=== PATIENT | male | born 1975 | race Caucasian/White ===

== ENCOUNTER 2021-08-31 02:42 | Inpatient (IN) | payer OTHER ==
[2021-08-31] MEDS ORDERED: HEPARIN SODIUM 1,000 UN/ML (10ML VL) IV ONE (02:46)
[2021-08-31] MEDS ORDERED: ASPIRIN 300 MG SUPP RECTAL STA (02:47)
[2021-08-31] MEDS ORDERED: IV FLUID CONTINUATION 1,000 ML IV ONE (03:00)
[2021-08-31 03:01] LABS: Basophils # (A) 0.1 k/uL (0-0.2); Basophils % (A) 1 %; Eosinophils # (A) 0.1 k/uL (0-0.7); Eosinophils % (A) 1 %; HCT 46.5 % (39.0-53.0); HGB 14.6 gm/dL (13.0-17.5); Hypochromasia Slight; Lymphocytes # (A) 3.9 k/uL (1.0-4.8); Lymphocytes % (A) 33 %; MCH 30.7 pg (25.0-35.0); MCHC 31.4 g/dL (31.0-37.0); MCV 97.6 fL (80.0-100.0); Mean Platelet Volume 8.3; Monocytes # (A) 0.5 k/uL (0-1.0); Monocytes % (A) 5 %; Neutrophils # (A) 7.3 k/uL (1.3-7.7); Neutrophils % (A) 60 %; Platelet Count 233 k/uL (150-450); RBC 4.77 m/uL (4.30-5.90); RDW 13.6 % (11.5-15.5)
--- NOTE | 2021-08-31 03:01 | ED ---
Chest Pain HPI - General Stated Complaint: STEMI Time Seen by Provider: 08/31/21 02:45 Source: EMS Mode of arrival: EMS Limitations: altered mental status - History of Present Illness Initial Comments: 's patient is a 46-year-old man who is brought by ambulance from his home to be evaluated for chest pain. All of the history is from EMS, as the patient became unresponsive and then was subsequently intubated. EMS reports that the patient had called them regarding chest pain and he had indicated the epigastric and substernal area. While they were attempting to assess the patient he became unresponsive. EMS reports that they had placed him on cardiac exercise specialist which showed V. fib. ACLS was instituted, the patient had chest compressions, was shocked and then at the next pulse check they did find pulses. Patient was subsequently intubated as he was still unresponsive, for airway protection. I patient had IV started IV fluids were commenced and he was transported here. Based on the EMS call, the [facility] here was activated. The patient not able to give any history of course. We are not able find any past history and the patient's record. MD Complaint: chest pain -: hour(s) Onset: during rest Pain Location: substernal Consistency: constant Anginal Symptoms: vomiting Treatments Prior to Arrival: oxygen, defibrillation, CPR - Related Data Home Medications Medication Instructions Recorded Confirmed No Known Home Medications 08/31/21 08/31/21 Allergies Allergy/AdvReac Type Severity Reaction Status Date / Time green pepper Allergy Anaphylaxis Verified 08/31/21 09:07 Penicillins Allergy Unknown Verified 08/31/21 14:02 Review of Systems ROS Statement: Those systems with pertinent positive or pertinent negative responses have been documented in the HPI. ROS Other: All systems not noted in ROS Statement are negative. Limitations: ROS unobtainable due to patients medical condition EKG Findings - EKG Results: EKG: interpreted by ERMD EKG shows: atrial fibrillation (Rate approximate 145 bpm) - Blocks, [place], Hypertrophy, ST Abn: AV and intraventricular conduction: left bundle branch block (fixed/intermittent, complete/incomplete) QRS axis and voltage: left axis deviation (-30 to -90) Past Medical History Past Medical History: No Reported History History of Any Multi-Drug Resistant Organisms: None Reported Past Surgical History: No Surgical Hx Reported Past Psychological History: No Psychological Hx Reported Smoking Status: Unknown if ever smoked Past Alcohol Use History: Unable to Obtain Past Drug Use History: Unable to Obtain - Past Family History Father Family Medical History: Myocardial Infarction (NM) Additional Family Medical History / Comment(s): at 64 of [place], also uncle of mi as well as paternal grandmother and grandfather who both has chf as well. General Exam General appearance: obtunded Head exam: Present: atraumatic, normocephalic Eye exam: Absent: scleral icterus, conjunctival injection ENT exam: Present: other (There is a 7.5 endotracheal tube secured with a bite block.) Neck exam: Present: normal inspection. Absent: tenderness Respiratory exam: Present: rhonchi (Few rhonchi with bagging.). Absent: wheezes, rales, stridor, decreased breath sounds Cardiovascular Exam: Present: tachycardia, irregular rhythm, normal heart sounds. Absent: systolic murmur, diastolic murmur, rubs, gallop GI/Abdominal exam: Present: soft. Absent: distended, tenderness, guarding, rebound, rigid, mass exam: Present: normal inspection Extremities exam: Present: normal inspection, normal capillary refill. Absent: pedal edema, calf tenderness Back exam: Present: normal inspection Neurological exam: Present: altered Skin exam: Present: warm, dry, intact, mottled. Absent: rash Course Vital Signs 08/31/21 08/31/21 02:43 02:48 Pulse Rate 133 H 162 H Respiratory 18 26 H Rate Blood Pressure 100/66 110/82 O2 Sat by Pulse 100 100 Oximetry Chest Pain MDM - MDM This patient is a 46-year-old man brought by ambulance to be evaluated for chest pain. The patient did experience out of Hospital ventricular fibrillation, which was then shocked back into a rhythm with palpable pulses. Patient is seen in the resuscitation bay by myself and by Dr. Lund as he had arrived from the initial activation. When the label stitcher personnel had a arrived the patient was transferred to the [facility]. Critical Care Time Critical Care Time: Yes (25 minutes) Disposition Clinical Impression: Cardiac arrest, STEMI (ST elevation myocardial infarction), Ventricular fibrillation Disposition: ADMITTED IP TO THIS HOSP Condition: Critical Is patient prescribed a controlled substance at d/c from ED?: No
--- NOTE | 2021-08-31 03:03 | XR ---
EXAMINATION TYPE: XR chest 1V portable DATE OF EXAM: 08/31/2021 COMPARISON: NONE HISTORY: Chest pain TECHNIQUE: Single view FINDINGS: Endotracheal tube is 4 cm from the madhu. There is nasogastric tube in the stomach. There is mild coarse pulmonary interstitial density. There is no obvious heart failure. There is no pleural effusion. IMPRESSION: Pulmonary interstitial mild infiltrates could be pulmonary fibrosis. No heart failure. En dotracheal tube in good position.
[2021-08-31] MEDS ORDERED: VERAPAMIL 2.5 MG/ML 2 ML AMP ONE (03:05)
[2021-08-31] MEDS ORDERED: LIDOCAINE 1% INJ 10MG/ML (20 ML MDV) ONE (03:05)
--- NOTE | 2021-08-31 03:07 | P.CRDCN ---
History of Present Illness History of present illness: HISTORY OF PRESENTING ILLNESS This is a pleasant 46-year-old with unknown past medical history other than a collapsed lung approximately 10 years ago. Patient currently intubated and unresponsive and history is supplied by EMS. Apparently patient had been complaining of chest pain that started tonight. En route patient was being hooked up for EKG and then became somewhat more unresponsive and then went into V. fib and CPR was performed for approximately 5 minutes. Patient was given 5 mg of Versed by EMS and intubated and currently nonresponsive however occasionally bucking the vent. He was diaphoretic and short of breath before intubation. Per EMS he had a fast heart rate in the 150s to 160s before the V. fib. Patient was cardioverted and initial EKG shows A. fib with RVR, heart rates 150, right bundle branch appearing with ST elevation aVR as well as the septal leads and lateral leads. Patient was not given aspirin in the EMS and therefore rectal aspirin was given in the ER. Blood pressure is borderline, currently 90s over 60s. Appears cool extremities. REVIEW OF SYSTEMS Unable to perform secondary to intubation, unresponsive PHYSICAL EXAMINATION Vital signs reviewed. CONSTITUTIONAL: Intubated and unresponsive, ill-appearing HEENT: Head is normocephalic. Pupils are equal, round. Sclerae anicteric. +ET tube CHEST EXAMINATION: Mild crackles HEART EXAMINATION: Irregularly irregular rate and rhythm. S1, S2 heard. No murmurs, gallops or rub. ABDOMEN: Soft, nontender. Positive bowel sounds. EXTREMITIES: 2+ peripheral pulses, no lower extremity edema and no calf tenderness. + Mildly cool extremities NEUROLOGIC EXAMINATION: Patient is unresponsive on ventilator ASSESSMENT 1. Anterior lateral STEMI 2. Status post cardiac arrest, V. fib per EMS. 5 minutes per EMS 3. New-onset atrial fibrillation with RVR 4. Unresponsive, questionable related to anesthetics given in EMS versus anoxic brain injury 5. History of collapsed lung PLAN Emergency heart catheterization. Heparin, aspirin, no beta orin given low blood pressure and likely cardiogenic shock. Mild permissive tachycardia currently in A. fib however monitor hemodynamics. Further recommendations to follow. Prognosis guarded. Monitor neuro progress. Past Medical History Past Medical History: No Reported History History of Any Multi-Drug Resistant Organisms: None Reported Past Surgical History: No Surgical Hx Reported Past Psychological History: No Psychological Hx Reported Smoking Status: Unknown if ever smoked Past Alcohol Use History: Unable to Obtain Past Drug Use History: Unable to Obtain Physical Exam Vitals: Vital Signs Pulse Resp BP Pulse Ox 08/31/21 02:43 133 H 18 100/66 100 Intake and Output 08/30/21 08/30/21 08/31/21 14:59 22:59 06:59 Other: Weight 81.647 kg Results Current Medications Generic Name Dose Route Start Last Admin Trade Name Freq PRN Reason Stop Dose Admin Heparin Sodium/Sodium Chloride 250 mls @ 9.798 mls/hr 08/31/21 03:00 25,000 unit/ Sodium Chloride IV .Q24H [facility] Protocol 12 UNITS/KG/HR Intake and Output 08/30/21 08/30/21 08/31/21 14:59 22:59 06:59 Other: Weight 81.647 kg Patient Weight 08/31/21 06:59 Weight 81.647 kg
[2021-08-31 03:10] LABS: Partial Thromboplastin Time 23.8 sec (22.0-30.0); Prothrombin Time 10.4 sec (9.0-12.0)
[2021-08-31] MEDS ORDERED: .fentaNYL (PF) 50 MCG/ML 2 ML AMP ONE (03:10)
[2021-08-31] MEDS ORDERED: LIDOCAINE 1% INJ 10MG/ML (20 ML MDV) SQ ONE (03:12)
[2021-08-31] MEDS ORDERED: VERAPAMIL SYRINGE (5 MG/10 ML) INTRAARTER ONE (03:14)
[2021-08-31 03:15] LABS: Albumin 3.3 g/dL (3.5-5.0); Total Bilirubin 0.2 mg/dL (0.2-1.3); Total Protein 5.8 g/dL (6.3-8.2)
[2021-08-31] MEDS: .fentaNYL (PF) 50 MCG/ML 2 ML AMP IV ONE ×2 (03:20→04:19)
[2021-08-31] MEDS: HEPARIN SODIUM 1,000 UN/ML (10ML VL) IV ONE ×3 (03:20→04:51)
[2021-08-31] MEDS ORDERED: MIDAZOLAM 2 MG/2 ML VIAL IV ONE ×4 (03:20→05:04)
[2021-08-31] MEDS ORDERED: TIROFIBAN BOLUS 12.5MG/250 ML BAG IV ONE (03:35)
[2021-08-31] MEDS ORDERED: PRASUGREL 10 MG TAB ONE (03:37)
[2021-08-31] MEDS ORDERED: ASPIRIN 325 MG TAB ONE (03:38)
[2021-08-31] MEDS ORDERED: TIROFIBAN 12.5MG-250ML NS 250 ML IV ONE (03:40)
[2021-08-31] MEDS: NITROGLYCERIN 1000MCG/10ML SYRINGE INTRACORON ONE ×3 (03:45→04:12)
[2021-08-31] MEDS ORDERED: PRASUGREL 10 MG TAB OG-TUBE ONE (03:45)
[2021-08-31] MEDS ORDERED: ASPIRIN 325 MG TAB OG-TUBE ONE (03:45)
[2021-08-31] MEDS ORDERED: IOPAMIDOL-370 125ML BTL INJ ONE (04:00)
[2021-08-31] MEDS ORDERED: IOPAMIDOL-370 100ML BTL INJ ONE (04:11)
[2021-08-31] MEDS ORDERED: PROPOFOL 10 MG/ML 100 ML VIAL IV ONE (05:05)
[2021-08-31] MEDS ORDERED: ZOLPIDEM 5 MG TAB PO PRN (05:25)
[2021-08-31] MEDS ORDERED: RX INFO: IV CONTRAST WAS GIVEN 1 EACH MISC MISCELLANE PRN (05:25)
[2021-08-31] MEDS ORDERED: ATROPINE SULFATE 0.1 MG/ML 10ML SYRINGE IV PRN (05:25)
[2021-08-31] MEDS ORDERED: MAG HYDROX/AL HYDROX/SIMETH 30 ML CUP PO PRN (05:25)
[2021-08-31] MEDS ORDERED: NITROGLYCERIN SL TABS 0.4 MG TAB SUBLINGUAL PRN (05:25)
[2021-08-31] MEDS ORDERED: HEPARIN SOD,PORK IN 0.45% NACL 25,000 UNIT in 0.45% NACL 1 250ML.BAG IV SCH (05:30)
--- NOTE | 2021-08-31 05:47 | P.PRCINT ---
Percutaneous Coronary Int. - Percutaneous Coronary Intervention Percutaneous Coronary Intervention: PROCEDURES PERFORMED: Left heart catheterization, bilateral coronary angiography, Impella CP placement from right femoral approach, PCI of proximal LAD with a 3.5 x 15 mm Xience IVON, PTCA diagonal 2 with a 2.5 x 12 mm balloon, PCI mid LAD with overlapping 2.75 x 12 and 2.5 x 8mm Xience IVON, right femoral angiogram, left femoral and right SFA sheath placement with external left femoral to right SFA bypass placement INDICATION: STEMI HISTORY: Patient is a pleasant 46-year-old male with a history of collapsed lung and who called EMS secondary to chest pain. During transportation patient had a V. fib arrest and was intubated with approximately 5 minutes of downtime with CPR performed and defibrillation. Patient remained sedated on ventilator and he came to emergency department and was found to have anterior lateral ST elevation. Therefore recommendations were for emergency heart catheterization. PROCEDURE: No family was available and patient was intubated therefore no consent was able to be obtained. Patient was taken to the catheterization lab and prepped and draped in usual fashion. 1% lidocaine was used to anesthetize the right radial artery. A 6-Kyrgyz sheath was placed in the right radial artery using modified Seldinger technique. A 6-Kyrgyz CLS 3.0 guide was used to engage the left main and initial images showed occlusion of proximal LAD with minimal blood pressure 75/65 with findings consistent with cardiogenic shock. Therefore decision was made to proceed with Impella CP placement. Using ultrasound guidance and micro-catheter a 6-Kyrgyz sheath was placed. Preclose was performed with one perclose. This was up sized to a 14-Kyrgyz Impella sheath. Next a 6-[place]yr[place] pigtail catheter was inserted in the left ventricle. LVEDP was measured at 39. The Impella CP was then place in the LV and turned on with output of approximately 3.5L/min. A 0.014 BMW wire was advanced into the distal LAD. Predilation was performed with a 2.5 x 12 mm balloon. Next a 3.5 x 15 mm Xience IVON was placed in the proximal LAD. There was a mid LAD 95% stenosis right at the site of a small caliber diagonal 2 branch. Therefore the diagonal 2 branch was predilated with a 2.5 x 12 mm balloon. Next a 2.75 x 12 mm Xience IVON was placed "jailing" the diagonal branch. There was a more distal lesion and this was covered with a 2.5 x 8 mm Xience IVON. There was poor flow down the diagonal branch however this appeared to be a small caliber vessel and given contrast load and patient's shock, felt best treated medically. Preintervention there was DUSTIN 0 flow and 100% stenosis. Postintervention there was DUSTIN 3 flow and 0% stenosis. RCA angiography was performed with a 5-Kyrgyz FR5. Angiogram was performed through the Impella sheath and was noted to be occlusive. Therefore the sheath was torn away and a pigtail catheter was advanced from the right radial site however there was still poor flow down the right leg. Therefore the decision was made to create a bypass. A left 6-Kyrgyz sheath was placed in the left femoral artery using ultrasound guidance. A right 6-Kyrgyz SFA sheath was placed in an antegrade fashion using ultrasound guidance. This was connected with to being with adequate flow down the right leg. The femoral sheaths were sutured in place. The right radial sheath was removed and a TR band was placed with hemostasis achieved. The patient tolerated the procedure well. Patient was transported back to the post catheterization holding area in stable condition. Conscious Sedation: Patient was monitored under the direct supervision of vision of myself for conscious sedation using Versed and fentanyl for a total duration of 120 minutes HEMODYNAMICS: Aorta: 75/65 LV: 80/20, LVEDP 39 SELECTIVE CORONARY ARTERIOGRAPHY: LEFT MAIN: The left main is a large caliber vessel which bifurcates into the LAD and circumflex. There is no significant stenosis. LEFT ANTERIOR DESCENDING CORONARY ARTERY: LAD is a large caliber vessel which wraps around to the apex. There is 100% proximal LAD stenosis and a mid LAD 90% stenosis at a small caliber diagonal 2 branch. LEFT CIRCUMFLEX CORONARY ARTERY: Left circumflex is a moderate caliber vessel without significant stenosis. RIGHT CORONARY ARTERY: The right coronary artery is a moderate to large caliber vessel which gives off a PDA and PLV branch and is the dominant vessel. There is diffuse proximal to mid 100% stenosis with mild right to right collaterals and [id number] collaterals seen. FINAL IMPRESSION: 1. CAD as described above including proximal LAD 100% stenosis and mid LAD 95% stenosis status post PCI of proximal LAD with a 3.5 x 15 mm Xience IVON, PTCA diagonal 2 with a 2.5 x 12 mm balloon, PCI mid LAD with overlapping 2.75 x 12 and 2.5 x 8mm Xience IVON 2. Additional 100% RCA stenosis with right to right and [id number] collaterals which appears chronic 3. Cardiogenic shock status post Impella CP placement 3. Right femoral sheath being occlusive, s/p left femoral to right SFA external bypass PLAN: 1. Aggressive risk factor modification per most recent ACC/AHA guidelines. 2. Continue dual antiplatelets for 12 months 3. Attempt to wean Impella CP as able 4. Continue to monitor vascular status. Continue with left femoral to right SFA bypass, flush every 2 hours. Hopeful short course of LVAD. 5. Monitor neurologic status.
[2021-08-31] MEDS: HEPARIN SODIUM,PORCINE 12,500 UNIT in DEXTROSE 5% IN WATER 500 ML IV SCH ×2 (06:03)
[2021-08-31 06:08] LABS: Glucose,Whole Blood 286 mg/dL (75-99)
[2021-08-31] MEDS: HEPARIN SOD,PORK IN 0.45% NACL 25,000 UNIT in 0.45% NACL 1 250ML.BAG IV SCH (06:14)
[2021-08-31 06:25] LABS: Basophils # (A) 0.1 k/uL (0-0.2); Basophils % (A) 0 %; Eosinophils % (A) 0 %; HCT 45.4 % (39.0-53.0); HGB 14.9 gm/dL (13.0-17.5); Lymphocytes # (A) 1.8 k/uL (1.0-4.8); Lymphocytes % (A) 7 %; MCH 30.9 pg (25.0-35.0); MCHC 32.9 g/dL (31.0-37.0); MCV 93.9 fL (80.0-100.0); Mean Platelet Volume 8.5; Monocytes # (A) 0.8 k/uL (0-1.0); Monocytes % (A) 3 %; Neutrophils % (A) 90 %; Platelet Count 283 k/uL (150-450); RBC 4.83 m/uL (4.30-5.90); RDW 13.7 % (11.5-15.5); WBC 26.8 k/uL (3.8-10.6)
[2021-08-31 06:46] LABS: Partial Thromboplastin Time 97.9 sec (22.0-30.0); Prothrombin Time 10.9 sec (9.0-12.0)
--- NOTE | 2021-08-31 06:59 | XR ---
EXAMINATION TYPE: XR chest 1V portable DATE OF EXAM: 08/31/2021 CLINICAL HISTORY: LVAD placement. TECHNIQUE: Single AP portable upright view of the chest is obtained. COMPARISON: Chest x-ray from earlier today FINDINGS: Stable endotracheal and orogastric tubes. New left ventricular assistance catheter presume d in the aorta with leads in the aortic root and left ventricle. Worsening central vascular congestion and perihilar opacities. Cardiac silhouette size is stable and within normal limits. Osseous structures are intact. IMPRESSION: As above.
--- NOTE | 2021-08-31 07:51 | P.CNPUL ---
History of Present Illness Consult date: 08/31/21 Chief complaint: cardiac arrest History of present illness: Patient is a pleasant 46-year-old male with a history of collapsed lung and who called EMS secondary to chest pain. During transportation patient had a V. fib arrest and was intubated with approximately 5 minutes of downtime with CPR performed and defibrillation. Patient remained sedated on ventilator and he came to emergency department and was found to have anterior lateral ST el evation. Therefore recommendations were for emergency heart catheterization.eft heart catheterization, bilateral coronary angiography, Impella CP placement from right femoral approach, PCI of proximal LAD with a 3.5 x 15 mm Xience IVON, PTCA diagonal 2 with a 2.5 x 12 mm balloon, PCI mid LAD with overlapping 2.75 x 12 and 2.5 x 8mm Xience IVON, right femoral angiogram, left femoral and right SFA sh eath placement with external left femoral to right SFA bypass placement was also given an empiric a device which is currently running at with his P9 with an output of 3.4 L per minute. She is currently in normal sinus rhythm. LV end- diastolic pressure was 39. The patient is currently on IV heparin. He is on no antiarrhythmics. His IV fluids running at 20 mL an hour in the urine output is normal but of 150 mL over the past 1 hour. He is on no pressors at this point in time. Most recent blood pressure is 110/96. He remains on a mechanical ventilator. He is sedated with propofol which is running at 30 mics are as per kilogram per minute. He is on assist control mode at the rate of 18, tidal volume of 450, FiO2 of 100% with a PEEP of 5. The blood gases from this morning is still pending. A chest x-ray is showing acute pulmonary edema. ET tube is in a good location. The patient has not followed device. The orogastric tube seems to be in a good location. No blood gases available yet. The patient has elevated blood sugar. There is also some mild leukocytosis, consider the possibility of an underlying aspiration. OG tube is in place and output is nonbloody. Review of Systems ROS unobtainable: due to endotracheal tube Past Medical History Past Medical History: No Reported History, Coronary Artery Disease (CAD) Additional Past Medical History / Comment(s): No history is available on this patient History of Any Multi-Drug Resistant Organisms: None Reported Past Surgical History: No Surgical Hx Reported Past Psychological History: No Psychological Hx Reported Smoking Status: Current every day smoker, Unknown if ever smoked Past Alcohol Use History: Unable to Obtain Past Drug Use History: Unable to Obtain Medications and Allergies Allergies Allergy/AdvReac Type Severity Reaction Status Date / Time Unable to Assess Allergy Unverified 08/31/21 03:20 Physical Exam Vitals: Vital Signs Pulse Pulse Resp BP Pulse Ox 08/31/21 07:00 115 H 32 H 97 08/31/21 06:45 120 H 32 H 99 08/31/21 06:30 118 H 98 08/31/21 06:15 120 H 99 08/31/21 06:00 118 H 30 H 99 08/31/21 04:00 30 H 08/31/21 02:53 138 H 142 H 24 108/60 100 08/31/21 02:48 162 H 26 H 110/82 100 08/31/21 02:43 133 H 18 100/66 100 Intake and Output 08/30/21 08/31/21 08/31/21 22:59 06:59 14:59 Intake Total 375 10 Output Total 125 40 Balance 250 -30 Intake: IV 375 10 Normal Saline 10 10 Output: Urine 125 40 Other: Voiding Method Indwelling Catheter Weight 81.647 kg 84.7 kg ABP, PAP, CO, CI - Last 8 Hours Arterial Blood Pressure 86/77 Arterial Blood Pressure 95/81 Arterial Blood Pressure 83/73 Arterial Blood Pressure 80/69 As the patient is calm comfortable sedated intubated on a mechanical ventilator. Orotracheal and orogastric tube are both in place. Head exam was generally normal. There was no scleral icterus or corneal arcus. Mucous membranes were moist. Neck was supple and without jugular venous distension, thyromegaly, or carotid bruits. Carotids were easily palpable bilaterally. There was no adenopathy. Lungs sounds are diminished and the patient has some rales in the lung bases bilaterally Cardiac exam revealed the PMI to be normally situated and sized. The rhythm was regular and no extrasystoles were noted during several minutes of auscultation. The first and second heart sounds were normal and physiologic splitting of the second heart sound was noted. There were no murmurs, rubs, clicks, or gallops. Abdominal exam revealed normal bowel sounds. The abdomen was soft, non-tender, and without masses, organomegaly, or appreciable enlargement of the abdominal a dewayne. Extremities revealed diminished pulses bilaterally and the patient has no pulse on the right foot including dorsalis pedis and posterior tibialis. The pulses are obtained by Doppler. The feet bilaterally are warm. The patient has an intolerance advice in his right groin. Neurologically, the patient is sedated with propofol. Pupils are equal and reactive to light. No agitation. No seiz ure activity has been noted. Results - Laboratory Findings CBC and BMP: 08/31/21 06:05 08/31/21 02:45 PT/INR, D-dimer PT 10.9 sec (9.0-12.0) 08/31/21 06:05 INR 1.0 (<1.2) 08/31/21 06:05 Abnormal lab findings: Abnormal Labs 08/31/21 08/31/21 08/31/21 02:45 02:45 02:45 WBC 12.0 H Neutrophils # APTT Sodium 135 L Carbon Dioxide 15 L Creatinine 1.40 H Glucose 336 H POC Glucose (mg/dL) Calcium 8.0 L AST 99 H Troponin I 0.091 H* Total Protein 5.8 L Albumin 3.3 L 08/31/21 08/31/21 08/31/21 06:05 06:05 06:07 WBC 26.8 H Neutrophils # 24.0 H APTT 97.9 H Sodium Carbon Dioxide Creatinine Glucose POC Glucose (mg/dL) 286 H Calcium AST Troponin I Total Protein Albumin - Diagnostic Findings Chest x-ray: image reviewed Assessment and Plan Plan: [address] segment elevation myocardial infarction with secondary V. fib cardiac arrest and a downtime of around 5 minutes during which the patient received CPR. The patient was taken to catheterization and the patient was given an Impella device through the right femoral artery and the patient was given 3 stents in his LAD. Currently on a combination of aspirin and Effient and IV heparin. 2 acute hypoxic respiratory failure secondary to above currently intubated on mechanical ventilator 3 acute pulmonary edema secondary to acute MO and cardiac arrest. The patient left ventricular end-diastolic pressure was elevated at 39. Consider cardiogenic shock post MO/cardiac arrest. 4 acute cardiogenic shock, secondary to above 5 acute hyperglycemia secondary to above 6 diminished pulses in all 4 extremities, positive pain by Doppler signal and the patient has an Impella for hemodynamic support. 7 acute kidney injury in the creatinine is 1.4 8 acute anion gap metabolic acidosis secondary to above, consider underlying lactic acidosis secondary to arrest 9 V. fib cardiac arrest secondary to above 10 acute leukocytosis reactive versus infectious Plan Continue ventilator support. Obtain a blood gas Try to establish a triple lumen catheter and arterial line if possible. This will be a difficult test knowing that the patient has markedly diminished pulses at this point in time Continue hemodynamic support and the patient hasn't in [place] device with a flow of 3.4 L per minute and augment the blood pressure of 111/90 Continue aspirin and Effient Continue IV heparin Patient is currently in acute pulmonary edema. May benefit from a dose of diuretic and this will be discussed with cardiology Monitor renal function Start the patient also has been insulin coverage for blood sugar control With the patient IV Zosyn 3.375 g every 12 hours every 12 hours for any potential aspiration check lactic acid level Check urine drug screen Lipid profile Echo Condition is critical and will continue to follow. High mortality risk based on above-mentioned comorbidities. Time with Patient: Greater than 30
[2021-08-31 08:12] LABS: ABG Base Excess -7.1 mmol/L; ABG HCO3 19 mmol/L (21-25); ABG PCO2 36 mmHg (35-45); ABG PH 7.33 (7.35-7.45); ABG PO2 383 mmHg (83-108); ABG TCO2 20 mmol/L (19-24)
[2021-08-31 08:13] LABS: Allen Test Performed? NO
[2021-08-31] MEDS ORDERED: NITROPRUSSIDE 50 MG in DEXTROSE 5% IN WATER 250 ML IV SCH ×4 (08:45→20:30)
[2021-08-31 09:00] LABS: Partial Thromboplastin Time 51.2 sec (22.0-30.0)
[2021-08-31] MEDS ORDERED: FUROSEMIDE 10 MG/ML 4 ML VIAL IV SCH (09:00)
[2021-08-31 09:40] LABS: Glucose,Whole Blood 171 mg/dL (75-99)
--- NOTE | 2021-08-31 09:47 | ECHOF ---
Referral Reason:Placement of Left Ventricular Assist Device MEASUREMENTS -------- HEIGHT: 175.3 cm WEIGHT: 81.6 kg BP: 83/73 IVSd: 1.4 cm (0.6 - 1.1) LVIDd: 3.9 cm (3.9 - 5.3) LVPWd: 1.5 cm (0.6 - 1.1) IVSs: 1.7 cm LVIDs: 3.7 cm LVPWs: 1.3 cm FINDINGS -------- Sinus rhythm. This was a technically adequate study. Limited Study Pt. on a vent. The left ventricular size is normal. There is moderate concentric left ventricular hypertrophy. T here is severe global hypokinesis of LV . Overall left ventricular systolic function is severely im paired with, an EF < 20%. Mild mitral regurgitation is present. Mild tricuspid regurgitation present. There is no pericardial effusion. CONCLUSIONS -------- 1. There is moderate concentric left ventricular hypertrophy. 2. There is severe global hypokinesis of LV . 3. Overall left ventricular systolic function is severely impaired with, an EF < 20%. 4. Mild mitral regurgitation is present. 5. Mild tricuspid regurgitation present. 6. There is no pericardial effusion. BREAD BAKER: Alia Gerardo RDCS
[2021-08-31] MEDS: CHLORHEXIDINE GLUCONATE 15 ML CUP MUCOUS MEM SCH ×2 (09:48→20:22)
[2021-08-31] MEDS: INSULIN ASPART (NovoLOG) 100 UNIT/ML VIAL SQ SCH ×5 (09:48→23:34)
[2021-08-31] MEDS: ASPIRIN 81 MG PO SCH (09:48)
[2021-08-31] MEDS: PANTOPRAZOLE 40 MG/10 ML VIAL IVP SCH (09:49)
[2021-08-31] MEDS: HEPARIN SODIUM 1,000 UN/ML (10ML VL) IV PRN ×3 (10:12→18:42)
[2021-08-31 11:42] LABS: Urine Barbiturate Negative (Negative); Urine Cocaine Negative (Negative); Urine Methadone Negative (Negative); Urine Opiates Negative (Negative); Urine Phencyclidine Negative (Negative)
[2021-08-31 12:06] LABS: Glucose,Whole Blood 160 mg/dL (75-99)
[2021-08-31 12:42] LABS: Partial Thromboplastin Time 65.2 sec (22.0-30.0)
[2021-08-31 15:34] LABS: Glucose,Whole Blood 137 mg/dL (75-99)
[2021-08-31 16:36] LABS: Partial Thromboplastin Time 60.3 sec (22.0-30.0)
--- NOTE | 2021-08-31 16:39 | P.PN ---
Subjective Progress Note Date: 08/31/21 This is a 46-year-old gentleman who was admitted to the hospital because of chest pain and a witnessed cardiac arrest and out of the hospital. Patient had down time of 5 minutes with CPR on the way to the hospital. Patient was defibrillated. Subsequently had a cardiac catheterization and stent placement of the proximal LAD. Patient is still intubated. His pupils are reactive. Apparently he is making some purposeful movements. His blood LAD. Her urine showed evidence of hemolysis. The Impella device was pulled out by 1 cm. There seemed to clear the hemolysis some to some extent. Doesn't have any blood work so far, but we'll may get set of blood work now. His ejection fraction is below 20%. Hopefully there will be improvement in LV function. Urine output is good. Still hypotensive. Patient is on Nipride. Prognosis is still guarded. Continue current treatment. Management of impella as per Dr. Lund Objective - Vital Signs Vital signs: Vital Signs Temp 100.6 F H 08/31/21 16:00 Pulse 121 H 08/31/21 16:15 Resp 30 H 08/31/21 16:15 BP 108/60 08/31/21 02:53 Pulse Ox 98 08/31/21 16:15 Intake & Output 08/30/21 08/31/21 08/31/21 18:59 06:59 18:59 Intake Total 375 436.219 Output Total 125 595 Balance 250 -158.781 Weight 84.7 kg 84.7 kg Intake: IV 375 190 Normal Saline 10 190 Intake, IV Titration 186.219 Amount Heparin Sod,Pork in 0.45% 83.935 NaCl 25,000 unit In 0.45 % NaCl 1 250ml.bag @ 12 UNITS/KG/HR 10.164 mls/hr IV .Q24H ROSY Rx#: [id number] Nitroprusside 50 mg In 5.217 Dextrose 5% in Water 250 ml @ Titrate IV .Q0M ROSY Rx#:[id number] propofoL 1,000 mg In 97.067 Empty Bag 1 bag @ Titrate IV .Q0M ROSY Rx#: [id number] Other 60 Output: Urine 125 595 Other: Voiding Method Indwelling Catheter Indwelling Catheter ABP, PAP, CO, CI - Last Documented Arterial Blood Pressure 82/66 - Exam GENERAL EXAM: Patient is intubated, sedated and mostly unresponsive HEENT: Normocephalic. Pupils appear to be reactive NECK: No masses, no nuchal rigidity. CHEST: No chest wall deformity. LUNGS: Diminished breath sounds HEART: S1 and S2 normal ABDOMEN: No hepatosplenomegaly, normal bowel sounds, no guarding or rigidity. SKIN: No rashes CENTRAL NERVOUS SYSTEM: Intubated and sedated with occasional movements of the arms EXTREMITIES: No cyanosis, clubbing or edema. - Labs CBC & Chem 7: 08/31/21 06:05 08/31/21 02:45 Labs: Abnormal Lab Results - Last 24 Hours (Table) 08/31/21 08/31/21 08/31/21 Range/Units 02:45 02:45 02:45 WBC 12.0 H (3.8-10.6) k/uL Neutrophils # (1.3-7.7) k/uL APTT (22.0-30.0) sec ABG pH (7.35-7.45) ABG pO2 (83-108) mmHg ABG HCO3 (21-25) mmol/L ABG O2 Saturation (94-97) % ABG Lactic Acid (0.5-1.6) mmol/L Sodium 135 L (137-145) mmol/L Carbon Dioxide 15 L (22-30) mmol/L Creatinine 1.40 H (0.66-1.25) mg/dL Glucose 336 H (74-99) mg/dL POC Glucose (mg/dL) (75-99) mg/dL Plasma Lactic Acid Damian (0.7-2.0) mmol/L Calcium 8.0 L (8.4-10.2) mg/dL AST 99 H (17-59) U/L Troponin I 0.091 H* (0.000-0.034) ng/mL Total Protein 5.8 L (6.3-8.2) g/dL Albumin 3.3 L (3.5-5.0) g/dL U Benzodiazepines Scrn (Negative) 08/31/21 08/31/21 08/31/21 Range/Units 06:05 06:05 06:07 WBC 26.8 H (3.8-10.6) k/uL Neutrophils # 24.0 H (1.3-7.7) k/uL APTT 97.9 H (22.0-30.0) sec ABG pH (7.35-7.45) ABG pO2 (83-108) mmHg ABG HCO3 (21-25) mmol/L ABG O2 Saturation (94-97) % ABG Lactic Acid (0.5-1.6) mmol/L Sodium (137-145) mmol/L Carbon Dioxide (22-30) mmol/L Creatinine (0.66-1.25) mg/dL Glucose (74-99) mg/dL POC Glucose (mg/dL) 286 H (75-99) mg/dL Plasma Lactic Acid Damian (0.7-2.0) mmol/L Calcium (8.4-10.2) mg/dL AST (17-59) U/L Troponin I (0.000-0.034) ng/mL Total Protein (6.3-8.2) g/dL Albumin (3.5-5.0) g/dL U Benzodiazepines Scrn (Negative) 08/31/21 08/31/21 08/31/21 Range/Units 08:09 08:09 08:11 WBC (3.8-10.6) k/uL Neutrophils # (1.3-7.7) k/uL APTT 51.2 H (22.0-30.0) sec ABG pH 7.33 L (7.35-7.45) ABG pO2 383 H (83-108) mmHg ABG HCO3 19 L (21-25) mmol/L ABG O2 Saturation 100.0 H (94-97) % ABG Lactic Acid 2.7 H* (0.5-1.6) mmol/L Sodium (137-145) mmol/L Carbon Dioxide (22-30) mmol/L Creatinine (0.66-1.25) mg/dL Glucose (74-99) mg/dL POC Glucose (mg/dL) (75-99) mg/dL Plasma Lactic Acid Damina (0.7-2.0) mmol/L Calcium (8.4-10.2) mg/dL AST (17-59) U/L Troponin I (0.000-0.034) ng/mL Total Protein (6.3-8.2) g/dL Albumin (3.5-5.0) g/dL U Benzodiazepines Scrn (Negative) 08/31/21 08/31/21 08/31/21 Range/Units 08:34 09:28 12:05 WBC (3.8-10.6) k/uL Neutrophils # (1.3-7.7) k/uL APTT 65.2 H (22.0-30.0) sec ABG pH (7.35-7.45) ABG pO2 (83-108) mmHg ABG HCO3 (21-25) mmol/L ABG O2 Saturation (94-97) % ABG Lactic Acid (0.5-1.6) mmol/L Sodium (137-145) mmol/L Carbon Dioxide (22-30) mmol/L Creatinine (0.66-1.25) mg/dL Glucose (74-99) mg/dL POC Glucose (mg/dL) 171 H (75-99) mg/dL Plasma Lactic Acid Damian (0.7-2.0) mmol/L Calcium (8.4-10.2) mg/dL AST (17-59) U/L Troponin I (0.000-0.034) ng/mL Total Protein (6.3-8.2) g/dL Albumin (3.5-5.0) g/dL U Benzodiazepines Scrn Positive A (Negative) 08/31/21 08/31/21 08/31/21 Range/Units 12:05 12:39 14:11 WBC (3.8-10.6) k/uL Neutrophils # (1.3-7.7) k/uL APTT 99.3 H (22.0-30.0) sec ABG pH (7.35-7.45) ABG pO2 (83-108) mmHg ABG HCO3 (21-25) mmol/L ABG O2 Saturation (94-97) % ABG Lactic Acid (0.5-1.6) mmol/L Sodium (137-145) mmol/L Carbon Dioxide (22-30) mmol/L Creatinine (0.66-1.25) mg/dL Glucose (74-99) mg/dL POC Glucose (mg/dL) 160 H (75-99) mg/dL Plasma Lactic Acid Damian 2.5 H* (0.7-2.0) mmol/L Calcium (8.4-10.2) mg/dL AST (17-59) U/L Troponin I (0.000-0.034) ng/mL Total Protein (6.3-8.2) g/dL Albumin (3.5-5.0) g/dL U Benzodiazepines Scrn (Negative) 08/31/21 Range/Units 15:27 WBC (3.8-10.6) k/uL Neutrophils # (1.3-7.7) k/uL APTT (22.0-30.0) sec ABG pH (7.35-7.45) ABG pO2 (83-108) mmHg ABG HCO3 (21-25) mmol/L ABG O2 Saturation (94-97) % ABG Lactic Acid (0.5-1.6) mmol/L Sodium (137-145) mmol/L Carbon Dioxide (22-30) mmol/L Creatinine (0.66-1.25) mg/dL Glucose (74-99) mg/dL POC Glucose (mg/dL) 137 H (75-99) mg/dL Plasma Lactic Acid Damian (0.7-2.0) mmol/L Calcium (8.4-10.2) mg/dL AST (17-59) U/L Troponin I (0.000-0.034) ng/mL Total Protein (6.3-8.2) g/dL Albumin (3.5-5.0) g/dL U Benzodiazepines Scrn (Negative) Assessment and Plan (1) Cardiac arrest Current Visit: Yes Status: Acute Code(s): I46.9 - CARDIAC ARREST, CAUSE UNSPECIFIED SNOMED Code(s): 590967575 (2) Ventricular fibrillation and flutter Current Visit: Yes Status: Acute Code(s): I49.01 - VENTRICULAR FIBRILLATION; I49.02 - VENTRICULAR FLUTTER SNOMED Code(s): 417733066 (3) Ventricular fibrillation Current Visit: Yes Status: Acute Code(s): I49.01 - VENTRICULAR FIBRILLATION SNOMED Code(s): 77726664 (4) STEMI (ST elevation myocardial infarction) Current Visit: Yes Status: Acute Code(s): I21.3 - ST ELEVATION (STEMI) MYOCARDIAL INFARCTION OF [facility] SITE SNOMED Code(s): 27923906 (5) Ischemic cardiomyopathy Current Visit: Yes Status: Acute Code(s): I25.5 - ISCHEMIC CARDIOMYOPATHY SNOMED Code(s): 347650101 (6) Cardiogenic shock Current Visit: Yes Status: Acute Code(s): R57.0 - CARDIOGENIC SHOCK SNOMED Code(s): 03069155 Plan: Continue with the current management including impella support along with Nipride. Patient's urine output is good. Hopefully LV function will improve in time. If not patient may require LVAD. Prognosis is guarded
[2021-08-31 18:22] LABS: Albumin 3.3 g/dL (3.5-5.0); Calcium 8.1 mg/dL (8.4-10.2); Potassium 4.8 mmol/L (3.5-5.1); Total Bilirubin 1.1 mg/dL (0.2-1.3)
--- NOTE | 2021-08-31 18:28 | P.HPIM ---
History of Present Illness H&P Date: 08/31/21 Chief Complaint: Cardiac arrest Mr. Willoughby is a 46-year-old male with a past medical history of collapsed lung many years back, significant family history of coronary artery disease, nicotine dependence was brought in by EMS after being called for chest pain. The patient is currently intubated and the ICU. Most of the history is apparent from the chart review and nursing staff report. As per EMS patient had V. fib during transportation and was intubated with approximately 5 minutes of downtime. In the emergency department patient was found to have ST elevation [place]. So the patient was emergently taken to cardiac catheterization and he had the stents put in to his LAD. Patient also had Impella placement during the procedure. The patient's and diastolic left ventricle was showing ejection fraction of 39%. Patient was started on IV heparin. Patient is currently intubated and sedated. Review of Systems ROS unobtainable: due to endotracheal tube Past Medical History Past Medical History: No Reported History, Coronary Artery Disease (CAD) Additional Past Medical History / Comment(s): No history is available on this patient History of Any Multi-Drug Resistant Organisms: None Reported Past Surgical History: No Surgical Hx Reported Past Psychological History: No Psychological Hx Reported Smoking Status: Current every day smoker, Unknown if ever smoked Past Alcohol Use History: Unable to Obtain Past Drug Use History: Unable to Obtain - Past Family History Father Family Medical History: Myocardial Infarction ([place]) Additional Family Medical History / Comment(s): at 64 of [place], also uncle of mi as well as paternal grandmother and grandfather who both has chf as well. Medications and Allergies Home Medications Medication Instructions Recorded Confirmed Type No Known Home Medications 08/31/21 08/31/21 History Allergies Allergy/AdvReac Type Severity Reaction Status Date / Time green pepper Allergy Anaphylaxis Verified 08/31/21 09:07 Penicillins Allergy Unknown Verified 08/31/21 14:02 Physical Exam Vitals: Vital Signs Temp Pulse Pulse Resp BP Pulse Ox 08/31/21 11:15 125 H 33 H 94 L 08/31/21 11:00 122 H 32 H 97 08/31/21 10:45 122 H 32 H 98 08/31/21 10:30 121 H 32 H 98 08/31/21 10:15 99.9 F H 121 H 32 H 98 08/31/21 10:00 120 H 30 H 98 08/31/21 09:45 121 H 30 H 98 08/31/21 09:30 120 H 30 H 98 08/31/21 09:15 115 H 30 H 99 08/31/21 09:00 116 H 30 H 98 08/31/21 08:45 117 H 33 H 99 08/31/21 08:30 114 H 31 H 99 08/31/21 08:15 114 H 32 H 99 08/31/21 08:00 98.8 F 114 H 32 H 100 08/31/21 07:45 115 H 31 H 97 08/31/21 07:30 112 H 31 H 99 08/31/21 07:15 112 H 31 H 98 08/31/21 07:00 115 H 32 H 97 08/31/21 06:45 120 H 32 H 99 08/31/21 06:30 118 H 98 08/31/21 06:15 120 H 99 08/31/21 06:00 118 H 30 H 99 08/31/21 04:00 30 H 08/31/21 02:53 138 H 142 H 24 108/60 100 08/31/21 02:48 162 H 26 H 110/82 100 08/31/21 02:43 133 H 18 100/66 100 Intake and Output 08/30/21 08/31/21 08/31/21 22:59 06:59 14:59 Intake Total 375 231.936 Output Total 125 210 Balance 250 21.936 Intake: IV 375 90 Normal Saline 10 90 Intake, IV Titration 81.936 Amount Heparin Sod,Pork in 0.45% 37.805 NaCl 25,000 unit In 0.45 % NaCl 1 250ml.bag @ 12 UNITS/KG/HR 9.798 mls/hr IV .Q24H ROSY Rx#: [id number] Nitroprusside 50 mg In 0.934 Dextrose 5% in Water 250 ml @ Titrate IV .Q0M ROSY Rx#:[id number] propofoL 1,000 mg In 43.197 Empty Bag 1 bag @ Titrate IV .Q0M ROSY Rx#: [id number] Other 60 Output: Urine 125 210 Other: Voiding Method Indwelling Catheter Weight 81.647 kg 84.7 kg ABP, PAP, CO, CI - Last 8 Hours Arterial Blood Pressure 78/65 Arterial Blood Pressure 85/80 Arterial Blood Pressure 83/78 Arterial Blood Pressure 87/82 Arterial Blood Pressure 87/84 Arterial Blood Pressure 88/85 Arterial Blood Pressure 86/83 Arterial Blood Pressure 94/91 Arterial Blood Pressure 95/92 Arterial Blood Pressure 110/100 Arterial Blood Pressure 103/96 Arterial Blood Pressure 106/98 Arterial Blood Pressure 111/105 Arterial Blood Pressure 112/103 Arterial Blood Pressure 91/85 Arterial Blood Pressure 85/74 Arterial Blood Pressure 88/79 Arterial Blood Pressure 86/77 Arterial Blood Pressure 95/81 Arterial Blood Pressure 83/73 Arterial Blood Pressure 80/69 PHYSICAL EXAMINATION: GENERAL: Sedated and intubated on a mechanical ventilator. Orogastric tube in place. HEENT: Pupils are round and equally reacting to light. EOMI. No scleral icterus. No conjunctival pallor. Normocephalic, atraumatic. CARDIOVASCULAR: S1-S2 heard PULMONARY: Respiratory breath sounds are positive. Few crackles at the lower lung bases ABDOMEN: Soft, nontender, nondistended, normoactive bowel sounds. No palpable organomegaly. MUSCULOSKELETAL: No joint swelling or deformity. EXTREMITIES: No cyanosis, clubbing, or pedal edema. NEUROLOGICAL: Sedated SKIN: No rashes. Results CBC & Chem 7: 08/31/21 06:05 08/31/21 02:45 Labs: Abnormal Lab Results - Last 24 Hours (Table) 08/31/21 08/31/21 08/31/21 Range/Units 02:45 02:45 02:45 WBC 12.0 H (3.8-10.6) k/uL Neutrophils # (1.3-7.7) k/uL APTT (22.0-30.0) sec ABG pH (7.35-7.45) ABG pO2 (83-108) mmHg ABG HCO3 (21-25) mmol/L ABG O2 Saturation (94-97) % ABG Lactic Acid (0.5-1.6) mmol/L Sodium 135 L (137-145) mmol/L Carbon Dioxide 15 L (22-30) mmol/L Creatinine 1.40 H (0.66-1.25) mg/dL Glucose 336 H (74-99) mg/dL POC Glucose (mg/dL) (75-99) mg/dL Calcium 8.0 L (8.4-10.2) mg/dL AST 99 H (17-59) U/L Troponin I 0.091 H* (0.000-0.034) ng/mL Total Protein 5.8 L (6.3-8.2) g/dL Albumin 3.3 L (3.5-5.0) g/dL U Benzodiazepines Scrn (Negative) 08/31/21 08/31/21 08/31/21 Range/Units 06:05 06:05 06:07 WBC 26.8 H (3.8-10.6) k/uL Neutrophils # 24.0 H (1.3-7.7) k/uL APTT 97.9 H (22.0-30.0) sec ABG pH (7.35-7.45) ABG pO2 (83-108) mmHg ABG HCO3 (21-25) mmol/L ABG O2 Saturation (94-97) % ABG Lactic Acid (0.5-1.6) mmol/L Sodium (137-145) mmol/L Carbon Dioxide (22-30) mmol/L Creatinine (0.66-1.25) mg/dL Glucose (74-99) mg/dL POC Glucose (mg/dL) 286 H (75-99) mg/dL Calcium (8.4-10.2) mg/dL AST (17-59) U/L Troponin I (0.000-0.034) ng/mL Total Protein (6.3-8.2) g/dL Albumin (3.5-5.0) g/dL U Benzodiazepines Scrn (Negative) 08/31/21 08/31/21 08/31/21 Range/Units 08:09 08:09 08:11 WBC (3.8-10.6) k/uL Neutrophils # (1.3-7.7) k/uL APTT 51.2 H (22.0-30.0) sec ABG pH 7.33 L (7.35-7.45) ABG pO2 383 H (83-108) mmHg ABG HCO3 19 L (21-25) mmol/L ABG O2 Saturation 100.0 H (94-97) % ABG Lactic Acid 2.7 H* (0.5-1.6) mmol/L Sodium (137-145) mmol/L Carbon Dioxide (22-30) mmol/L Creatinine (0.66-1.25) mg/dL Glucose (74-99) mg/dL POC Glucose (mg/dL) (75-99) mg/dL Calcium (8.4-10.2) mg/dL AST (17-59) U/L Troponin I (0.000-0.034) ng/mL Total Protein (6.3-8.2) g/dL Albumin (3.5-5.0) g/dL U Benzodiazepines Scrn (Negative) 08/31/21 08/31/21 Range/Units 08:34 09:28 WBC (3.8-10.6) k/uL Neutrophils # (1.3-7.7) k/uL APTT (22.0-30.0) sec ABG pH (7.35-7.45) ABG pO2 (83-108) mmHg ABG HCO3 (21-25) mmol/L ABG O2 Saturation (94-97) % ABG Lactic Acid (0.5-1.6) mmol/L Sodium (137-145) mmol/L Carbon Dioxide (22-30) mmol/L Creatinine (0.66-1.25) mg/dL Glucose (74-99) mg/dL POC Glucose (mg/dL) 171 H (75-99) mg/dL Calcium (8.4-10.2) mg/dL AST (17-59) U/L Troponin I (0.000-0.034) ng/mL Total Protein (6.3-8.2) g/dL Albumin (3.5-5.0) g/dL U Benzodiazepines Scrn Positive A (Negative) Assessment and Plan Assessment: Assessment Status post cardiac arrest ST elevation [place] LAD stenting - 3 stents Impella device in place Acute hypoxic respiratory failure secondary to above Acute cardiogenic shock Acute hyperglycemia Acute kidney injury Acute metabolic acidosis Status post CPR done for 5 minutes Acute leukocytosis PLAN: Continued on ventilatory support. Impella device in place. Cardiology, pulmonary following the patient closely. To be continued on insulin for blood sugar management. As the patient's chest x-ray was showing infiltrates, patient is covered with IV Zosyn for any possible aspiration. Overall prognosis seems to be poor. Determinations to follow depending on the progress of the patient. Family members mother and [id number] have been informed about the patient's status.
[2021-08-31 18:56] LABS: HCT 39.4 % (39.0-53.0); HGB 13.5 gm/dL (13.0-17.5); MCH 31.7 pg (25.0-35.0); MCHC 34.3 g/dL (31.0-37.0); MCV 92.4 fL (80.0-100.0); Mean Platelet Volume 10.3; Platelet Count 227 k/uL (150-450); RBC 4.27 m/uL (4.30-5.90); RDW 13.9 % (11.5-15.5); WBC 19.3 k/uL (3.8-10.6)
[2021-08-31 19:59] LABS: Glucose,Whole Blood 121 mg/dL (75-99)
[2021-08-31] MEDS: ATORVASTATIN 80 MG TAB PO SCH (20:22)
[2021-08-31 23:00] LABS: Glucose,Whole Blood 119 mg/dL (75-99)
[2021-08-31 23:34] LABS: HCT 36.1 % (39.0-53.0); HGB 12.4 gm/dL (13.0-17.5); MCH 31.5 pg (25.0-35.0); MCHC 34.4 g/dL (31.0-37.0); MCV 91.6 fL (80.0-100.0); Mean Platelet Volume 8.9; Platelet Count 175 k/uL (150-450); RBC 3.94 m/uL (4.30-5.90); RDW 13.9 % (11.5-15.5); WBC 17.8 k/uL (3.8-10.6)
[2021-08-31 23:42] LABS: Magnesium 2.1 mg/dL (1.6-2.3)
[2021-09-01 04:46] LABS: Glucose,Whole Blood 126 mg/dL (75-99)
[2021-09-01] MEDS: HEPARIN SOD,PORK IN 0.45% NACL 25,000 UNIT in 0.45% NACL 1 250ML.BAG IV SCH (04:46)
[2021-09-01] MEDS: INSULIN ASPART (NovoLOG) 100 UNIT/ML VIAL SQ SCH ×5 (04:47→20:13)
[2021-09-01 05:00] LABS: Basophils # (A) 0.1 k/uL (0-0.2); Basophils % (A) 0 %; Eosinophils % (A) 0 %; HCT 34.2 % (39.0-53.0); HGB 11.9 gm/dL (13.0-17.5); Lymphocytes # (A) 2.4 k/uL (1.0-4.8); Lymphocytes % (A) 16 %; MCH 31.6 pg (25.0-35.0); MCHC 34.6 g/dL (31.0-37.0); MCV 91.2 fL (80.0-100.0); Mean Platelet Volume 8.6; Monocytes # (A) 0.7 k/uL (0-1.0); Monocytes % (A) 5 %; Neutrophils # (A) 11.6 k/uL (1.3-7.7); Neutrophils % (A) 78 %; Platelet Count 183 k/uL (150-450); RBC 3.75 m/uL (4.30-5.90); RDW 13.9 % (11.5-15.5); WBC 14.9 k/uL (3.8-10.6)
[2021-09-01 05:52] LABS: ABG Base Excess -2.5 mmol/L; ABG HCO3 22 mmol/L (21-25); ABG Oxygen Saturation 98.3 % (94-97); ABG PCO2 33 mmHg (35-45); ABG PH 7.43 (7.35-7.45); ABG PO2 124 mmHg (83-108); ABG TCO2 23 mmol/L (19-24); Allen Test Performed? Yes
[2021-09-01 06:07] LABS: Chol/HDL Ratio 3.56 Ratio; HDL Cholesterol 41.8 mg/dL (40.00-60.00); LDL Cholesterol,Calculated 74.6 mg/dL (0.0-131.0); VLDL Calculation 32.6 mg/dL (5.00-40.00)
[2021-09-01 07:20] LABS: ALT 158 U/L (4-49); African American GFR (CKD) >90 (>60 ml/min/1.73 sqM); Albumin 2.7 g/dL (3.5-5.0); Alkaline Phosphatase 85 U/L (38-126); Anion Gap 7 mmol/L; Blood Urea Nitrogen 29 mg/dL (9-20); Calcium 8.3 mg/dL (8.4-10.2); Carbon Dioxide 19 mmol/L (22-30); Chloride 112 mmol/L (98-107); Glucose 134 mg/dL (74-99); Magnesium 2.2 mg/dL (1.6-2.3); Non-African American GFR(CKD) 81 (>60 ml/min/1.73 sqM); Potassium 4.4 mmol/L (3.5-5.1); Sodium 138 mmol/L (137-145); Total Bilirubin 0.8 mg/dL (0.2-1.3); Total Protein 5.1 g/dL (6.3-8.2)
[2021-09-01 07:36] LABS: Glucose,Whole Blood 128 mg/dL (75-99)
[2021-09-01 07:47] LABS: LDH 8638 U/L (313-618)
[2021-09-01 08:04] LABS: AST 821 U/L (17-59)
[2021-09-01] MEDS: PANTOPRAZOLE 40 MG/10 ML VIAL IVP SCH (08:22)
[2021-09-01] MEDS: ASPIRIN 81 MG PO SCH (08:22)
[2021-09-01] MEDS: PRASUGREL 10 MG TAB PO SCH (08:22)
[2021-09-01] MEDS: CHLORHEXIDINE GLUCONATE 15 ML CUP MUCOUS MEM SCH ×2 (08:22→20:13)
--- NOTE | 2021-09-01 08:24 | XR ---
EXAMINATION TYPE: XR chest 1V portable DATE OF EXAM: 09/01/2021 Comparison: 08/31/2021 Clinical History: 46-year-old male CHF Findings: Heart remains upper limits of normal in size. ET and NG tubes are in place. The LVAD device show marianna lar positioning and should be correlated clinically. There is improving pulmonary edema and mild inte rstitial changes remain. No pleural effusion. Impression: Improving pulmonary edema with mild interstitial changes remaining.
--- NOTE | 2021-09-01 08:39 | P.PN ---
Subjective Progress Note Date: 09/01/21 Patient is a pleasant 46-year-old male with a history of collapsed lung and who called EMS secondary to chest pain. During transportation patient had a V. fib arrest and was intubated with approximately 5 minutes of downtime with CPR performed and defibrillation. Patient remained sedated on ventilator and he came to emergency department and was found to have anterior lateral ST elevation. Therefore recommendations were for emergency heart catheterization.eft heart catheterization, bilateral coronary angiography, Impella CP placement from right femoral approach, PCI of proximal LAD with a 3.5 x 15 mm Xience IVON, PTCA diagonal 2 with a 2.5 x 12 mm balloon, PCI mid LAD with overlapping 2.75 x 12 and 2.5 x 8mm Xience IVON, right femoral angiogram, left femoral and right SFA sheath placement with external left femoral to right SFA bypass placement was also given an empiric a device which is currently running at with his P9 with an output of 3.4 L per minute. She is currently in normal sinus rhythm. LV end-diastolic pressure was 39. The patient is currently on IV heparin. He is on no antiarrhythmics. His IV fluids running at 20 mL an hour in the urine output is normal but of 150 mL over the past 1 hour. He is on no pressors at this point in time. Most recent blood pressure is 110/96. He remains on a mechanical ventilator. He is sedated with propofol which is running at 30 mics are as per kilogram per minute. He is on assist control mode at the rate of 18, tidal volume of 450, FiO2 of 100% with a PEEP of 5. The blood gases from this morning is still pending. A chest x-ray is showing acute pulmonary edema. ET tube is in a good location. The patient has not followed device. The orogastric tube seems to be in a good location. No blood gases available yet. The patient has elevated blood sugar. There is also some mild leukocytosis, consider the possibility of an underlying aspiration. OG tube is in place and output is nonbloody. On 09/01/2021 I'm seeing this patient for a follow-up. The patient is still sedated on propofol which is running at 40 mcg/kg per minute. Remains intubated on a mechanical ventilator. He is on an assist-control mode at the rate of 18, tidal volume of 450, FiO2 40% with a PEEP of 5. Chest x-ray shows clearing of the previously noted pulmonary edema. The patient has been making excellent urine output and the patient has been diuresing well while being supported with in follow-up. The blood gases from today showed a pH of 7.43 with a pCO2 of 33 and pO2 of 124 and there is adequate oxygenation and ventilation at this point in time. Chest x-ray has very much normalized at this point in time. ET tube is in a good location. Orogastric tube is also in good location. In terms of his hemodynamics, the patient remains in sinus tachycardia at the rate of 120. His mean arterial pressure is 68 and this is augmented through Impella with a flow of 2.8 L and the patient is on a P5 support. Urine output has been in the order of 75 mL's an hour. Blood work from today shows a white cell count of 14.9 with a hemoglobin of 11.9. The platelet counts are at 183 which is stable compared to yesterday. Coagulation profile shows a PT of 73. The patient has hyper running through the device. He did have some bleeding at the site of insertion of the Impella and a FemoStop was applied to the area. His renal function is stable with a creatinine of 1.1 and this is improved compared to yesterday. BUN is at 29. Electrolytes are normal with a potassium level of 4.4. Troponin peaked at 591. He remains on aspirin. Remains on Effient. Remains nothing by mouth. OG tube is in place. Objective - Vital Signs Vital signs: Vital Signs Temp 37.8 F L 09/01/21 08:00 Pulse 124 H 09/01/21 08:00 Resp 26 H 09/01/21 08:00 BP 108/60 08/31/21 02:53 Pulse Ox 98 09/01/21 08:00 Intake & Output 08/31/21 09/01/21 09/01/21 18:59 06:59 18:59 Intake Total 564.339 695.494 52 Output Total 730 1480 175 Balance -165.661 -784.506 -123 Weight 84.7 kg 81.5 kg Intake: IV 284 300 52 Normal Saline 230 240 40 Pressure Bag 54 60 12 Intake, IV Titration 220.339 395.494 Amount Heparin Sod,Pork in 0.45% 116.346 118.034 NaCl 25,000 unit In 0.45 % NaCl 1 250ml.bag @ 12 UNITS/KG/HR 10.164 mls/hr IV .Q24H [facility] Rx#: [id number] Nitroprusside 50 mg In 6.926 0.163 Dextrose 5% in Water 250 ml @ Titrate IV .Q0M ROSY Rx#:[id number] Nitroprusside 50 mg In 70.681 Dextrose 5% in Water 250 ml @ Titrate IV .Q0M ROSY Rx#:[id number] propofoL 1,000 mg In 97.067 206.616 Empty Bag 1 bag @ Titrate IV .Q0M ROSY Rx#: [id number] Other 60 Output: Gastric Drainage 400 Urine 730 1080 175 Other: Voiding Method Indwelling Catheter Indwelling Catheter # Bowel Movements 1 ABP, PAP, CO, CI - Last Documented Arterial Blood Pressure 82/62 - Exam As the patient is calm comfortable sedated intubated on a mechanical ventilator. Orotracheal and orogastric tube are both in place. Head exam was generally normal. There was no scleral icterus or corneal arcus. Mucous membranes were moist. Neck was supple and without jugular venous distension, thyromegaly, or carotid bruits. Carotids were easily palpable bilaterally. There was no adenopathy. Lungs sounds are diminished and the patient has some rales in the lung bases bilaterally Cardiac exam revealed the PMI to be normally situated and sized. The rhythm was regular and no extrasystoles were noted during several minutes of auscultation. The first and second heart sounds were normal and physiologic splitting of the second heart sound was noted. There were no murmurs, rubs, clicks, or gallops. Abdominal exam revealed normal bowel sounds. The abdomen was soft, non-tender, and without masses, organomegaly, or appreciable enlargement of the abdominal aorta. Extremities revealed diminished pulses and on today's evaluation, there is palpable pulses in the feet bilaterally in the upper extremities and the pulsation has improved. The patient has a FemoStop in the right groin area. No hematoma. No significant bleeding. The feet bilaterally are warm. The patient has an intolerance advice in his right groin. Neurologically, the patient is sedated with propofol. Pupils are equal and reactive to light. No agitation. No seizure activity has been noted. - Labs CBC & Chem 7: 09/01/21 04:40 09/01/21 04:40 Labs: Abnormal Lab Results - Last 24 Hours (Table) 08/31/21 08/31/21 08/31/21 Range/Units 08:09 08:09 08:34 WBC (3.8-10.6) k/uL RBC (4.30-5.90) m/uL Hgb (13.0-17.5) gm/dL Hct (39.0-53.0) % Neutrophils # (1.3-7.7) k/uL APTT 51.2 H (22.0-30.0) sec ABG pCO2 (35-45) mmHg ABG pO2 (83-108) mmHg ABG O2 Saturation (94-97) % ABG Lactic Acid 2.7 H* (0.5-1.6) mmol/L Sodium (137-145) mmol/L Chloride (98-107) mmol/L Carbon Dioxide (22-30) mmol/L BUN (9-20) mg/dL Creatinine (0.66-1.25) mg/dL Glucose (74-99) mg/dL POC Glucose (mg/dL) (75-99) mg/dL Plasma Lactic Acid Damian (0.7-2.0) mmol/L Calcium (8.4-10.2) mg/dL AST (17-59) U/L ALT (4-49) U/L Lactate Dehydrogenase (313-618) U/L Troponin I (0.000-0.034) ng/mL Total Protein (6.3-8.2) g/dL Albumin (3.5-5.0) g/dL Triglycerides (0.00-149.00) mg/dL U Benzodiazepines Scrn Positive A (Negative) 08/31/21 08/31/21 08/31/21 Range/Units 09:28 12:05 12:05 WBC (3.8-10.6) k/uL RBC (4.30-5.90) m/uL Hgb (13.0-17.5) gm/dL Hct (39.0-53.0) % Neutrophils # (1.3-7.7) k/uL APTT 65.2 H (22.0-30.0) sec ABG pCO2 (35-45) mmHg ABG pO2 (83-108) mmHg ABG O2 Saturation (94-97) % ABG Lactic Acid (0.5-1.6) mmol/L Sodium (137-145) mmol/L Chloride (98-107) mmol/L Carbon Dioxide (22-30) mmol/L BUN (9-20) mg/dL Creatinine (0.66-1.25) mg/dL Glucose (74-99) mg/dL POC Glucose (mg/dL) 171 H 160 H (75-99) mg/dL Plasma Lactic Acid Damian (0.7-2.0) mmol/L Calcium (8.4-10.2) mg/dL AST (17-59) U/L ALT (4-49) U/L Lactate Dehydrogenase (313-618) U/L Troponin I (0.000-0.034) ng/mL Total Protein (6.3-8.2) g/dL Albumin (3.5-5.0) g/dL Triglycerides (0.00-149.00) mg/dL U Benzodiazepines Scrn (Negative) 08/31/21 08/31/21 08/31/21 Range/Units 12:39 14:11 15:26 WBC (3.8-10.6) k/uL RBC (4.30-5.90) m/uL Hgb (13.0-17.5) gm/dL Hct (39.0-53.0) % Neutrophils # (1.3-7.7) k/uL APTT 99.3 H (22.0-30.0) sec ABG pCO2 (35-45) mmHg ABG pO2 (83-108) mmHg ABG O2 Saturation (94-97) % ABG Lactic Acid (0.5-1.6) mmol/L Sodium (137-145) mmol/L Chloride (98-107) mmol/L Carbon Dioxide (22-30) mmol/L BUN (9-20) mg/dL Creatinine (0.66-1.25) mg/dL Glucose (74-99) mg/dL POC Glucose (mg/dL) (75-99) mg/dL Plasma Lactic Acid Damian 2.5 H* (0.7-2.0) mmol/L Calcium (8.4-10.2) mg/dL AST (17-59) U/L ALT (4-49) U/L Lactate Dehydrogenase 9909 H (313-618) U/L Troponin I (0.000-0.034) ng/mL Total Protein (6.3-8.2) g/dL Albumin (3.5-5.0) g/dL Triglycerides (0.00-149.00) mg/dL U Benzodiazepines Scrn (Negative) 08/31/21 08/31/21 08/31/21 Range/Units 15:26 15:26 15:27 WBC 19.3 H (3.8-10.6) k/uL RBC 4.27 L (4.30-5.90) m/uL Hgb (13.0-17.5) gm/dL Hct (39.0-53.0) % Neutrophils # (1.3-7.7) k/uL APTT (22.0-30.0) sec ABG pCO2 (35-45) mmHg ABG pO2 (83-108) mmHg ABG O2 Saturation (94-97) % ABG Lactic Acid (0.5-1.6) mmol/L Sodium (137-145) mmol/L Chloride (98-107) mmol/L Carbon Dioxide (22-30) mmol/L BUN (9-20) mg/dL Creatinine (0.66-1.25) mg/dL Glucose (74-99) mg/dL POC Glucose (mg/dL) 137 H (75-99) mg/dL Plasma Lactic Acid Damian (0.7-2.0) mmol/L Calcium (8.4-10.2) mg/dL AST (17-59) U/L ALT (4-49) U/L Lactate Dehydrogenase (313-618) U/L Troponin I 591.000 H* (0.000-0.034) ng/mL Total Protein (6.3-8.2) g/dL Albumin (3.5-5.0) g/dL Triglycerides (0.00-149.00) mg/dL U Benzodiazepines Scrn (Negative) 08/31/21 08/31/21 08/31/21 Range/Units 15:29 16:07 17:28 WBC (3.8-10.6) k/uL RBC (4.30-5.90) m/uL Hgb (13.0-17.5) gm/dL Hct (39.0-53.0) % Neutrophils # (1.3-7.7) k/uL APTT 60.3 H 56.2 H (22.0-30.0) sec ABG pCO2 (35-45) mmHg ABG pO2 (83-108) mmHg ABG O2 Saturation (94-97) % ABG Lactic Acid (0.5-1.6) mmol/L Sodium 136 L (137-145) mmol/L Chloride 111 H (98-107) mmol/L Carbon Dioxide 16 L (22-30) mmol/L BUN 29 H (9-20) mg/dL Creatinine 1.44 H (0.66-1.25) mg/dL Glucose 137 H (74-99) mg/dL POC Glucose (mg/dL) (75-99) mg/dL Plasma Lactic Acid Damian (0.7-2.0) mmol/L Calcium 8.1 L (8.4-10.2) mg/dL AST 1808 H (17-59) U/L ALT 213 H (4-49) U/L Lactate Dehydrogenase (313-618) U/L Troponin I (0.000-0.034) ng/mL Total Protein 6.0 L (6.3-8.2) g/dL Albumin 3.3 L (3.5-5.0) g/dL Triglycerides 163.00 H (0.00-149.00) mg/dL U Benzodiazepines Scrn (Negative) 08/31/21 08/31/21 08/31/21 Range/Units 19:57 20:00 20:07 WBC (3.8-10.6) k/uL RBC (4.30-5.90) m/uL Hgb (13.0-17.5) gm/dL Hct (39.0-53.0) % Neutrophils # (1.3-7.7) k/uL APTT 78.6 H (22.0-30.0) sec ABG pCO2 (35-45) mmHg ABG pO2 (83-108) mmHg ABG O2 Saturation (94-97) % ABG Lactic Acid (0.5-1.6) mmol/L Sodium (137-145) mmol/L Chloride (98-107) mmol/L Carbon Dioxide (22-30) mmol/L BUN (9-20) mg/dL Creatinine (0.66-1.25) mg/dL Glucose (74-99) mg/dL POC Glucose (mg/dL) 121 H (75-99) mg/dL Plasma Lactic Acid Damian (0.7-2.0) mmol/L Calcium (8.4-10.2) mg/dL AST (17-59) U/L ALT (4-49) U/L Lactate Dehydrogenase 9988 H (313-618) U/L Troponin I (0.000-0.034) ng/mL Total Protein (6.3-8.2) g/dL Albumin (3.5-5.0) g/dL Triglycerides (0.00-149.00) mg/dL U Benzodiazepines Scrn (Negative) 08/31/21 08/31/21 08/31/21 Range/Units 22:56 22:58 23:15 WBC 17.8 H (3.8-10.6) k/uL RBC 3.94 L (4.30-5.90) m/uL Hgb 12.4 L (13.0-17.5) gm/dL Hct 36.1 L (39.0-53.0) % Neutrophils # (1.3-7.7) k/uL APTT 72.1 H (22.0-30.0) sec ABG pCO2 (35-45) mmHg ABG pO2 (83-108) mmHg ABG O2 Saturation (94-97) % ABG Lactic Acid (0.5-1.6) mmol/L Sodium (137-145) mmol/L Chloride (98-107) mmol/L Carbon Dioxide (22-30) mmol/L BUN (9-20) mg/dL Creatinine (0.66-1.25) mg/dL Glucose (74-99) mg/dL POC Glucose (mg/dL) 119 H (75-99) mg/dL Plasma Lactic Acid Damian (0.7-2.0) mmol/L Calcium (8.4-10.2) mg/dL AST (17-59) U/L ALT (4-49) U/L Lactate Dehydrogenase (313-618) U/L Troponin I (0.000-0.034) ng/mL Total Protein (6.3-8.2) g/dL Albumin (3.5-5.0) g/dL Triglycerides (0.00-149.00) mg/dL U Benzodiazepines Scrn (Negative) 09/01/21 09/01/21 09/01/21 Range/Units 02:00 04:40 04:40 WBC 14.9 H (3.8-10.6) k/uL RBC 3.75 L (4.30-5.90) m/uL Hgb 11.9 L (13.0-17.5) gm/dL Hct 34.2 L (39.0-53.0) % Neutrophils # 11.6 H (1.3-7.7) k/uL APTT 70.1 H (22.0-30.0) sec ABG pCO2 (35-45) mmHg ABG pO2 (83-108) mmHg ABG O2 Saturation (94-97) % ABG Lactic Acid (0.5-1.6) mmol/L Sodium (137-145) mmol/L Chloride 112 H (98-107) mmol/L Carbon Dioxide 19 L (22-30) mmol/L BUN 29 H (9-20) mg/dL Creatinine (0.66-1.25) mg/dL Glucose 134 H (74-99) mg/dL POC Glucose (mg/dL) (75-99) mg/dL Plasma Lactic Acid Damian (0.7-2.0) mmol/L Calcium 8.3 L (8.4-10.2) mg/dL AST 821 H (17-59) U/L ALT 158 H (4-49) U/L Lactate Dehydrogenase 8638 H (313-618) U/L Troponin I (0.000-0.034) ng/mL Total Protein 5.1 L (6.3-8.2) g/dL Albumin 2.7 L (3.5-5.0) g/dL Triglycerides (0.00-149.00) mg/dL U Benzodiazepines Scrn (Negative) 09/01/21 09/01/21 09/01/21 Range/Units 04:40 04:43 05:45 WBC (3.8-10.6) k/uL RBC (4.30-5.90) m/uL Hgb (13.0-17.5) gm/dL Hct (39.0-53.0) % Neutrophils # (1.3-7.7) k/uL APTT 73.9 H (22.0-30.0) sec ABG pCO2 33 L (35-45) mmHg ABG pO2 124 H (83-108) mmHg ABG O2 Saturation 98.3 H (94-97) % ABG Lactic Acid (0.5-1.6) mmol/L Sodium (137-145) mmol/L Chloride (98-107) mmol/L Carbon Dioxide (22-30) mmol/L BUN (9-20) mg/dL Creatinine (0.66-1.25) mg/dL Glucose (74-99) mg/dL POC Glucose (mg/dL) 126 H (75-99) mg/dL Plasma Lactic Acid Damian (0.7-2.0) mmol/L Calcium (8.4-10.2) mg/dL AST (17-59) U/L ALT (4-49) U/L Lactate Dehydrogenase (313-618) U/L Troponin I (0.000-0.034) ng/mL Total Protein (6.3-8.2) g/dL Albumin (3.5-5.0) g/dL Triglycerides (0.00-149.00) mg/dL U Benzodiazepines Scrn (Negative) 09/01/21 Range/Units 07:34 WBC (3.8-10.6) k/uL RBC (4.30-5.90) m/uL Hgb (13.0-17.5) gm/dL Hct (39.0-53.0) % Neutrophils # (1.3-7.7) k/uL APTT (22.0-30.0) sec ABG pCO2 (35-45) mmHg ABG pO2 (83-108) mmHg ABG O2 Saturation (94-97) % ABG Lactic Acid (0.5-1.6) mmol/L Sodium (137-145) mmol/L Chloride (98-107) mmol/L Carbon Dioxide (22-30) mmol/L BUN (9-20) mg/dL Creatinine (0.66-1.25) mg/dL Glucose (74-99) mg/dL POC Glucose (mg/dL) 128 H (75-99) mg/dL Plasma Lactic Acid Damian (0.7-2.0) mmol/L Calcium (8.4-10.2) mg/dL AST (17-59) U/L ALT (4-49) U/L Lactate Dehydrogenase (313-618) U/L Troponin I (0.000-0.034) ng/mL Total Protein (6.3-8.2) g/dL Albumin (3.5-5.0) g/dL Triglycerides (0.00-149.00) mg/dL U Benzodiazepines Scrn (Negative) Microbiology - Last 24 Hours (Table) 08/31/21 20:00 Sputum Culture - Preliminary Sputum Assessment and Plan Plan: [address] segment elevation myocardial infarction with secondary V. fib cardiac arrest and a downtime of around 5 minutes during which the patient received CPR. The patient was taken to catheterization and the patient was given an Impella device through the right femoral artery and the patient was given 3 stents in his LAD. Currently on a combination of aspirin and Effient and IV heparin. Limited stable. The patient's mean arterial pressure is 66 at this point in time. The patient is being augmented with a 2.8 L per minute cardiac output fluid in [place] device. He is on a P5 support at this point in time. Cardiology decided to continue the supportive brother 24 hours. Based on that, the patient will be kept intubated on a mechanical ventilator. He'll be kept sedated for now. Chest x-ray shows improvement in the pulmonary edema. The troponin peaked at 591 2 acute hypoxic respiratory failure secondary to above currently intubated on mechanical ventilator 3 acute pulmonary edema secondary to acute NJ and cardiac arrest. The patient left ventricular end-diastolic pressure was elevated at 39. Consider cardiogenic shock post NJ/cardiac arrest. 4 acute cardiogenic shock, secondary to above 5 acute hyperglycemia secondary to above 6 diminished pulses in all 4 extremities, positive pain by Doppler signal and the patient has an Impella for hemodynamic support. 7 acute kidney injury in the creatinine is 1.4, improved in the creatinine is down to 1.1 8 acute anion gap metabolic acidosis secondary to above, consider underlying lactic acidosis secondary to arrest 9 V. fib cardiac arrest secondary to above 10 acute leukocytosis reactive versus infectious, improving 11 abnormal LFTs, improving Plan Continue ventilator support. No ventilator changes for today. Impella device will be kept for another 24 hours Continue hemodynamic support and the patient has ImPella device with a flow of 2.9 L per minute (P5) Continue aspirin and Effient Continue IV heparin Patient chest x-ray shows recovering of the acute pulmonary edema. Monitor renal function Start the patient also has been insulin coverage for blood sugar control Continue IV Rocephin as an empiric antibiotic coverage Start enteral feeding for nutritional support Lactic acid level improving Monitor hematologic profile urine output Keep the patient sedated for now We'll continue to follow make further recommendations. The plan is to keep Impella device in for another 24 hours. As such, the patient will be kept intubated on a mechanical ventilator for another 24 hours. This is a critically care evaluation that was done and more than 30 minutes. Time with Patient: Greater than 30
[2021-09-01 08:48] VITALS: BMI 26.5
[2021-09-01 11:20] LABS: Glucose,Whole Blood 126 mg/dL (75-99)
--- NOTE | 2021-09-01 14:31 | P.PN ---
Subjective Progress Note Date: 09/01/21 This is a 46-year-old gentleman who was admitted to the hospital because of chest pain and a witnessed cardiac arrest ,out of the hospital. Patient had down time of 5 minutes with CPR on the way to the hospital. Patient was defibrillated. Subsequently had a cardiac catheterization and stent placement o f the proximal LAD. Patient is still intubated. His pupils are reactive. Apparently he is making some purposeful movements. . Her urine showed evidence of hemolysis. The Impella device was pulled out by 1 cm. There seemed to clear the hemolysis to some extent. Doesn't have any blood work so far, but we'll may get set of blood work now. His ejection fraction is below 20%. Hopefully there will be improvement in LV function. Urine output is good. Still hypotensive. Patient is on Nipride. Prognosis is still guarded. Continue current treatment. Management of impella as per Dr. Lund. 07/04/2021: This patient is still remains intubated. A chest x-ray has shown much improvement. His urine output is good. His renal function is fair. His tolerating weaning of the in fairly well. Dr. Lund is planning to do stent placement of the RCA tomorrow and going to keep the implanted tomorrow. Patient also going to remain on a ventilator until tomorrow. His mental status is not clear. He still. He is a sedated at this time. Lungs appeared to be clear. Heart is regular. Patient is tachycardic.. Continue current management. Overall this seemed to be some improvement Objective - Vital Signs Vital signs: Vital Signs Temp 100.4 F H 09/01/21 12:00 Pulse 120 H 09/01/21 14:00 Resp 25 H 09/01/21 14:00 BP 108/60 08/31/21 02:53 Pulse Ox 100 09/01/21 14:00 Intake & Output 08/31/21 09/01/21 09/01/21 18:59 06:59 18:59 Intake Total 564.339 695.494 420.126 Output Total 730 1480 575 Balance -165.661 -784.506 -154.874 Weight 84.7 kg 81.5 kg 81.5 kg Intake: IV 284 300 208 Normal Saline 230 240 160 Pressure Bag 54 60 48 Intake, IV Titration 220.339 395.494 152.126 Amount Heparin Sod,Pork in 0.45% 116.346 118.034 52.126 NaCl 25,000 unit In 0.45 % NaCl 1 250ml.bag @ 12 UNITS/KG/HR 10.164 mls/hr IV .Q24H ROSY Rx#: [id number] Nitroprusside 50 mg In 6.926 0.163 Dextrose 5% in Water 250 ml @ Titrate IV .Q0M ROSY Rx#:[id number] Nitroprusside 50 mg In 70.681 Dextrose 5% in Water 250 ml @ Titrate IV .Q0M ROSY Rx#:[id number] propofoL 1,000 mg In 97.067 206.616 100 Empty Bag 1 bag @ Titrate IV .Q0M ROSY Rx#: [id number] Other 60 60 Output: Gastric Drainage 400 100 Urine 730 1080 475 Other: Voiding Method Indwelling Catheter Indwelling Catheter Indwelling Catheter # Bowel Movements 1 ABP, PAP, CO, CI - Last Documented Arterial Blood Pressure 82/62 - Exam GENERAL EXAM: Patient is intubated, sedated and mostly unresponsive HEENT: Normocephalic. Pupils appear to be reactive NECK: No masses, no nuchal rigidity. CHEST: No chest wall deformity. LUNGS: Diminished breath sounds HEART: S1 and S2 normal ABDOMEN: No hepatosplenomegaly, normal bowel sounds, no guarding or rigidity. SKIN: No rashes CENTRAL NERVOUS SYSTEM: Intubated and sedated with occasional movements of the arms EXTREMITIES: No cyanosis, clubbing or edema. - Labs CBC & Chem 7: 09/01/21 04:40 09/01/21 04:40 Labs: Abnormal Lab Results - Last 24 Hours (Table) 08/31/21 08/31/21 08/31/21 Range/Units 14:11 15:26 15:26 WBC (3.8-10.6) k/uL RBC (4.30-5.90) m/uL Hgb (13.0-17.5) gm/dL Hct (39.0-53.0) % Neutrophils # (1.3-7.7) k/uL APTT 99.3 H (22.0-30.0) sec ABG pCO2 (35-45) mmHg ABG pO2 (83-108) mmHg ABG O2 Saturation (94-97) % Sodium (137-145) mmol/L Chloride (98-107) mmol/L Carbon Dioxide (22-30) mmol/L BUN (9-20) mg/dL Creatinine (0.66-1.25) mg/dL Glucose (74-99) mg/dL POC Glucose (mg/dL) (75-99) mg/dL Calcium (8.4-10.2) mg/dL AST (17-59) U/L ALT (4-49) U/L Lactate Dehydrogenase 9909 H (313-618) U/L Troponin I 591.000 H* (0.000-0.034) ng/mL Total Protein (6.3-8.2) g/dL Albumin (3.5-5.0) g/dL Triglycerides (0.00-149.00) mg/dL Procalcitonin (0.02-0.09) ng/mL 08/31/21 08/31/21 08/31/21 Range/Units 15:26 15:27 15:29 WBC 19.3 H (3.8-10.6) k/uL RBC 4.27 L (4.30-5.90) m/uL Hgb (13.0-17.5) gm/dL Hct (39.0-53.0) % Neutrophils # (1.3-7.7) k/uL APTT (22.0-30.0) sec ABG pCO2 (35-45) mmHg ABG pO2 (83-108) mmHg ABG O2 Saturation (94-97) % Sodium 136 L (137-145) mmol/L Chloride 111 H (98-107) mmol/L Carbon Dioxide 16 L (22-30) mmol/L BUN 29 H (9-20) mg/dL Creatinine 1.44 H (0.66-1.25) mg/dL Glucose 137 H (74-99) mg/dL POC Glucose (mg/dL) 137 H (75-99) mg/dL Calcium 8.1 L (8.4-10.2) mg/dL AST 1808 H (17-59) U/L ALT 213 H (4-49) U/L Lactate Dehydrogenase (313-618) U/L Troponin I (0.000-0.034) ng/mL Total Protein 6.0 L (6.3-8.2) g/dL Albumin 3.3 L (3.5-5.0) g/dL Triglycerides 163.00 H (0.00-149.00) mg/dL Procalcitonin (0.02-0.09) ng/mL 08/31/21 08/31/21 08/31/21 Range/Units 16:07 17:28 19:57 WBC (3.8-10.6) k/uL RBC (4.30-5.90) m/uL Hgb (13.0-17.5) gm/dL Hct (39.0-53.0) % Neutrophils # (1.3-7.7) k/uL APTT 60.3 H 56.2 H (22.0-30.0) sec ABG pCO2 (35-45) mmHg ABG pO2 (83-108) mmHg ABG O2 Saturation (94-97) % Sodium (137-145) mmol/L Chloride (98-107) mmol/L Carbon Dioxide (22-30) mmol/L BUN (9-20) mg/dL Creatinine (0.66-1.25) mg/dL Glucose (74-99) mg/dL POC Glucose (mg/dL) 121 H (75-99) mg/dL Calcium (8.4-10.2) mg/dL AST (17-59) U/L ALT (4-49) U/L Lactate Dehydrogenase (313-618) U/L Troponin I (0.000-0.034) ng/mL Total Protein (6.3-8.2) g/dL Albumin (3.5-5.0) g/dL Triglycerides (0.00-149.00) mg/dL Procalcitonin (0.02-0.09) ng/mL 08/31/21 08/31/21 08/31/21 Range/Units 20:00 20:07 22:56 WBC (3.8-10.6) k/uL RBC (4.30-5.90) m/uL Hgb (13.0-17.5) gm/dL Hct (39.0-53.0) % Neutrophils # (1.3-7.7) k/uL APTT 78.6 H 72.1 H (22.0-30.0) sec ABG pCO2 (35-45) mmHg ABG pO2 (83-108) mmHg ABG O2 Saturation (94-97) % Sodium (137-145) mmol/L Chloride (98-107) mmol/L Carbon Dioxide (22-30) mmol/L BUN (9-20) mg/dL Creatinine (0.66-1.25) mg/dL Glucose (74-99) mg/dL POC Glucose (mg/dL) (75-99) mg/dL Calcium (8.4-10.2) mg/dL AST (17-59) U/L ALT (4-49) U/L Lactate Dehydrogenase 9988 H (313-618) U/L Troponin I (0.000-0.034) ng/mL Total Protein (6.3-8.2) g/dL Albumin (3.5-5.0) g/dL Triglycerides (0.00-149.00) mg/dL Procalcitonin (0.02-0.09) ng/mL 08/31/21 08/31/21 09/01/21 Range/Units 22:58 23:15 02:00 WBC 17.8 H (3.8-10.6) k/uL RBC 3.94 L (4.30-5.90) m/uL Hgb 12.4 L (13.0-17.5) gm/dL Hct 36.1 L (39.0-53.0) % Neutrophils # (1.3-7.7) k/uL APTT 70.1 H (22.0-30.0) sec ABG pCO2 (35-45) mmHg ABG pO2 (83-108) mmHg ABG O2 Saturation (94-97) % Sodium (137-145) mmol/L Chloride (98-107) mmol/L Carbon Dioxide (22-30) mmol/L BUN (9-20) mg/dL Creatinine (0.66-1.25) mg/dL Glucose (74-99) mg/dL POC Glucose (mg/dL) 119 H (75-99) mg/dL Calcium (8.4-10.2) mg/dL AST (17-59) U/L ALT (4-49) U/L Lactate Dehydrogenase (313-618) U/L Troponin I (0.000-0.034) ng/mL Total Protein (6.3-8.2) g/dL Albumin (3.5-5.0) g/dL Triglycerides (0.00-149.00) mg/dL Procalcitonin (0.02-0.09) ng/mL 09/01/21 09/01/21 09/01/21 Range/Units 04:40 04:40 04:40 WBC 14.9 H (3.8-10.6) k/uL RBC 3.75 L (4.30-5.90) m/uL Hgb 11.9 L (13.0-17.5) gm/dL Hct 34.2 L (39.0-53.0) % Neutrophils # 11.6 H (1.3-7.7) k/uL APTT 73.9 H (22.0-30.0) sec ABG pCO2 (35-45) mmHg ABG pO2 (83-108) mmHg ABG O2 Saturation (94-97) % Sodium (137-145) mmol/L Chloride 112 H (98-107) mmol/L Carbon Dioxide 19 L (22-30) mmol/L BUN 29 H (9-20) mg/dL Creatinine (0.66-1.25) mg/dL Glucose 134 H (74-99) mg/dL POC Glucose (mg/dL) (75-99) mg/dL Calcium 8.3 L (8.4-10.2) mg/dL AST 821 H (17-59) U/L ALT 158 H (4-49) U/L Lactate Dehydrogenase 8638 H (313-618) U/L Troponin I (0.000-0.034) ng/mL Total Protein 5.1 L (6.3-8.2) g/dL Albumin 2.7 L (3.5-5.0) g/dL Triglycerides (0.00-149.00) mg/dL Procalcitonin (0.02-0.09) ng/mL 09/01/21 09/01/21 09/01/21 Range/Units 04:40 04:43 05:45 WBC (3.8-10.6) k/uL RBC (4.30-5.90) m/uL Hgb (13.0-17.5) gm/dL Hct (39.0-53.0) % Neutrophils # (1.3-7.7) k/uL APTT (22.0-30.0) sec ABG pCO2 33 L (35-45) mmHg ABG pO2 124 H (83-108) mmHg ABG O2 Saturation 98.3 H (94-97) % Sodium (137-145) mmol/L Chloride (98-107) mmol/L Carbon Dioxide (22-30) mmol/L BUN (9-20) mg/dL Creatinine (0.66-1.25) mg/dL Glucose (74-99) mg/dL POC Glucose (mg/dL) 126 H (75-99) mg/dL Calcium (8.4-10.2) mg/dL AST (17-59) U/L ALT (4-49) U/L Lactate Dehydrogenase (313-618) U/L Troponin I (0.000-0.034) ng/mL Total Protein (6.3-8.2) g/dL Albumin (3.5-5.0) g/dL Triglycerides (0.00-149.00) mg/dL Procalcitonin 1.95 H (0.02-0.09) ng/mL 09/01/21 09/01/21 09/01/21 Range/Units 07:34 07:35 11:20 WBC (3.8-10.6) k/uL RBC (4.30-5.90) m/uL Hgb (13.0-17.5) gm/dL Hct (39.0-53.0) % Neutrophils # (1.3-7.7) k/uL APTT 72.0 H (22.0-30.0) sec ABG pCO2 (35-45) mmHg ABG pO2 (83-108) mmHg ABG O2 Saturation (94-97) % Sodium (137-145) mmol/L Chloride (98-107) mmol/L Carbon Dioxide (22-30) mmol/L BUN (9-20) mg/dL Creatinine (0.66-1.25) mg/dL Glucose (74-99) mg/dL POC Glucose (mg/dL) 128 H 126 H (75-99) mg/dL Calcium (8.4-10.2) mg/dL AST (17-59) U/L ALT (4-49) U/L Lactate Dehydrogenase (313-618) U/L Troponin I (0.000-0.034) ng/mL Total Protein (6.3-8.2) g/dL Albumin (3.5-5.0) g/dL Triglycerides (0.00-149.00) mg/dL Procalcitonin (0.02-0.09) ng/mL Microbiology - Last 24 Hours (Table) 08/31/21 20:00 Gram Stain - Preliminary Sputum Sputum Culture - Preliminary Assessment and Plan (1) Cardiac arrest Current Visit: Yes Status: Acute Code(s): I46.9 - CARDIAC ARREST, CAUSE UNSP ECIFIED SNOMED Code(s): 673315847 (2) Ventricular fibrillation and flutter Current Visit: Yes Status: Acute Code(s): I49.01 - VENTRICULAR FIBRILLATION; I49.02 - VENTRICULAR FLUTTER SNOMED Code(s): 746058541 (3) Ventricular fibrillation Current Visit: Yes Status: Acute Code(s): I49.01 - VENTRICULAR FIBRILLATION SNOMED Code(s): 57276790 (4) STEMI (ST elevation myocardial infarction) Current Visit: Yes Status: Acute Code(s): I21.3 - ST ELEVATION (STEMI) MYOCARDIAL INFARCTION OF UNSP SITE SNOMED Code(s): 10577174 (5) Ischemic cardiomyopathy Current Visit: Yes Status: Acute Code(s): I25.5 - ISCHEMIC CARDIOMYOPATHY SNOMED Code(s): 146559108 (6) Cardiogenic shock Current Visit: Yes Status: Acute Code(s): R57.0 - CARDIOGENIC SHOCK SNOMED Code(s): 43280187 Plan: Overall this seemed to be some hemodynamic improvement. His kidney function remained stable pulmonary status is also stable. Patient is going to remain intubated with Impala in place until he has stent placement of the RCA tomorrow
[2021-09-01 17:06] LABS: Glucose,Whole Blood 146 mg/dL (75-99)
--- NOTE | 2021-09-01 17:13 | P.PCN ---
Date of Procedure: 09/01/21 Preoperative Diagnosis: Cardiogenic shock, acute STEMI Postoperative Diagnosis: Cardiogenic shock, acute STEMI Procedure(s) Performed: Insertion of an arterial line Anesthesia: local Surgeon: Uma Reinoso Estimated Blood Loss (ml): 0 Pathology: none sent Condition: critical Disposition: ICU Operative Findings: Indication: Hemodynamic monitoring. A time-out was completed verifying correct patient, procedure, site, positioning, and implant(s) or special equipment if applicable. Allens test was performed to ensure adequate perfusion. The patients left antecubital was prepped and draped in sterile fashion. 1% Lidocaine was used to anesthetize the area. An 18G Arrow arterial line was introduced into left brachial artery. The catheter was threaded over the guide wire and the needle was removed with appropriate pulsatile blood return. Blood loss was minimal. The catheter was then sutured in place to the skin and a sterile dressing applied. Perfusion to the extremity distal to the point of catheter insertion was checked and found to be adequate. The patient tolerated the procedure well and there were no complications.
--- NOTE | 2021-09-01 19:08 | PN ---
PROGRESS NOTE DATE OF SERVICE: 09/01/2021 This 46-year-old gentleman who was admitted with cardiac arrest and ventricular fibrillation had ST-elevation myocardial infarction. Patient had LAD stenting. The patient also had Impella device in place. The patient also has acute hypoxic respiratory failure. Patient is mechanically ventilated and intubated at this time. The patient is currently on mechanical ventilation, assist-control, 450 tidal volume, 40% FiO2 and 5 of PEEP and saturating 99%. The patient is being followed by Pulmonology and Cardiology closely. Platelet counts and coagulation parameters are being closely monitored at this time. The patient is sedated with propofol. The most recent chest x-ray, which was reviewed personally by me, showed minimally increased bronchovascular markings. No evidence of overt failure was noted. Past medical history reviewed. Review of systems could not be taken; the patient is mechanically ventilated and sedated. CURRENT MEDICATIONS: Reviewed. They include Maalox, aspirin, Lipitor, atropine, Rocephin, Peridex, heparin. Doses and other medications reviewed. PHYSICAL EXAMINATION: Patient is mechanically ventilated and sedated. Pulse is 123, blood pressure is 85/60, respiration 28, temperature 100.8, pulse ox 99% on 40%; mechanical vent settings are noted as above. HEENT: Conjunctivae normal. Oral mucosa moist. CARDIOVASCULAR: S1, S2 muffled. RESPIRATION: Breath sounds diminished at the bases. ABDOMEN: Soft. NERVOUS SYSTEM: Patient is mechanically ventilated and sedated. LABS: ABGs noted. Accu-Cheks 146. LDH is 6969. WBC 14.9, hemoglobin 11.9 and sodium is 138, potassium 3.4. Cultures are negative so far. ASSESSMENT: 1. Status post cardiac arrest and acute [id number] myocardial infarction, status post cardiac catheterization and LAD stenting. 2. Impella device in place. 3. Acute hypoxic respiratory failure secondary to above. 4. Acute cardiogenic shock. 5. Acute hyperglycemia. 6. Acute kidney injury and acute metabolic acidosis. 7. Fever. 8. Status post CPR for 5 minutes. 9. Increased white count. 10.Anemia, normocytic, of undetermined etiology. 11.Hyponatremia. 12.Elevated AST, ALT, possibly ischemic hepatitis. 13.Elevated LVH. 14.Troponin elevated up to 591. 15.Elevated procalcitonin. RECOMMENDATIONS AND DISCUSSION: I recommend to continue the current medications, continue symptomatic treatment. I recommend lipid level testing once the propofol is discontinued. Otherwise, I would also recommend a couple cultures and continue to monitor. Chest x-ray reviewed as mentioned earlier. Overall prognosis extremely guarded because of multiple complex medical issues. Further recommendations to follow. GUS / IJN: [id number] /
[2021-09-01 20:04] LABS: Glucose,Whole Blood 134 mg/dL (75-99)
[2021-09-01] MEDS: ATORVASTATIN 80 MG TAB PO SCH (20:13)
[2021-09-01] MEDS: HEPARIN SODIUM,PORCINE 12,500 UNIT in DEXTROSE 5% IN WATER 500 ML IV SCH ×2 (22:48)
[2021-09-01 23:40] LABS: Glucose,Whole Blood 115 mg/dL (75-99)
[2021-09-01] MEDS ORDERED: NOREPINEPHRIN 4 MG-0.9% NS PMX 4 MG/250 ML ML IV ONE (23:59)
[2021-09-02] MEDS ORDERED: DEXTROSE 5% IN WATER 100 ML with AMIODARONE 150 MG IV ONE ×2
[2021-09-02] MEDS: NOREPINEPHRINE 4 MG in SODIUM CHLORIDE 0.9% 250 ML IV SCH ×3 (00:30→20:00)
[2021-09-02] MEDS ORDERED: AMIODARONE IN DEXTROSE,ISO-OSM 150 MG/100 ML PLAST..BAG IV ONE (00:31)
[2021-09-02] MEDS ORDERED: AMIODARONE IN DEXTROSE,ISO-OSM 360 MG/200 ML PLAST..BAG IV ONE (00:31)
--- NOTE | 2021-09-02 00:58 | XR ---
EXAMINATION TYPE: XR chest 1V portable DATE OF EXAM: 09/02/2021 COMPARISON: 09/01/2021 HISTORY: Malfunction of the assist device TECHNIQUE: Single view FINDINGS: There is endotracheal tube 5 cm from the madhu. There is left ventricle assist device in t he left ventricle not changed in position. There is nasogastric tube in the stomach not changed. Ther e is no gross heart failure. Lungs are clear of infiltrate. There is no pulmonary consolidation. IMPRESSION: No heart failure or pulmonary consolidation. No change compared to yesterday.
[2021-09-02] MEDS: INSULIN ASPART (NovoLOG) 100 UNIT/ML VIAL SQ SCH ×6 (01:19→20:42)
[2021-09-02] MEDS: HEPARIN SOD,PORK IN 0.45% NACL 25,000 UNIT in 0.45% NACL 1 250ML.BAG IV SCH (03:20)
[2021-09-02 04:14] LABS: Glucose,Whole Blood 150 mg/dL (75-99)
[2021-09-02] MEDS ORDERED: EPINEPHrine 10 ML SYRINGE (0.1 MG/ML) ONE (04:26)
[2021-09-02] MEDS ORDERED: SODIUM BICARB 8.4% 50 ML SYR (1 MEQ/ML) ONE (04:26)
[2021-09-02] MEDS: HEPARIN SODIUM,PORCINE 12,500 UNIT in DEXTROSE 5% IN WATER 500 ML IV SCH ×2 (04:34)
[2021-09-02 04:38] LABS: ALT 67 U/L (4-49); AST 179 U/L (17-59); African American GFR (CKD) >90 (>60 ml/min/1.73 sqM); Alkaline Phosphatase 58 U/L (38-126); Anion Gap 1 mmol/L; Blood Urea Nitrogen 19 mg/dL (9-20); Carbon Dioxide 20 mmol/L (22-30); Chloride 113 mmol/L (98-107); Glucose 119 mg/dL (74-99); Magnesium 1.8 mg/dL (1.6-2.3); Non-African American GFR(CKD) >90 (>60 ml/min/1.73 sqM); Potassium 3.2 mmol/L (3.5-5.1); Sodium 134 mmol/L (137-145); Total Bilirubin 0.4 mg/dL (0.2-1.3); Total Protein 4.2 g/dL (6.3-8.2)
[2021-09-02 04:42] LABS: Calcium 6.1 mg/dL (8.4-10.2)
[2021-09-02 04:47] LABS: LDH 4117 U/L (313-618)
[2021-09-02] MEDS ORDERED: Potassium Replacement Protocol 1 EACH MISC MISCELLANE PRN (05:14)
[2021-09-02] MEDS: POTASSIUM BICARBONATE/CIT AC 20 MEQ TABLET.EFF NG-TUBE SCH ×2 (05:29→06:43)
[2021-09-02 05:46] LABS: ABG Base Excess -0.8 mmol/L; ABG HCO3 24 mmol/L (21-25); ABG Oxygen Saturation 99.6 % (94-97); ABG PCO2 36 mmHg (35-45); ABG PH 7.43 (7.35-7.45); ABG PO2 156 mmHg (83-108); ABG TCO2 25 mmol/L (19-24); Allen Test Performed? Yes
[2021-09-02] MEDS: AMIODARONE 450 MG in DEXTROSE 5% IN WATER 250 ML IV SCH ×4 (06:12→22:02)
[2021-09-02 06:32] LABS: ALT 82 U/L (4-49); AST 203 U/L (17-59); African American GFR (CKD) >90 (>60 ml/min/1.73 sqM); Albumin 2.5 g/dL (3.5-5.0); Alkaline Phosphatase 76 U/L (38-126); Anion Gap 0 mmol/L; Blood Urea Nitrogen 21 mg/dL (9-20); Calcium 7.3 mg/dL (8.4-10.2); Carbon Dioxide 25 mmol/L (22-30); Chloride 108 mmol/L (98-107); Glucose 138 mg/dL (74-99); Non-African American GFR(CKD) >90 (>60 ml/min/1.73 sqM); Potassium 3.8 mmol/L (3.5-5.1); Sodium 133 mmol/L (137-145); Total Bilirubin 0.6 mg/dL (0.2-1.3); Total Protein 5.1 g/dL (6.3-8.2)
[2021-09-02 07:11] LABS: Basophils # (A) 0.1 k/uL (0-0.2); Basophils % (A) 0 %; Eosinophils % (A) 0 %; HCT 23.7 % (39.0-53.0); Lymphocytes # (A) 3.5 k/uL (1.0-4.8); Lymphocytes % (A) 26 %; MCH 32.7 pg (25.0-35.0); MCHC 36.2 g/dL (31.0-37.0); MCV 90.4 fL (80.0-100.0); Mean Platelet Volume 8.3; Monocytes # (A) 0.6 k/uL (0-1.0); Monocytes % (A) 4 %; Neutrophils # (A) 9.5 k/uL (1.3-7.7); Neutrophils % (A) 69 %; Platelet Count 140 k/uL (150-450); Poikilocytosis Slight; RBC 2.62 m/uL (4.30-5.90); RDW 14.2 % (11.5-15.5); WBC 13.8 k/uL (3.8-10.6)
[2021-09-02 07:19] LABS: HGB 8.6 gm/dL (13.0-17.5)
[2021-09-02] MEDS ORDERED: LIDOCAINE 1% INJ 10MG/ML (20 ML MDV) ONE (07:26)
[2021-09-02] MEDS ORDERED: IV FLUID CONTINUATION 1,000 ML IV ONE (08:00)
[2021-09-02] MEDS ORDERED: HEPARIN SODIUM 1,000 UN/ML (10ML VL) ONE (08:04)
[2021-09-02 08:14] LABS: Basophils # (A) 0.1 k/uL (0-0.2); Basophils % (A) 0 %; Eosinophils # (A) 0.1 k/uL (0-0.7); Eosinophils % (A) 1 %; HCT 23.6 % (39.0-53.0); HGB 8.6 gm/dL (13.0-17.5); Hyperchromasia Slight; Lymphocytes % (A) 21 %; MCH 32.4 pg (25.0-35.0); MCHC 36.6 g/dL (31.0-37.0); MCV 88.5 fL (80.0-100.0); Mean Platelet Volume 8.7; Monocytes # (A) 0.6 k/uL (0-1.0); Monocytes % (A) 4 %; Neutrophils # (A) 10.2 k/uL (1.3-7.7); Neutrophils % (A) 73 %; Platelet Count 143 k/uL (150-450); Poikilocytosis Slight; RBC 2.66 m/uL (4.30-5.90); RDW 14.3 % (11.5-15.5)
--- NOTE | 2021-09-02 08:40 | P.PN ---
Subjective Progress Note Date: 09/02/21 Patient is a pleasant 46-year-old male with a history of collapsed lung and who called EMS secondary to chest pain. During transportation patient had a V. fib arrest and was intubated with approximately 5 minutes of downtime with CPR performed and defibrillation. Patient remained sedated on ventilator and he came to emergency department and was found to have anterior lateral ST elevation. Therefore recommendations were for emergency heart catheterization.eft heart catheterization, bilateral coronary angiography, Impella CP placement from right femoral approach, PCI of proximal LAD with a 3.5 x 15 mm Xience IVON, PTCA diagonal 2 with a 2.5 x 12 mm balloon, PCI mid LAD with overlapping 2.75 x 12 and 2.5 x 8mm Xience IVON, right femoral angiogram, left femoral and right SFA sheath placement with external left femoral to right SFA bypass placement was also given an empiric a device which is currently running at with his P9 with an output of 3.4 L per minute. She is currently in normal sinus rhythm. LV end-diastolic pressure was 39. The patient is currently on IV heparin. He is on no antiarrhythmics. His IV fluids running at 20 mL an hour in the urine output is normal but of 150 mL over the past 1 hour. He is on no pressors at this point in time. Most recent blood pressure is 110/96. He remains on a mechanical ventilator. He is sedated with propofol which is running at 30 mics are as per kilogram per minute. He is on assist control mode at the rate of 18, tidal volume of 450, FiO2 of 100% with a PEEP of 5. The blood gases from this morning is still pending. A chest x-ray is showing acute pulmonary edema. ET tube is in a good location. The patient has not followed device. The orogastric tube seems to be in a good location. No blood gases available yet. The patient has elevated blood sugar. There is also some mild leukocytosis, consider the possibility of an underlying aspiration. OG tube is in place and output is nonbloody. On 09/01/2021 I'm seeing this patient for a follow-up. The patient is still sedated on propofol which is running at 40 mcg/kg per minute. Remains intubated on a mechanical ventilator. He is on an assist-control mode at the rate of 18, tidal volume of 450, FiO2 40% with a PEEP of 5. Chest x-ray shows clearing of the previously noted pulmonary edema. The patient has been making excellent urine output and the patient has been diuresing well while being supported with in follow-up. The blood gases from today showed a pH of 7.43 with a pCO2 of 33 and pO2 of 124 and there is adequate oxygenation and ventilation at this point in time. Chest x-ray has very much normalized at this point in time. ET tube is in a good location. Orogastric tube is also in good location. In terms of his hemodynamics, the patient remains in sinus tachycardia at the rate of 120. His mean arterial pressure is 68 and this is augmented through Impella with a flow of 2.8 L and the patient is on a P5 support. Urine output has been in the order of 75 mL's an hour. Blood work from today shows a white cell count of 14.9 with a hemoglobin of 11.9. The platelet counts are at 183 which is stable compared to yesterday. Coagulation profile shows a PT of 73. The patient has hyper running through the device. He did have some bleeding at the site of insertion of the Impella and a FemoStop was applied to the area. His renal function is stable with a creatinine of 1.1 and this is improved compared to yesterday. BUN is at 29. Electrolytes are normal with a potassium level of 4.4. Troponin peaked at 591. He remains on aspirin. Remains on Effient. Remains nothing by mouth. OG tube is in place. 10 2020, the patient is being seen for a follow-up in the intensive care unit. As mentioned earlier, he is a 46-year-old male patient was supposed STEMI, post emergent cardiac catheterization and stenting of the LAD, post insertion of an Impella device and cardiogenic shock. Over the past few days, the patient was kept on Impella for cardiac augmentation and the patient was on a P5 augmentation with a flow of 2.9 L per minute. He was doing well and he was hemodynamically stable and he was not requiring any pressors and his acute pulmonary edema was also improving. Overnight, the patient had a bout of SVT with rapid ventricular response and he became quite hypotensive. He received every cardioversion 2 and he recovered and is back into normal sinus rhythm. Subsequently, he had to be going on pressors and the patient is on norepinephrine infusion at 4 g per minute and amiodarone 0.5 mg per minute per protocol. Furthermore, the patient was taken to the [employer] [facility] and consideration of removing the Impella device today. Meanwhile, the patient was kept on a mechanical ventilator. This morning he was an assist-control mode at a rate of 18, with a tidal volume of 450, FiO2 of 40% with a PEEP of 5. Blood gases from this morning showed a pH of 7.4 with a pCO2 of 36 and pO2 156. Chest x-ray was clear. He was in a good location. Urine output was in order of 50-60 mL an hour. His hemoglobin had dropped down to 8.8 and 8.6. No evidence of any hematuria. No evidence of any bleeding from his Impella site. The patient up this morning. Also, he was retrogradely being perfused in his right lower extremity. He has still diminished pulses present in the lower extremities bilaterally. White cell count is at 14, platelet count is down to 143, his creatinine is down to 0.8 with a BUN of 21 my normal electrolytes. He is afebrile. No other significant issues overnight. He has an orogastric tube in place. 2 feeding was started yesterday and he was receiving vital AF at the rate of 10 mL an hour. He remains on aspirin. He remains on Effient. On today's evaluation and prior to him going to the Pulmonary arterial pressure was 65. Objective - Vital Signs Vital signs: Vital Signs Temp 99.3 F 09/02/21 04:00 Pulse 100 09/02/21 07:15 Resp 22 09/02/21 07:15 BP 108/60 08/31/21 02:53 Pulse Ox 100 09/02/21 07:30 Intake & Output 09/01/21 09/02/21 09/02/21 18:59 06:59 18:59 Intake Total 968.326 6073.872 62 Output Total 810 640 60 Balance -116.343 408.872 2 Weight 81.5 kg 81.2 kg Intake: IV 312 312 52 Normal Saline 240 240 40 Pressure Bag 72 72 12 Intake, IV Titration 321.657 536.872 Amount Heparin Sod,Pork in 0.45% 121.657 110.18 NaCl 25,000 unit In 0.45 % NaCl 1 250ml.bag @ 12 UNITS/KG/HR 10.164 mls/hr IV .Q24H ROSY Rx#: [id number] Norepinephrine 4 mg In 131.813 Sodium Chloride 0.9% 250 ml @ 0.05 MCG/KG/MIN 15. 526 mls/hr IV .[id number] ROSY Rx#:[id number] propofoL 1,000 mg In 200 294.879 Empty Bag 1 bag @ Titrate IV .Q0M ORSY Rx#: [id number] Tube Feeding 110 10 Other 60 90 Output: Gastric Drainage 100 Urine 710 640 60 Other: Voiding Method Indwelling Catheter Indwelling Catheter ABP, PAP, CO, CI - Last Documented Arterial Blood Pressure 84/62 - Exam As the patient is calm comfortable sedated intubated on a mechanical ventilator. Orotracheal and orogastric tube are both in place. Head exam was generally normal. There was no scleral icterus or corneal arcus. Mucous membranes were moist. Neck was supple and without jugular venous distension, thyromegaly, or carotid bruits. Carotids were easily palpable bilaterally. There was no adenopathy. Lungs sounds are diminished and the patient has some rales in the lung bases bilaterally Cardiac exam revealed the PMI to be normally situated and sized. The rhythm was regular and no extrasystoles were noted during several minutes of auscultation. The first and second heart sounds were normal and physiologic splitting of the second heart sound was noted. There were no murmurs, rubs, clicks, or gallops. Abdominal exam revealed normal bowel sounds. The abdomen was soft, non-tender, and without masses, organomegaly, or appreciable enlargement of the abdominal aorta. Extremities revealed diminished pulses and on today's evaluation, there is palpable pulses in the feet bilaterally in the upper extremities and the pulsation has improved. The patient has a FemoStop in the right groin area. No hematoma. No significant bleeding. The feet bilaterally are warm. The patient has an intolerance advice in his right groin. Neurologically, the patient is sedated with propofol. Pupils are equal and reactive to light. No agitation. No seizure activity has been noted. - Labs CBC & Chem 7: 09/02/21 08:00 09/02/21 06:08 Labs: Abnormal Lab Results - Last 24 Hours (Table) 09/01/21 09/01/21 09/01/21 Range/Units 04:40 07:35 11:20 WBC (3.8-10.6) k/uL RBC (4.30-5.90) m/uL Hgb (13.0-17.5) gm/dL Hct (39.0-53.0) % Plt Count (150-450) k/uL Neutrophils # (1.3-7.7) k/uL APTT 72.0 H (22.0-30.0) sec Fibrinogen (200-500) mg/dL ABG pO2 (83-108) mmHg ABG Total CO2 (19-24) mmol/L ABG O2 Saturation (94-97) % Sodium (137-145) mmol/L Potassium (3.5-5.1) mmol/L Chloride (98-107) mmol/L Carbon Dioxide (22-30) mmol/L BUN (9-20) mg/dL Glucose (74-99) mg/dL POC Glucose (mg/dL) 126 H (75-99) mg/dL Calcium (8.4-10.2) mg/dL Ionized Calcium Sherry (4.5-5.3) mg/dL AST (17-59) U/L ALT (4-49) U/L Lactate Dehydrogenase (313-618) U/L Total Protein (6.3-8.2) g/dL Albumin (3.5-5.0) g/dL Procalcitonin 1.95 H (0.02-0.09) ng/mL 09/01/21 09/01/21 09/01/21 Range/Units 14:55 17:05 20:02 WBC (3.8-10.6) k/uL RBC (4.30-5.90) m/uL Hgb (13.0-17.5) gm/dL Hct (39.0-53.0) % Plt Count (150-450) k/uL Neutrophils # (1.3-7.7) k/uL APTT (22.0-30.0) sec Fibrinogen (200-500) mg/dL ABG pO2 (83-108) mmHg ABG Total CO2 (19-24) mmol/L ABG O2 Saturation (94-97) % Sodium (137-145) mmol/L Potassium (3.5-5.1) mmol/L Chloride (98-107) mmol/L Carbon Dioxide (22-30) mmol/L BUN (9-20) mg/dL Glucose (74-99) mg/dL POC Glucose (mg/dL) 146 H 134 H (75-99) mg/dL Calcium (8.4-10.2) mg/dL Ionized Calcium Sherry (4.5-5.3) mg/dL AST (17-59) U/L ALT (4-49) U/L Lactate Dehydrogenase 6969 H (313-618) U/L Total Protein (6.3-8.2) g/dL Albumin (3.5-5.0) g/dL Procalcitonin (0.02-0.09) ng/mL 09/01/21 09/01/21 09/01/21 Range/Units 22:16 22:16 23:39 WBC (3.8-10.6) k/uL RBC (4.30-5.90) m/uL Hgb (13.0-17.5) gm/dL Hct (39.0-53.0) % Plt Count (150-450) k/uL Neutrophils # (1.3-7.7) k/uL APTT (22.0-30.0) sec Fibrinogen 598 H (200-500) mg/dL ABG pO2 (83-108) mmHg ABG Total CO2 (19-24) mmol/L ABG O2 Saturation (94-97) % Sodium (137-145) mmol/L Potassium (3.5-5.1) mmol/L Chloride (98-107) mmol/L Carbon Dioxide (22-30) mmol/L BUN (9-20) mg/dL Glucose (74-99) mg/dL POC Glucose (mg/dL) 115 H (75-99) mg/dL Calcium (8.4-10.2) mg/dL Ionized Calcium Sherry (4.5-5.3) mg/dL AST (17-59) U/L ALT (4-49) U/L Lactate Dehydrogenase 5455 H (313-618) U/L Total Protein (6.3-8.2) g/dL Albumin (3.5-5.0) g/dL Procalcitonin (0.02-0.09) ng/mL 09/02/21 09/02/21 09/02/21 Range/Units 04:05 04:11 04:50 WBC (3.8-10.6) k/uL RBC (4.30-5.90) m/uL Hgb (13.0-17.5) gm/dL Hct (39.0-53.0) % Plt Count (150-450) k/uL Neutrophils # (1.3-7.7) k/uL APTT (22.0-30.0) sec Fibrinogen (200-500) mg/dL ABG pO2 (83-108) mmHg ABG Total CO2 (19-24) mmol/L ABG O2 Saturation (94-97) % Sodium 134 L (137-145) mmol/L Potassium 3.2 L (3.5-5.1) mmol/L Chloride 113 H (98-107) mmol/L Carbon Dioxide 20 L (22-30) mmol/L BUN (9-20) mg/dL Glucose 119 H (74-99) mg/dL POC Glucose (mg/dL) 150 H (75-99) mg/dL Calcium 6.1 L* (8.4-10.2) mg/dL Ionized Calcium Sherry 4.3 L (4.5-5.3) mg/dL AST 179 H (17-59) U/L ALT 67 H (4-49) U/L Lactate Dehydrogenase 4117 H (313-618) U/L Total Protein 4.2 L (6.3-8.2) g/dL Albumin 2.0 L (3.5-5.0) g/dL Procalcitonin (0.02-0.09) ng/mL 09/02/21 09/02/21 09/02/21 Range/Units 05:40 06:08 06:08 WBC 13.8 H (3.8-10.6) k/uL RBC 2.62 L (4.30-5.90) m/uL Hgb 8.6 L D (13.0-17.5) gm/dL Hct 23.7 L (39.0-53.0) % Plt Count 140 L (150-450) k/uL Neutrophils # 9.5 H (1.3-7.7) k/uL APTT (22.0-30.0) sec Fibrinogen (200-500) mg/dL ABG pO2 156 H (83-108) mmHg ABG Total CO2 25 H (19-24) mmol/L ABG O2 Saturation 99.6 H (94-97) % Sodium 133 L (137-145) mmol/L Potassium (3.5-5.1) mmol/L Chloride 108 H (98-107) mmol/L Carbon Dioxide (22-30) mmol/L BUN 21 H (9-20) mg/dL Glucose 138 H (74-99) mg/dL POC Glucose (mg/dL) (75-99) mg/dL Calcium 7.3 L (8.4-10.2) mg/dL Ionized Calcium Sherry (4.5-5.3) mg/dL AST 203 H (17-59) U/L ALT 82 H (4-49) U/L Lactate Dehydrogenase (313-618) U/L Total Protein 5.1 L (6.3-8.2) g/dL Albumin 2.5 L (3.5-5.0) g/dL Procalcitonin (0.02-0.09) ng/mL 09/02/21 Range/Units 08:00 WBC 14.0 H (3.8-10.6) k/uL RBC 2.66 L (4.30-5.90) m/uL Hgb 8.6 L (13.0-17.5) gm/dL Hct 23.6 L (39.0-53.0) % Plt Count 143 L (150-450) k/uL Neutrophils # 10.2 H (1.3-7.7) k/uL APTT (22.0-30.0) sec Fibrinogen (200-500) mg/dL ABG pO2 (83-108) mmHg ABG Total CO2 (19-24) mmol/L ABG O2 Saturation (94-97) % Sodium (137-145) mmol/L Potassium (3.5-5.1) mmol/L Chloride (98-107) mmol/L Carbon Dioxide (22-30) mmol/L BUN (9-20) mg/dL Glucose (74-99) mg/dL POC Glucose (mg/dL) (75-99) mg/dL Calcium (8.4-10.2) mg/dL Ionized Calcium Sherry (4.5-5.3) mg/dL AST (17-59) U/L ALT (4-49) U/L Lactate Dehydrogenase (313-618) U/L Total Protein (6.3-8.2) g/dL Albumin (3.5-5.0) g/dL Procalcitonin (0.02-0.09) ng/mL Microbiology - Last 24 Hours (Table) 09/01/21 18:52 Urine Culture - Preliminary Urine,Catheterized 08/31/21 20:00 Gram Stain - Preliminary Sputum Sputum Culture - Preliminary Assessment and Plan Plan: [address] segment elevation myocardial infarction with secondary V. fib cardiac arrest and a downtime of around 5 minutes during which the patient received CPR. The patient was taken to catheterization and the patient was given an Impella device through the right femoral artery and the patient was given 3 stents in his LAD. Currently on a combination of aspirin and Effient and IV heparin. Limited stable. The patient's mean arterial pressure is 65 at this point in time. The patient is being augmented with a 2.9 L per minute cardiac output fluid in [place] device. He is on a P5 support at this point in time. She has left ventricular end-diastolic pressure was 6 from yesterday. The patient was kept on the same Impella support overnight and the patient was taken to the [employer] in consideration of removal of the catheter. 2 acute hypoxic respiratory failure secondary to above currently intubated on mechanical ventilator 3 acute pulmonary edema secondary to acute [place] and cardiac arrest. The patient left ventricular end-diastolic pressure was elevated at 39. Consider cardiogenic shock post [place]/cardiac arrest. Note that the chest x-ray was recovered and the acute pulmonary edema is also recovered. The patient on IV Rocephin for any potential aspiration. Chest x-ray however is clear. 4 acute cardiogenic shock, secondary to above 5 acute hyperglycemia secondary to above 6 diminished pulses in all 4 extremities, positive pain by Doppler signal and the patient has an Impella for hemodynamic support. 7 acute kidney injury , renal function is normalized 8 acute anion gap metabolic acidosis secondary to above, consider underlying lactic acidosis secondary to arrest, recovered 9 V. fib cardiac arrest secondary to above 10 acute leukocytosis reactive versus infectious, improving 11 abnormal LFTs, improving 12 SVT, post cardioversion currently on amiodarone drip per protocol 13 hypotension secondary to advanced cardiomyopathy with subsequent SVT. Currently on norepinephrine infusion at 4 g per minute. Is being used for hemodynamic support in combination with Impella Plan Continue ventilator support. Continue hemodynamic support and the patient has ImPella device with a flow of 2.9 L per minute (P5) was taken to the Left for further monitoring of his cardiac output and in consultation for Impella removal Continue aspirin and Effient Continue IV heparin Patient chest x-ray shows recovering of the acute pulmonary edema. Monitor renal function, renal function is normalized Start the patient also has been insulin coverage for blood sugar control Continue IV Rocephin as an empiric antibiotic coverage, the patient is afebrile Start enteral feeding for nutritional support , the patient is on vital high protein Lactic acid level improving Monitor hematologic profile urine output , hemoglobin stable at 8.6 Keep the patient sedated for now We'll continue to follow make further recommendations. The plan is to keep Impella device in for another 24 hours. As such, the patient will be kept intubated on a mechanical ventilator for another 24 hours. We'll discuss the case with cardiology after the patient arrived from the Upper decide if we can proceed with further weaning and this largely depends on his hemodynamic status. Note that he did have about hypotension after being into SVT and currently is on a combination of amiodarone and This is a critically care evaluation that was done and more than 30 minutes. Time with Patient: Greater than 30
[2021-09-02] MEDS ORDERED: AMIODARONE 360 MG in DEXTROSE 5% IN WATER 200 ML IV ONE ×4 (09:22)
[2021-09-02] MEDS ORDERED: IOPAMIDOL-370 125ML BTL INJ ONE (09:29)
[2021-09-02 09:37] LABS: O2 Sat Blood Gas 58.3 %
[2021-09-02 09:39] LABS: O2 Sat Blood Gas 99.8 %
[2021-09-02 11:18] LABS: Glucose,Whole Blood 185 mg/dL (75-99)
[2021-09-02 13:17] LABS: Glucose,Whole Blood 190 mg/dL (75-99)
[2021-09-02 13:19] LABS: Glucose,Whole Blood 187 mg/dL (75-99)
[2021-09-02 13:28] LABS: HCT 22.1 % (39.0-53.0); HGB 7.9 gm/dL (13.0-17.5); MCH 31.9 pg (25.0-35.0); MCHC 35.6 g/dL (31.0-37.0); MCV 89.7 fL (80.0-100.0); Mean Platelet Volume 9.2; Platelet Count 158 k/uL (150-450); Poikilocytosis Slight; RBC 2.46 m/uL (4.30-5.90); RDW 14.6 % (11.5-15.5); WBC 16.8 k/uL (3.8-10.6)
[2021-09-02] MEDS: MILRINONE-D5W PMX 20 MG in DEXTROSE/WATER 1 100ML.BAG IV SCH ×2 (13:34→20:03)
--- NOTE | 2021-09-02 13:42 | P.CARDCATH ---
Description of Procedure: PROCEDURES PERFORMED: Right heart catheterization, bilateral coronary angiography, attempted wiring/PCI of RCA ANALYTICAL RESEARCH CHEMIST unsuccessful, removal of Impella and exchange for 14 Fr sheath, defibrillation of VT x 5 INDICATION: Cardiogenic shock, coronary artery disease, status post anterior STEMI HISTORY: Patient is a pleasant 46-year-old male who presented with chest pain and had V. fib arrest in EMS and underwent defibrillation and intubation. Patient was found to have anterior lateral ST elevation and underwent heart catheterization with PCI of LAD and placement of Impella CP device. He was noted to have no flow around the right femoral sheath and therefore a left femoral to right SFA bypass was made. He has been sustained on P5 setting with some hemolysis noted initially on P6. He did have an episode of wide complex tachycardia last night consistent with VT status post defibrillation. His blood pressures of been borderline and has intermittently needed norepinephrine. There was a decrease in hemoglobin noted today with concern of possible hemolysis. He has been diureses with good urine output and stable creatinine. Secondary to hemolysis, drop in hemoglobin and poor flow in the right leg the goal was to wean and remove Impella if able as well as attempt PCI of ANALYTICAL RESEARCH CHEMIST RCA however there were [id number] collaterals noted. Therefore he was brought to the catheterization lab for attempted PCI as well as removal of Impella. PROCEDURE: After the risks, benefits and alternatives of the above mentioned procedure explained in detail, informed consent was obtained. Patient was taken to the catheterization lab and prepped and draped in usual fashion. A 6-Nauruan sheath had already been placed in the left femoral artery previously and was used for angiography. A 6-Nauruan AR to guide was used to engage the RCA. The RCA had been noted to be small caliber with a somewhat superior takeoff and therefore deep engagement was attempted to be avoided. The RCA was attempted to be wired with initially a 0.014 whisper wire and then a 0.014 Fielder XT in a microcatheter. There did appear to be some progress with wire appearing to move freely in the mid RCA however the microcatheter was unable to be advanced despite the addition of a guide liner. We attempted to provide better support by advancing the guideliner by inflating the balloon to low atmospheres in the proximal to mid RCA and advancing the guideliner at the same time. This did supply mild improvement in support however did appear to have a small dissection proximally. The microcatheter was unable to be advanced more distally. Angiography showed that the 0.014 Fielder XT did not appear to be in the distal vessel and appeared to be in a side branch and therefore continued attempted antegrade PCI was aborted. The decision was then made to attempt weaning of the Impella which was performed with dropping P5 down to P2. Shortly after this patient had 4 runs of recurrent VT requiring defibrillation. This was felt possibly related to increased ischemia however his blood pressure been fairly stable versus increased irritability with repositioning of the Impella. The decision was made to perform right heart catheterization. An 8-Nauruan sheath was in place in the right IJ. A 8-Nauruan [place]-Russel catheter was inserted into the right atrium, right ventricle, pulmonary artery, pulmonary Wedge pressure and measurements were obtained with oxygen saturations for Romaine cardiac output as well as thermodilution performed. With crossing the balloon through the right ventricle patient had recurrent episodes of VT as well as engagement in the wedge position which appeared to be related to irritability from contact with the right ventricle. The decision was made to pull the Impella CP device and this was weaned and then pulled with exchange for 14-Nauruan Dequincy sheath in case patient decompensated and needed support placed again. Repeat thermodilution was performed with average cardiac index of 2.07 L/m/m. The 14-Nauruan sheath was sutured in place with the goal of removing the sheath if patient remains stable and hopeful for pos sible small increase a cardiac output if patient was extubated. Due to excitability and irritability with the Sacramento-Russel catheter in the Sacramento-Russel catheter was removed and the 8-Nauruan sheath was removed with pressure held and hemostasis achieved. Patient was transported back to the ICU. Conscious Sedation: Patient was monitored under the direct supervision of vision of myself for conscious sedation using Versed and fentanyl for a total duration of 120 minutes HEMODYNAMICS: Aorta: 87/58 RA: 11 RV: 35/8 PA: 36/17, mean 25 PCWP: 22 Left brachial A-line oxygen sat: 100% on ventilator at 100% FiO2 RA oxygen sat 61% PA oxygen sat 50% Cardiac output Romaine: 6.77 L/m (on Impella P2) (hemoglobin 7.3) Cardiac index Romaine: 3.43 L/m/m Cardiac output thermodilution: 4.29 L/m/m (on Impella P2) Cardiac index thermodilution: 2.17 L/m/m Cardiac index thermodilution: 2.07 L/m/m (off Impella) SELECTIVE CORONARY ARTERIOGRAPHY: LEFT MAIN: The left main is a large caliber vessel which bifurcates into the LAD and circumflex. There is no significant stenosis. LEFT ANTERIOR DESCENDING CORONARY ARTERY: LAD is a large caliber vessel which wraps around to the apex. There is a patent LAD stent which is patent and otherwise only mild luminal irregularities. There are left to right collaterals. LEFT CIRCUMFLEX CORONARY ARTERY: Left circumflex is a moderate caliber vessel without significant stenosis. RIGHT CORONARY ARTERY: The right coronary artery is a small caliber vessel which gives off a PDA and PLV branch and is the dominant vessel. There is a long 100% proximal to mid RCA stenosis. FINAL IMPRESSION: 1. CAD as described above with patent LAD stent and 100% RCA stenosis. 2. Unsuccessful wiring/PCI of RCA ANALYTICAL RESEARCH CHEMIST 3. Cardiogenic shock with decreased cardiac output 4. Mildly elevated left and right sided pressures 5. Decreasing hemoglobin levels PLAN: 1. Aggressive risk factor modification per most recent ACC/AHA guidelines. 2. Recommend attempted extubation and monitor if cardiac output improves, if he is able to stabilize. Recommend continued vasopressors and inotropes as needed. 3. Ideally avoid placing ventricular assist device unless needed given prior hemolysis and decrease in hemoglobin. 4. Check repeat hemoglobin, monitor closely. No significant bleeding noted from arterial sites. 5. Monitor for neurologic status, monitor for hopeful recovery.
[2021-09-02 14:07] LABS: ABG Base Excess -9.7 mmol/L; ABG HCO3 14 mmol/L (21-25); ABG Oxygen Saturation 95.1 % (94-97); ABG PCO2 20 mmHg (35-45); ABG PH 7.46 (7.35-7.45); ABG PO2 66 mmHg (83-108); ABG TCO2 15 mmol/L (19-24)
[2021-09-02 14:08] LABS: Allen Test Performed? no
[2021-09-02] MEDS ORDERED: VANCOMYCIN IV PER PHARMACY 1 EACH MISC MISCELLANE PRN (14:23)
--- NOTE | 2021-09-02 14:29 | XR ---
EXAMINATION TYPE: XR chest 1V portable DATE OF EXAM: 09/02/2021 COMPARISON: Chest x-ray 09/02/2021 earlier time HISTORY: Short of breath TECHNIQUE: Single frontal view of the chest is obtained. FINDINGS: There is been interval extubation. NG tube has been removed. Bilateral patchy densities ar e present within the lungs. Interstitium mildly increased. Cardiac mediastinal silhouette is stable. There is no evident pneumothorax or pleural effusion. ML has been removed. IMPRESSION: Correlate for pneumonia or interstitial edema. Interval extubation.
[2021-09-02] MEDS: ASPIRIN 81 MG PO SCH (14:41)
[2021-09-02] MEDS: PRASUGREL 10 MG TAB PO SCH (14:41)
[2021-09-02] MEDS: PANTOPRAZOLE 40 MG/10 ML VIAL IVP SCH (14:43)
[2021-09-02] MEDS: CHLORHEXIDINE GLUCONATE 15 ML CUP MUCOUS MEM SCH ×2 (15:20→22:06)
[2021-09-02] MEDS: VANCOMYCIN 1,500 MG in SODIUM CHLORIDE 0.9% 250 ML IVPB SCH ×2 (15:21→23:38)
[2021-09-02 15:41] LABS: INR 0.9 (<1.2); Prothrombin Time 9.9 sec (9.0-12.0)
[2021-09-02 15:56] LABS: ABG Base Excess -19.6 mmol/L; ABG Oxygen Saturation 90.3 % (94-97); ABG PH 7.26 (7.35-7.45); ABG PO2 64 mmHg (83-108); ABG TCO2 8 mmol/L (19-24)
[2021-09-02 15:57] LABS: ABG PCO2 16 mmHg (35-45)
[2021-09-02 15:58] LABS: ABG HCO3 7 mmol/L (21-25); Allen Test Performed? no
[2021-09-02] MEDS ORDERED: IV FLUID CONTINUATION 500 ML IV ONE (16:30)
[2021-09-02] MEDS ORDERED: HEPARIN SODIUM 1,000 UN/ML (10ML VL) IV ONE (16:50)
[2021-09-02] MEDS ORDERED: HEPARIN SODIUM,PORCINE 30 ML 30 ML ONE (16:57)
--- NOTE | 2021-09-02 17:01 | P.CARDCATH ---
Description of Procedure: PROCEDURES PERFORMED: Placement of Impella CP device, code blue INDICATION: Cardiogenic shock HISTORY: HISTORY: Patient is a pleasant 46-year-old male who presented with chest pain and had V. fib arrest in EMS and underwent defibrillation and intubation. Patient was found to have anterior lateral ST elevation and underwent heart catheterization with PCI of LAD and placement of Impella CP device. He was noted to have no flow around the right femoral sheath and therefore a left femoral to right SFA bypass was made. He has been sustained on P5 setting with some hemolysis noted initially on P6. He did have an episode of wide complex tachycardia last night consistent with VT status post defibrillation. His blood pressures of been borderline and has intermittently needed norepinephrine. There was a decrease in hemoglobin noted today with concern of possible hemolysis. He has been diureses with good urine output and stable creatinine. 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 He had episodes of VT with adjustments of the Impella and placement of a Welda Russel catheter earlier and therefore felt to be best to remove the Welda-Russel catheter as well as the Impella. Patient was extubated however appeared to worsen requiring more vasopressors as well as inotropes with drop in blood pressure. Unfortunately patient was not following commands appropriately and felt possibly related to hypotension with mean arterial pressure in the 50s. Secondary to patient appearing to worsen as well as increased lactic acidosis and worsening shock, the decision was made to place Impella CP back. Long discussion with mother regarding risks and benefits as well as prognosis. Mother wanted full care. PROCEDURE: After the risks, benefits and alternatives of the above mentioned procedure explained in detail, informed consent was obtained. Patient was taken to the catheterization lab and prepped and draped in usual fashion. Patient already had a 14-Namibian Henry right femoral sheath in place and this was exchanged for a 14-Namibian Impella sheath. Next a 6-Namibian pigtail catheter was advanced in the left ventricle. Unfortunately patient desaturated with asystole and loss of pulses and CODE BLUE was initiated with CPR performed for 6 minutes. The pigtail catheter was exchanged for a Impella CP over a 0.018 wire. This was turned on and patient did have ROSC. Patient was intubated during code. The sheath and Impella were sutured in place. Patient continued to be on vasopressors with map of approximately 58 to low 60s. Conscious Sedation: Patient was monitored under the direct supervision of vision of myself for 50 minutes however conscious sedation was avoided secondary to hemodynamics. FINAL IMPRESSION: 1. Cardiogenic shock status post replacement of Impella CP through right femoral access 2. Status post CODE BLUE with ROSC PLAN: Continue supportive care with Impella CP and vasopressors, inotropes as needed. Prognosis guarded.
[2021-09-02] MEDS ORDERED: .fentaNYL (PF) 50 MCG/ML 2 ML AMP ONE (17:07)
[2021-09-02] MEDS ORDERED: EPINEPHrine 4 MG in DEXTROSE 5% IN WATER 250 ML IV STA ×2 (17:25)
[2021-09-02] MEDS: NOREPINEPHRINE 8 MG in SODIUM CHLORIDE 0.9% 250 ML IV SCH ×3 (17:30→23:38)
[2021-09-02] MEDS ORDERED: SODIUM BICARB 8.4% 50 ML SYR (1 MEQ/ML) IV ONE (17:30)
[2021-09-02] MEDS ORDERED: .fentaNYL (PF) 50 MCG/ML 2 ML AMP IV ONE (17:40)
[2021-09-02 18:18] LABS: ABG Base Excess -18.6 mmol/L; ABG HCO3 11 mmol/L (21-25); ABG Oxygen Saturation 99.4 % (94-97); ABG PCO2 32 mmHg (35-45); ABG PO2 177 mmHg (83-108); ABG TCO2 12 mmol/L (19-24)
[2021-09-02 18:19] LABS: ABG PH 7.13 (7.35-7.45); Allen Test Performed? no
[2021-09-02 18:22] LABS: Glucose,Whole Blood 154 mg/dL (75-99)
[2021-09-02 18:39] VITALS: BP 76/45
--- NOTE | 2021-09-02 19:11 | XR ---
EXAMINATION TYPE: XR chest 1V portable DATE OF EXAM: 09/02/2021 COMPARISON: Today HISTORY: Short of breath TECHNIQUE: Single view FINDINGS: There is endotracheal tube 4.5 cm from the madhu. There is some mild pulmonary interstitia l edema. Heart size is normal. There is left ventricle assist device noted in the left ventricle. The re is no pleural effusion. IMPRESSION: There is some mild pulmonary edema that could be acute heart failure and is not significa ntly different than exam 4 hours ago.
[2021-09-02] MEDS ORDERED: SODIUM CHLORIDE 0.9% 150 ML with VASOPRESSIN 60 UNIT IV SCH ×2 (20:00)
[2021-09-02 20:06] LABS: Albumin 2.1 g/dL (3.5-5.0); Potassium 3.8 mmol/L (3.5-5.1); Total Bilirubin 1.1 mg/dL (0.2-1.3); Total Protein 4.2 g/dL (6.3-8.2)
[2021-09-02] MEDS: EPINEPHrine 16 MG in DEXTROSE 5% IN WATER 250 ML IV SCH ×4 (20:16→22:19)
[2021-09-02 20:32] LABS: Calcium 6.3 mg/dL (8.4-10.2)
[2021-09-02 20:40] LABS: Glucose,Whole Blood 239 mg/dL (75-99)
--- NOTE | 2021-09-02 20:46 | PN ---
PROGRESS NOTE DATE OF SERVICE: 09/02/2021. This 46-year-old gentleman who was admitted with cardiac arrest also had significant coronary artery disease. The patient had acute ST-T Misha elevation myocardial infarction. The patient had LAD stenting. The patient also had features of acute respiratory failure and cardiogenic shock. The patient is on Impella device which has been removed today. The patient is slightly waking up and weaning parameters also have been done at this time. The patient has some wheezing in the chest, multiple consultants are following the patient closely. PAST MEDICAL HISTORY: Reviewed. Review of systems could not be taken. CURRENT MEDICATIONS: Reviewed and include: Amiodarone, Lipitor, Rocephin, epinephrine. PHYSICAL EXAMINATION: Patient is alert, oriented x3. Pulse is 115, blood pressure is 76/45, respiration 30, temperature 98.4, pulse ox is 89 percent on mechanical ventilation. HEENT: Conjunctivae normal. Neck: No JVD. Cardiovascular: S1, S2 muffled. Respiratory: Breath sounds diminished at the bases. A few scattered rhonchi and crackles. Abdomen: Soft, nontender. Legs: No edema. No swelling. Nervous system: Diffusely weak. LABS: WBC 16.8, hemoglobin 7.9, and the fibrinogen is 538. The patient has significant acidosis. pH is 7.18. The procalcitonin is 1.95. The sputum culture is growing presumptive Staph aureus. ASSESSMENT: 1. Status post cardiac arrest and acute ST-segment elevation myocardial infarction status post cardiac catheterization and LAD stenting. 2. Impella device status post. 3. Cardiogenic shock. 4. Acute hypoxic respiratory failure secondary to above. 5. Staph aureus from the sputum. 6. Acute hyperglycemia. 7. Acute kidney injury and acute metabolic acidosis. 8. Fever. 9. Status post CPR for 5 minutes. 10.Increased WBC. 11.Anemia, normocytic, undetermined etiology. 12.Hyponatremia. 13.Elevated AST/ALT with possibly ischemic hepatitis. 14.Elevated troponin up to 59.1. 15.Elevated procalcitonin. RECOMMENDATIONS AND DISCUSSION: I recommend to continue current medication, continue symptomatic treatment. Otherwise, the chest x-ray showed significant changes of CHF. The patient underwent emergency cardiac cath. The Impella has been replaced because the patient had ventricular tachycardia. The prognosis guarded because of multiple complex medical issues. Follow up closely with multiple consultants. MMODL / IJN: [id number] /
[2021-09-02] MEDS: ATORVASTATIN 80 MG TAB PO SCH (22:02)
[2021-09-02 23:21] LABS: HGB 7.5 gm/dL (13.0-17.5); MCH 32.6 pg (25.0-35.0); Mean Platelet Volume 11.7; Platelet Count 134 k/uL (150-450); Poikilocytosis Slight; RBC 2.29 m/uL (4.30-5.90); RDW 15.1 % (11.5-15.5); WBC 27.4 k/uL (3.8-10.6)
[2021-09-02 23:26] LABS: MCV 95.8 fL (80.0-100.0)
[2021-09-02 23:33] LABS: Glucose,Whole Blood 291 mg/dL (75-99)
--- NOTE | 2021-09-02 23:36 | P.CONS ---
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 in this patient status post left heart catheterization for ST elevated SD status post PCI of the proximal LAD also noted to have 100% occlusion to the RCA patient has been admitted to the ICU and has been under the care of the cardiology and pulmonary services patient has also been spiking a fever since admission to the hospital with fever 100.6 today patient is hypotensive requiring pressor support and is 100% FiO2 patient had did have white count on admission of 17.8 which is currently down to 14,000 this morning no significant purulent secretion through the ET or any other changes reported by nursing staff most information has been obtained from review the chart and history was consulted last evening for fever all information has been obtained from review the chart as the patient is currently sedated on the vent and is unable provide any history patient did have a sputum culture obtained showing presumptive staph aureus blood cultures have been obtained last night which are currently pending Review of system: Positive point has been mentioned in HPI complete review could not be obtained because of underlying mental status. Past medical history : Reviewed, documented below Past surgical history : Reviewed, documented below Social history: Reviewed, documented below Medications: Reviewed, as documented below EXAMINATION: Vital sigans= Reviewed and documented below GENERAL DESCRIPTION: Middle-aged intubated on the vent. HEENT: Shows Pallor , no scleral icterus. Oral mucous membrane is dry. NECK: Trachea central, no thyromegaly. LUNGS: Unlabored breathing. Decreased breath on the base. No wheeze or crackle. HEART: S1, S2, regular rate and rhythm. ABDOMEN: Soft, no tenderness , guarding or rigidity EXTREMITIES: No edema of feet. SKIN: No rash, no masses palpable. NEUROLOGICAL: The patient is sedated on the vent LABS AND RADIOLOGY: Reviewed results see below Assessment : 1-patient with acute respiratory failure which is multifactorial in this patient presented to the hospital with chest pain subsequently become unresponsive did have ST elevated SD status post PTCA stenting to the LAD in this patient has been running a fever did have elevated white count likely combination of septic and cardiogenic shock and a question of aspiration pneumonitis with a sputum is growing staph aureus with question of MSSA versus community associated MRSA 2-penicillin allergy that would limit the number of antibiotics safe to use Plan: 1-vancomycin pharmacy to dose with a target trough of 15 while watching kidney function and Vanco trough closely. 2-gentle IV fluid We will follow on clinical condition and cultures to further adjust medication if needed Thank you for this consultation we will follow the patient along with you Past Medical History Past Medical History: No Reported History, Coronary Artery Disease (CAD) Additional Past Medical History / Comment(s): No history is available on this patient Last Myocardial Infarction Date:: History of Any Multi-Drug Resistant Organisms: None Reported Past Surgical History: No Surgical Hx Reported Past Anesthesia/Blood Transfusion Reactions: Unable to Obtain Date of Last Stent Placement:: Past Psychological History: No Psychological Hx Reported Smoking Status: Current every day smoker, Unknown if ever smoked Past Alcohol Use History: Unable to Obtain Past Drug Use History: Unable to Obtain - Past Family History Father Family Medical History: Myocardial Infarction (SD) Additional Family Medical History / Comment(s): at 64 of SD, also uncle of mi as well as paternal grandmother and grandfather who both has chf as well. Medications and Allergies Home Medications Medication Instructions Recorded Confirmed Type No Known Home Medications 08/31/21 08/31/21 History Allergies Allergy/AdvReac Type Severity Reaction Status Date / Time green pepper Allergy Anaphylaxis Verified 08/31/21 09:07 Penicillins Allergy Unknown Verified 08/31/21 14:02 Physical Exam Vitals: Vital Signs Temp Pulse Resp BP Pulse Ox 09/02/21 15:34 100.6 F H 131 H 36 H 78/46 94 L 09/02/21 15:24 100.6 F H 128 H 35 H 61/38 99 09/02/21 14:45 126 H 29 H 99 09/02/21 14:30 124 H 34 H 97 09/02/21 14:15 124 H 13 97 09/02/21 14:00 100.8 F H 122 H 26 H 84 L 09/02/21 13:45 118 H 15 96 09/02/21 13:30 120 H 36 H 97 09/02/21 13:15 117 H 22 76/45 94 L 09/02/21 13:00 118 H 42 H 96 09/02/21 12:45 123 H 25 H 100 09/02/21 12:30 124 H 17 99 09/02/21 12:15 120 H 32 H 98 09/02/21 12:00 38.2 F L 112 H 30 H 100 09/02/21 11:45 113 H 98 09/02/21 11:30 112 H 31 H 99 09/02/21 11:15 112 H 31 H 99 09/02/21 11:00 112 H 30 H 95 09/02/21 10:45 100.0 F H 113 H 32 H 98 09/02/21 10:37 112 H 19 09/02/21 07:30 100 09/02/21 07:15 100 22 100 09/02/21 07:00 100 23 99 09/02/21 06:30 103 H 23 98 09/02/21 06:00 103 H 23 100 09/02/21 05:30 98 25 H 100 09/02/21 05:00 93 24 99 09/02/21 04:30 95 24 99 09/02/21 04:00 99.3 F 96 24 99 09/02/21 03:30 100 26 H 98 09/02/21 03:00 105 H 28 H 100 09/02/21 02:30 100 98 09/02/21 02:00 99.7 F H 101 H 25 H 98 09/02/21 01:30 106 H 97 09/02/21 01:00 110 H 26 H 99 09/02/21 00:30 100.9 F H 116 H 96 09/02/21 00:00 181 H 30 H 93 L 09/01/21 23:30 116 H 99 09/01/21 23:00 118 H 25 H 99 09/01/21 22:30 125 H 99 09/01/21 22:00 120 H 25 H 98 09/01/21 21:30 117 H 27 H 98 09/01/21 21:00 120 H 30 H 99 09/01/21 20:30 122 H 100 09/01/21 20:00 100.2 F H 114 H 26 H 96 09/01/21 19:30 117 H 99 09/01/21 19:00 118 H 25 H 99 09/01/21 18:30 117 H 26 H 99 11/09/21 18:00 121 H 26 H 98 11/09/21 17:30 123 H 27 H 98 09/01/21 17:00 123 H 28 H 99 09/01/21 16:30 100.8 F H 124 H 28 H 99 09/01/21 16:04 29 H 09/01/21 16:00 124 H 30 H 97 Intake and Output 09/02/21 09/02/21 09/02/21 06:59 14:59 22:59 Intake Total 789.109 733.181 0 Output Total 420 345 Balance 369.109 388.181 0 Intake: IV 208 338 Normal Saline 160 190 Pressure Bag 48 48 Intake, IV Titration 441.109 385.181 Amount Heparin Sod,Pork in 0.45% 110.18 NaCl 25,000 unit In 0.45 % NaCl 1 250ml.bag @ 12 UNITS/KG/HR 10.164 mls/hr IV .Q24H ROSY Rx#: [id number] Norepinephrine 4 mg In 131.813 271.702 Sodium Chloride 0.9% 250 ml @ 0.05 MCG/KG/MIN 15. 526 mls/hr IV .[id number] ROSY Rx#:[id number] propofoL 1,000 mg In 199.116 113.479 Empty Bag 1 bag @ Titrate IV .Q0M ROSY Rx#: [id number] Tube Feeding 80 10 Blood Product 0 Rc As-1 Unit 0 [id number] Other 60 Output: Urine 420 345 Other: Voiding Method Indwelling Catheter Indwelling Catheter Weight 81.2 kg ABP, PAP, CO, CI - Last 8 Hours Arterial Blood Pressure 65/35 Arterial Blood Pressure 73/42 Arterial Blood Pressure 69/42 Arterial Blood Pressure 71/46 Arterial Blood Pressure 66/41 Arterial Blood Pressure 60/32 Arterial Blood Pressure 81/46 Arterial Blood Pressure 76/48 Arterial Blood Pressure 80/43 Arterial Blood Pressure 74/50 Arterial Blood Pressure 78/49 Arterial Blood Pressure 77/47 Arterial Blood Pressure 73/48 Arterial Blood Pressure 74/44 Arterial Blood Pressure 71/46 Pulmonary Artery Pressure 77/30 Pulmonary Artery Pressure 84/37 Pulmonary Artery Pressure 89/39 Pulmonary Artery Pressure 85/38 Pulmonary Artery Pressure 81/39 Pulmonary Artery Pressure 75/33 Pulmonary Artery Pressure 74/30 Pulmonary Artery Pressure 83/41 Pulmonary Artery Pressure 88/43 Pulmonary Artery Pressure 84/41 Pulmonary Artery Pressure 92/49 Pulmonary Artery Pressure 92/48 Pulmonary Artery Pressure 90/48 Pulmonary Artery Pressure 89/47 Pulmonary Artery Pressure 85/44 Results CBC & Chem 7: 09/02/21 18:20 09/02/21 18:20 Labs: Abnormal Lab Results - Last 24 Hours (Table) 09/01/21 09/01/21 09/01/21 Range/Units 14:55 17:05 20:02 WBC (3.8-10.6) k/uL RBC (4.30-5.90) m/uL Hgb (13.0-17.5) gm/dL Hct (39.0-53.0) % Plt Count (150-450) k/uL Neutrophils # (1.3-7.7) k/uL Fibrinogen (200-500) mg/dL ABG pH (7.35-7.45) ABG pCO2 (35-45) mmHg ABG pO2 (83-108) mmHg ABG HCO3 (21-25) mmol/L ABG Total CO2 (19-24) mmol/L ABG O2 Saturation (94-97) % ABG Lactic Acid (0.5-1.6) mmol/L Sodium (137-145) mmol/L Potassium (3.5-5.1) mmol/L Chloride (98-107) mmol/L Carbon Dioxide (22-30) mmol/L BUN (9-20) mg/dL Glucose (74-99) mg/dL POC Glucose (mg/dL) 146 H 134 H (75-99) mg/dL Calcium (8.4-10.2) mg/dL Ionized Calcium Sherry (4.5-5.3) mg/dL AST (17-59) U/L ALT (4-49) U/L Lactate Dehydrogenase 6969 H (313-618) U/L Total Protein (6.3-8.2) g/dL Albumin (3.5-5.0) g/dL Crossmatch 09/01/21 09/01/21 09/01/21 Range/Units 22:16 22:16 23:39 WBC (3.8-10.6) k/uL RBC (4.30-5.90) m/uL Hgb (13.0-17.5) gm/dL Hct (39.0-53.0) % Plt Count (150-450) k/uL Neutrophils # (1.3-7.7) k/uL Fibrinogen 598 H (200-500) mg/dL ABG pH (7.35-7.45) ABG pCO2 (35-45) mmHg ABG pO2 (83-108) mmHg ABG HCO3 (21-25) mmol/L ABG Total CO2 (19-24) mmol/L ABG O2 Saturation (94-97) % ABG Lactic Acid (0.5-1.6) mmol/L Sodium (137-145) mmol/L Potassium (3.5-5.1) mmol/L Chloride (98-107) mmol/L Carbon Dioxide (22-30) mmol/L BUN (9-20) mg/dL Glucose (74-99) mg/dL POC Glucose (mg/dL) 115 H (75-99) mg/dL Calcium (8.4-10.2) mg/dL Ionized Calcium Sherry (4.5-5.3) mg/dL AST (17-59) U/L ALT (4-49) U/L Lactate Dehydrogenase 5455 H (313-618) U/L Total Protein (6.3-8.2) g/dL Albumin (3.5-5.0) g/dL Crossmatch 09/02/21 09/02/21 09/02/21 Range/Units 04:05 04:11 04:50 WBC (3.8-10.6) k/uL RBC (4.30-5.90) m/uL Hgb (13.0-17.5) gm/dL Hct (39.0-53.0) % Plt Count (150-450) k/uL Neutrophils # (1.3-7.7) k/uL Fibrinogen (200-500) mg/dL ABG pH (7.35-7.45) ABG pCO2 (35-45) mmHg ABG pO2 (83-108) mmHg ABG HCO3 (21-25) mmol/L ABG Total CO2 (19-24) mmol/L ABG O2 Saturation (94-97) % ABG Lactic Acid (0.5-1.6) mmol/L Sodium 134 L (137-145) mmol/L Potassium 3.2 L (3.5-5.1) mmol/L Chloride 113 H (98-107) mmol/L Carbon Dioxide 20 L (22-30) mmol/L BUN (9-20) mg/dL Glucose 119 H (74-99) mg/dL POC Glucose (mg/dL) 150 H (75-99) mg/dL Calcium 6.1 L* (8.4-10.2) mg/dL Ionized Calcium Sherry 4.3 L (4.5-5.3) mg/dL AST 179 H (17-59) U/L ALT 67 H (4-49) U/L Lactate Dehydrogenase 4117 H (313-618) U/L Total Protein 4.2 L (6.3-8.2) g/dL Albumin 2.0 L (3.5-5.0) g/dL Crossmatch 09/02/21 09/02/21 09/02/21 Range/Units 05:40 06:08 06:08 WBC 13.8 H (3.8-10.6) k/uL RBC 2.62 L (4.30-5.90) m/uL Hgb 8.6 L D (13.0-17.5) gm/dL Hct 23.7 L (39.0-53.0) % Plt Count 140 L (150-450) k/uL Neutrophils # 9.5 H (1.3-7.7) k/uL Fibrinogen (200-500) mg/dL ABG pH (7.35-7.45) ABG pCO2 (35-45) mmHg ABG pO2 156 H (83-108) mmHg ABG HCO3 (21-25) mmol/L ABG Total CO2 25 H (19-24) mmol/L ABG O2 Saturation 99.6 H (94-97) % ABG Lactic Acid (0.5-1.6) mmol/L Sodium 133 L (137-145) mmol/L Potassium (3.5-5.1) mmol/L Chloride 108 H (98-107) mmol/L Carbon Dioxide (22-30) mmol/L BUN 21 H (9-20) mg/dL Glucose 138 H (74-99) mg/dL POC Glucose (mg/dL) (75-99) mg/dL Calcium 7.3 L (8.4-10.2) mg/dL Ionized Calcium Sherry (4.5-5.3) mg/dL AST 203 H (17-59) U/L ALT 82 H (4-49) U/L Lactate Dehydrogenase (313-618) U/L Total Protein 5.1 L (6.3-8.2) g/dL Albumin 2.5 L (3.5-5.0) g/dL Crossmatch 09/02/21 09/02/21 09/02/21 Range/Units 08:00 11:06 13:17 WBC 14.0 H (3.8-10.6) k/uL RBC 2.66 L (4.30-5.90) m/uL Hgb 8.6 L (13.0-17.5) gm/dL Hct 23.6 L (39.0-53.0) % Plt Count 143 L (150-450) k/uL Neutrophils # 10.2 H (1.3-7.7) k/uL Fibrinogen (200-500) mg/dL ABG pH (7.35-7.45) ABG pCO2 (35-45) mmHg ABG pO2 (83-108) mmHg ABG HCO3 (21-25) mmol/L ABG Total CO2 (19-24) mmol/L ABG O2 Saturation (94-97) % ABG Lactic Acid (0.5-1.6) mmol/L Sodium (137-145) mmol/L Potassium (3.5-5.1) mmol/L Chloride (98-107) mmol/L Carbon Dioxide (22-30) mmol/L BUN (9-20) mg/dL Glucose (74-99) mg/dL POC Glucose (mg/dL) 185 H 190 H (75-99) mg/dL Calcium (8.4-10.2) mg/dL Ionized Calcium Sherry (4.5-5.3) mg/dL AST (17-59) U/L ALT (4-49) U/L Lactate Dehydrogenase (313-618) U/L Total Protein (6.3-8.2) g/dL Albumin (3.5-5.0) g/dL Crossmatch 09/02/21 09/02/21 09/02/21 Range/Units 13:18 13:18 13:49 WBC 16.8 H (3.8-10.6) k/uL RBC 2.46 L (4.30-5.90) m/uL Hgb 7.9 L (13.0-17.5) gm/dL Hct 22.1 L (39.0-53.0) % Plt Count (150-450) k/uL Neutrophils # (1.3-7.7) k/uL Fibrinogen (200-500) mg/dL ABG pH (7.35-7.45) ABG pCO2 (35-45) mmHg ABG pO2 (83-108) mmHg ABG HCO3 (21-25) mmol/L ABG Total CO2 (19-24) mmol/L ABG O2 Saturation (94-97) % ABG Lactic Acid (0.5-1.6) mmol/L Sodium (137-145) mmol/L Potassium (3.5-5.1) mmol/L Chloride (98-107) mmol/L Carbon Dioxide (22-30) mmol/L BUN (9-20) mg/dL Glucose (74-99) mg/dL POC Glucose (mg/dL) 187 H (75-99) mg/dL Calcium (8.4-10.2) mg/dL Ionized Calcium Sherry (4.5-5.3) mg/dL AST (17-59) U/L ALT (4-49) U/L Lactate Dehydrogenase (313-618) U/L Total Protein (6.3-8.2) g/dL Albumin (3.5-5.0) g/dL Crossmatch See Detail 09/02/21 09/02/21 Range/Units 14:05 14:22 WBC (3.8-10.6) k/uL RBC (4.30-5.90) m/uL Hgb (13.0-17.5) gm/dL Hct (39.0-53.0) % Plt Count (150-450) k/uL Neutrophils # (1.3-7.7) k/uL Fibrinogen (200-500) mg/dL ABG pH 7.46 H (7.35-7.45) ABG pCO2 20 L (35-45) mmHg ABG pO2 66 L (83-108) mmHg ABG HCO3 14 L (21-25) mmol/L ABG Total CO2 15 L (19-24) mmol/L ABG O2 Saturation (94-97) % ABG Lactic Acid 9.0 H* (0.5-1.6) mmol/L Sodium (137-145) mmol/L Potassium (3.5-5.1) mmol/L Chloride (98-107) mmol/L Carbon Dioxide (22-30) mmol/L BUN (9-20) mg/dL Glucose (74-99) mg/dL POC Glucose (mg/dL) (75-99) mg/dL Calcium (8.4-10.2) mg/dL Ionized Calcium Sherry (4.5-5.3) mg/dL AST (17-59) U/L ALT (4-49) U/L Lactate Dehydrogenase (313-618) U/L Total Protein (6.3-8.2) g/dL Albumin (3.5-5.0) g/dL Crossmatch Microbiology - Last 24 Hours (Table) 08/31/21 20:00 Gram Stain - Preliminary Sputum Sputum Culture - Preliminary Presumptive Staph aureus 09/01/21 18:52 Urine Culture - Preliminary Urine,Catheterized
[2021-09-02 23:51] LABS: Band Neutrophils % 15 %; Lymphocytes # (M) 6.58 k/uL (1.0-4.8); Metamyelocytes # (M) 0.27 k/uL (0); Metamyelocytes % 1 %; Monocytes # (M) 1.92 k/uL (0-1.0); Myelocytes # (M) 0.27 k/uL (0); Myelocytes % 1 %; Neutrophils % (M) 52 %; Nucleated Red Blood Cells 0 /100 WBC (0-0); Total Cells Counted 200
[2021-09-02 23:56] LABS: Anisocytosis (M) Present; Crenated RBC Present; Poikilocytosis (M) Present; Polychromasia Present; Toxic Granulation Present
[2021-09-03] MEDS: INSULIN ASPART (NovoLOG) 100 UNIT/ML VIAL SQ SCH ×3 (00:03→09:05)
[2021-09-03 01:15] LABS: INR 1.6 (<1.2); Partial Thromboplastin Time 25.5 sec (22.0-30.0); Prothrombin Time 15.9 sec (9.0-12.0)
[2021-09-03] MEDS: EPINEPHrine 16 MG in DEXTROSE 5% IN WATER 250 ML IV SCH ×6 (01:22→07:51)
[2021-09-03] MEDS: NOREPINEPHRINE 32 MG in SODIUM CHLORIDE 0.9% 218 ML IV SCH ×2 (01:54→07:50)
[2021-09-03] MEDS: MILRINONE-D5W PMX 20 MG in DEXTROSE/WATER 1 100ML.BAG IV SCH (03:32)
[2021-09-03 04:27] LABS: Glucose,Whole Blood 357 mg/dL (75-99)
[2021-09-03 04:48] LABS: HCT 20.9 % (39.0-53.0); HGB 7.4 gm/dL (13.0-17.5); Hypochromasia Slight; MCH 34.6 pg (25.0-35.0); MCHC 35.6 g/dL (31.0-37.0); MCV 97.2 fL (80.0-100.0); Mean Platelet Volume 11.5; Platelet Count 120 k/uL (150-450); Poikilocytosis Slight; RBC 2.15 m/uL (4.30-5.90); RDW 14.6 % (11.5-15.5); WBC 27.5 k/uL (3.8-10.6)
[2021-09-03 05:19] LABS: INR 1.6 (<1.2)
[2021-09-03 05:32] LABS: ABG Base Excess -21.7 mmol/L; ABG PCO2 23 mmHg (35-45); ABG PO2 >400 mmHg (83-108); ABG TCO2 8 mmol/L (19-24); Allen Test Performed? Yes
[2021-09-03 05:35] LABS: ABG HCO3 8 mmol/L (21-25); ABG PH 7.12 (7.35-7.45)
[2021-09-03 05:50] LABS: Band Neutrophils % 27 %; Lymphocytes # (M) 3.58 k/uL (1.0-4.8); Metamyelocytes # (M) 0.55 k/uL (0); Metamyelocytes % 2 %; Monocytes # (M) 0.83 k/uL (0-1.0); Myelocytes # (M) 0.55 k/uL (0); Myelocytes % 2 %; Neutrophils % (M) 53 %; Nucleated Red Blood Cells 0 /100 WBC (0-0); Total Cells Counted 200
[2021-09-03 05:51] LABS: Anisocytosis (M) Present; Poikilocytosis (M) Present; Polychromasia Present; Tear Drop Cells Present
[2021-09-03 05:52] LABS: Spherocytes Present
[2021-09-03] MEDS: VANCOMYCIN 1,500 MG in SODIUM CHLORIDE 0.9% 250 ML IVPB SCH (06:41)
[2021-09-03 06:48] LABS: African American GFR (CKD) 23 (>60 ml/min/1.73 sqM); Albumin 2.1 g/dL (3.5-5.0); Alkaline Phosphatase 76 U/L (38-126); Anion Gap 21 mmol/L; Blood Urea Nitrogen 27 mg/dL (9-20); Chloride 105 mmol/L (98-107); Glucose 314 mg/dL (74-99); Magnesium 2.4 mg/dL (1.6-2.3); Non-African American GFR(CKD) 20 (>60 ml/min/1.73 sqM); Potassium 3.9 mmol/L (3.5-5.1); Sodium 133 mmol/L (137-145); Total Protein 4.4 g/dL (6.3-8.2)
[2021-09-03 07:13] LABS: Carbon Dioxide 7 mmol/L (22-30)
[2021-09-03 07:14] LABS: Calcium 6.1 mg/dL (8.4-10.2)
--- NOTE | 2021-09-03 07:15 | ECHOF ---
Referral Reason:hypotension MEASUREMENTS -------- HEIGHT: 175.3 cm WEIGHT: 81.2 kg BP: 76/45 RVIDd: 3.4 cm (< 3.3) IVSd: 1.3 cm (0.6 - 1.1) LVIDd: 4.5 cm (3.9 - 5.3) LVPWd: 1.1 cm (0.6 - 1.1) IVSs: 1.4 cm LVIDs: 3.6 cm LVPWs: 1.1 cm LAESV Index (A-L): 26.57 ml/m Ao Diam: 2.3 cm (2.0 - 3.7) AV Cusp: 1.7 cm (1.5 - 2.6) MV EXCURSION: 23.459 mm (> 18.000) MV EF SLOPE: 182 mm/s (70 - 150) EPSS: 1.5 cm RAP: 5.00 mmHg RVSP: 47.68 mmHg FINDINGS -------- Sinus rhythm. This was a technically difficult study with suboptimal views. The left ventricular size is normal. There is mild concentric left ventricular hypertrophy. Overa ll left ventricular systolic function is severely impaired with, an EF between 20 - 25 %. Basal ant erior LV wall motion is akinetic. Mid anterior LV wall motion is akinetic. Mid lateral LV wall motion is akinetic. Mid anteroseptal LV wall motion is akinetic. Apical anterior LV wall motion is akinetic. Apical lateral LV wall motion is akinetic. Apical inferior LV wall motion is adriane etic. Apical septum LV wall motion is akinetic. The right ventricle is mildly enlarged. Normal LA size by volume 22+/-6 ml/m2. The right atrium was not well visualized. 5.0mg of Lumason was utilized for enhancement of images Interatrial and interventricular septum intact. The aortic valve is trileaflet, and appears structurally normal. No aortic stenosis or regurgitation. The mitral valve is normal. Hzea-am-mfeixkuh mitral regurgitation is present. Lyts-ng-lvptlpuy tricuspid regurgitation present. There is mild to moderate pulmonary hypertension. The right ventricular systolic pressure, as measured by Doppler, is 47.68mmHg. There is no pulmonic regurgitation present. The aortic root size is normal. IVC Not well visulized. There is no pericardial effusion. CONCLUSIONS -------- 1. There is mild concentric left ventricular hypertrophy. 2. Overall left ventricular systolic function is severely impaired with, an EF between 20 - 25 %. 3. Basal anterior LV wall motion is akinetic. 4. Mid anterior LV wall motion is akinetic. 5. Mid lateral LV wall motion is akinetic. 6. Mid anteroseptal LV wall motion is akinetic. 7. Apical anterior LV wall motion is akinetic. 8. Apical lateral LV wall motion is akinetic. 9. Apical inferior LV wall motion is akinetic. 10. Apical septum LV wall motion is akinetic. 11. The right ventricle is mildly enlarged. 12. Normal LA size by volume 22+/-6 ml/m2. 13. The aortic valve is trileaflet, and appears structurally normal. No aortic stenosis or regurgitat ion. 14. Aifm-in-hgnpwtka mitral regurgitation is present. 15. Pklb-fd-bagyoasc tricuspid regurgitation present. 16. There is mild to moderate pulmonary hypertension. EXHIBITIONS AND COLLECTIONS MANAGER: Alia Gerardo RDCS
[2021-09-03 07:42] LABS: ALT 2682 U/L (4-49)
[2021-09-03 07:46] LABS: AST 6935 U/L (17-59)
[2021-09-03 07:47] LABS: LDH >21500 U/L (313-618)
--- NOTE | 2021-09-03 07:55 | XR ---
EXAMINATION TYPE: XR chest 1V portable DATE OF EXAM: 09/03/2021 CLINICAL HISTORY: Difficulty breathing progress study. TECHNIQUE: Single AP portable semiupright view of the chest is obtained. COMPARISON: Chest x-ray from one day earlier and older studies. FINDINGS: Stable endotracheal and orogastric tubes. Stable transaortic catheter presumed terminating in left ventricle. Bilateral multifocal predominantly interstitial opacities remain present. Cardiac silhouette size is stable and within normal limits. Osseous structures are intact. No pleural effusion or pneumothorax n oted. IMPRESSION: Persistent bilateral mild to moderate multifocal interstitial edema and/or less likely ac krissy infiltrates. No significant change from one day earlier.
[2021-09-03 08:20] VITALS: TEMP 99.2
[2021-09-03] MEDS ORDERED: VANCOMYCIN IV PER PHARMACY 1 EACH MISC MISCELLANE PRN (08:24)
[2021-09-03 08:25] LABS: Glucose,Whole Blood 292 mg/dL (75-99)
--- NOTE | 2021-09-03 08:41 | P.PN ---
Subjective Progress Note Date: 09/03/21 Patient is a pleasant 46-year-old male with a history of collapsed lung and who called EMS secondary to chest pain. During transportation patient had a V. fib arrest and was intubated with approximately 5 minutes of downtime with CPR performed and defibrillation. Patient remained sedated on ventilator and he came to emergency department and was found to have anterior lateral ST elevation. Therefore recommendations were for emergency heart catheterization.eft heart catheterization, bilateral coronary angiography, Impella CP placement from right femoral approach, PCI of proximal LAD with a 3.5 x 15 mm Xience IVON, PTCA diagonal 2 with a 2.5 x 12 mm balloon, PCI mid LAD with overlapping 2.75 x 12 and 2.5 x 8mm Xience IVON, right femoral angiogram, left femoral and right SFA sheath placement with external left femoral to right SFA bypass placement was also given an empiric a device which is currently running at with his P9 with an output of 3.4 L per minute. She is currently in normal sinus rhythm. LV end-diastolic pressure was 39. The patient is currently on IV heparin. He is on no antiarrhythmics. His IV fluids running at 20 mL an hour in the urine output is normal but of 150 mL over the past 1 hour. He is on no pressors at this point in time. Most recent blood pressure is 110/96. He remains on a mechanical ventilator. He is sedated with propofol which is running at 30 mics are as per kilogram per minute. He is on assist control mode at the rate of 18, tidal volume of 450, FiO2 of 100% with a PEEP of 5. The blood gases from this morning is still pending. A chest x-ray is showing acute pulmonary edema. ET tube is in a good location. The patient has not followed device. The orogastric tube seems to be in a good location. No blood gases available yet. The patient has elevated blood sugar. There is also some mild leukocytosis, consider the possibility of an underlying aspiration. OG tube is in place and output is nonbloody. On 09/01/2021 I'm seeing this patient for a follow-up. The patient is still sedated on propofol which is running at 40 mcg/kg per minute. Remains intubated on a mechanical ventilator. He is on an assist-control mode at the rate of 18, tidal volume of 450, FiO2 40% with a PEEP of 5. Chest x-ray shows clearing of the previously noted pulmonary edema. The patient has been making excellent urine output and the patient has been diuresing well while being supported with in follow-up. The blood gases from today showed a pH of 7.43 with a pCO2 of 33 and pO2 of 124 and there is adequate oxygenation and ventilation at this point in time. Chest x-ray has very much normalized at this point in time. ET tube is in a good location. Orogastric tube is also in good location. In terms of his hemodynamics, the patient remains in sinus tachycardia at the rate of 120. His mean arterial pressure is 68 and this is augmented through Impella with a flow of 2.8 L and the patient is on a P5 support. Urine output has been in the order of 75 mL's an hour. Blood work from today shows a white cell count of 14.9 with a hemoglobin of 11.9. The platelet counts are at 183 which is stable compared to yesterday. Coagulation profile shows a PT of 73. The patient has hyper running through the device. He did have some bleeding at the site of insertion of the Impella and a FemoStop was applied to the area. His renal function is stable with a creatinine of 1.1 and this is improved compared to yesterday. BUN is at 29. Electrolytes are normal with a potassium level of 4.4. Troponin peaked at 591. He remains on aspirin. Remains on Effient. Remains nothing by mouth. OG tube is in place. 10 2020, the patient is being seen for a follow-up in the intensive care unit. As mentioned earlier, he is a 46-year-old male patient was supposed STEMI, post emergent cardiac catheterization and stenting of the LAD, post insertion of an Impella device and cardiogenic shock. Over the past few days, the patient was kept on Impella for cardiac augmentation and the patient was on a P5 augmentation with a flow of 2.9 L per minute. He was doing well and he was hemodynamically stable and he was not requiring any pressors and his acute pulmonary edema was also improving. Overnight, the patient had a bout of SVT with rapid ventricular response and he became quite hypotensive. He received every cardioversion 2 and he recovered and is back into normal sinus rhythm. Subsequently, he had to be going on pressors and the patient is on norepinephrine infusion at 4 g per minute and amiodarone 0.5 mg per minute per protocol. Furthermore, the patient was taken to the [facility] and consideration of removing the Impella device today. Meanwhile, the patient was kept on a mechanical ventilator. This morning he was an assist-control mode at a rate of 18, with a tidal volume of 450, FiO2 of 40% with a PEEP of 5. Blood gases from this morning showed a pH of 7.4 with a pCO2 of 36 and pO2 156. Chest x-ray was clear. He was in a good location. Urine output was in order of 50-60 mL an hour. His hemoglobin had dropped down to 8.8 and 8.6. No evidence of any hematuria. No evidence of any bleeding from his Impella site. The patient up this morning. Also, he was retrogradely being perfused in his right lower extremity. He has still diminished pulses present in the lower extremities bilaterally. White cell count is at 14, platelet count is down to 143, his creatinine is down to 0.8 with a BUN of 21 my normal electrolytes. He is afebrile. No other significant issues overnight. He has an orogastric tube in place. 2 feeding was started yesterday and he was receiving vital AF at the rate of 10 mL an hour. He remains on aspirin. He remains on Effient. On today's evaluation and prior to him going to the Pulmonary arterial pressure was 65. Mental status and along, the patient is being seen for a follow-up. This is a case of a young fellow, 46-year-old was post STEMI and cardiac catheterization and stenting of the LAD. He subsequently went today cardiogenic shock. He was supported with an Impella device. He was doing well and after stabilizing his condition adequately over the past 48 hours, the patient was taken to the Hydro[facility] T[facility] again and his Impella device was discontinued and removed. Note that he came back to the ICU and the patient was weaned off the mechanical ventilator and the patient was also extubated. Immediately post extubation, the patient was doing well and he was awake and alert and following commands. Within a few hours, his condition decompensated and the patient became progressively more hypotensive, he was requiring pressors and there was progressive increase in the dose of norepinephrine that the patient was requiring. The same time, his urine output dropped and the patient became progressively more acidotic tachypneic and in respiratory distress. He was obviously hadn't a shock state. His blood gas showed underlying metabolic acidosis and the patient also developed an acute kidney injury. At that point, the patient was taken to the Hydro[facility] Tester again for the insertion of the Impella. While in the [facility], the patient suffered a cardiac pulmonary arrest. He went into a PEA rhythm. He received CPR for a total of 7 minutes. There was return of spontaneous circulation following resuscitation and CPR. In the [facility], the patient was restarted back on Impella which is currently on a p5 support regenerated flow of 2.7 L per minute. Meanwhile, the patient became progressively in a shock state and he had significantly increases pressor requirements. While in the [facility] T[facility], he was maximized on his norepinephrine he was also started on epinephrine. Currently is also on milrinone. For now he is on a combination of norepinephrine, epinephrine, milrinone and vasopressin. Note that norepinephrine is running at a dose of 1 mcg/kg per minute, epinephrine is running at 1 mcg/kg per minute and vasopressin is at physiologic dose of 0.03 units per hour and milrinone is running at 0.5 mg/kg/m. Despite all this, he has a mean arterial pressure of 29. In terms of his condition, the patient is sedated and he is currently on propofol running at 35 mg/kg per minute. He remains on a mechanical ventilated and I have him on a assist-control mode with a tidal volume of 550, rate of 32, FiO2 of 50% with a PEEP of 5. His lactic acid level is 17. His pH is at 7.12 with a pCO2 of 23 and pO2 of above 400 and this was not an FiO2 of 100%. He is in acute kidney injury. Creatinine is up to 3.56 with a BUN of 27. Her bicarb is down to 7. Glucose at 292. He has a LDH level of 21,001 shock liver with significant elevation of the AST and ALT. He did receive a packed of his with a unit of packed RBC from yesterday. The chest x-ray from today showing somewhat interstitial markings. ET tube is in a good location. No other acute changes were noted. Wet echo is at 27 with a hemoglobin of 7.4, platelet count is up to 120. The patient was also covered with broad-spectrum antibiotics. The patient is on a combination of Rocephin and vancomycin as the patient was having runs of fever throughout the day yesterday. Cultures were also sent and the results are still pending for now. His CODE STATUS has been switched to DO NOT RESUSCITATE and the family is at the bedside. His skin is mottled. He has absent palpable pulses in all 4 extremities. He has Doppler signals. Objective - Vital Signs Vital signs: Vital Signs Temp 99.2 F 09/03/21 08:00 Pulse 94 09/03/21 08:15 Resp 27 H 09/03/21 08:15 BP 76/45 09/02/21 21:30 Pulse Ox 99 09/03/21 08:15 Intake & Output 09/02/21 09/03/21 09/03/21 18:59 06:59 18:59 Intake Total 1688.785 6021.872 527.84 Output Total 355 5 0 Balance 1726.172 3575.872 527.84 Weight 87.1 kg Intake: IV 673 309 52 Normal Saline 230 240 40 Pressure Bag 63 69 12 Intake, IV Titration 157.979 9429.872 475.84 Amount Amiodarone 450 mg In 250 Dextrose 5% in Water 250 ml @ 0.5 MG/MIN 16.667 mls/hr IV .Q15H [facility] Rx#: [id number] EPINEPHrine 16 mg In 629.300 250 Dextrose 5% in Water 250 ml @ 1 MCG/KG/MIN 76.125 mls/hr IV .Q3H18M [facility] Rx# :[id number] Heparin Sod,Pork in 0.45% 188.408 NaCl 25,000 unit In 0.45 % NaCl 1 250ml.bag @ 12 UNITS/KG/HR 10.164 mls/hr IV .Q24H [facility] Rx#: [id number] Milrinone-D5w Pmx 20 mg 127.585 In Dextrose/Water 1 100ml .bag @ 0.5 MCG/KG/MIN 12. 18 mls/hr IV .Q8H13M [facility] Rx#:[id number] Norepinephrine 32 mg In 225.84 Sodium Chloride 0.9% 218 ml @ 0.05 MCG/KG/MIN 1. 903 mls/hr IV .Q24H [facility] Rx#:[id number] Norepinephrine 4 mg In 370.290 Sodium Chloride 0.9% 250 ml @ 0.05 MCG/KG/MIN 15. 526 mls/hr IV .[id number] [facility] Rx#:[id number] Norepinephrine 8 mg In 516 Sodium Chloride 0.9% 250 ml @ 0.05 MCG/KG/MIN 7. 856 mls/hr IV .Q24H [facility] Rx#:[id number] propofoL 1,000 mg In 113.479 195.579 Empty Bag 1 bag @ Titrate IV .Q0M [facility] Rx#: [id number] Tube Feeding 10 Blood Product 310 Rc As-1 Unit 310 [id number] Output: Urine 355 5 0 Other: Voiding Method Indwelling Catheter Indwelling Catheter Indwelling Catheter ABP, PAP, CO, CI - Last Documented Arterial Blood Pressure 34/27 Pulmonary Artery Pressure 79/36 - Exam As the patient is calm comfortable sedated intubated on a mechanical ventilator. Orotracheal and orogastric tube are both in place. Head exam was generally normal. There was no scleral icterus or corneal arcus. Mucous membranes were moist. Neck was supple and without jugular venous distension, thyromegaly, or carotid bruits. Carotids were easily palpable bilaterally. There was no adenopathy. Lungs sounds are diminished and the patient has some rales in the lung bases bilaterally Cardiac exam revealed the PMI to be normally situated and sized. The rhythm was regular and no extrasystoles were noted during several minutes of auscultation. The first and second heart sounds were normal and physiologic splitting of the second heart sound was noted. There were no murmurs, rubs, clicks, or gallops. Abdominal exam revealed normal bowel sounds. The abdomen was soft, non-tender, and without masses, organomegaly, or appreciable enlargement of the abdominal aorta. Extremities revealed no palpable pulses and on today's evaluation, there is palpable pulses in the feet bilaterally in the upper extremities and the pulsation has improved. The patient has a FemoStop in the right groin area. No hematoma. No significant bleeding. The feet bilaterally are warm. The patient has an intolerance advice in his right groin. Neurologically, the patient is sedated with propofol. Pupils are equal and reactive to light. No agitation. No seizure activity has been noted. Extremities are cold and the skin is very much mottled at this point in time. Is also cyanosis. Neurologically, the patient is sedated and the patient is also unresponsive at this point in time. - Labs CBC & Chem 7: 09/03/21 04:20 09/03/21 04:20 Labs: Abnormal Lab Results - Last 24 Hours (Table) 09/02/21 09/02/21 09/02/21 Range/Units 06:08 11:06 13:17 WBC (3.8-10.6) k/uL RBC (4.30-5.90) m/uL Hgb (13.0-17.5) gm/dL Hct (39.0-53.0) % Plt Count (150-450) k/uL Neutrophils # (Manual) (1.3-7.7) k/uL Lymphocytes # (Manual) (1.0-4.8) k/uL Monocytes # (Manual) (0-1.0) k/uL Metamyelocytes # (Man) (0) k/uL Myelocytes # (Manual) (0) k/uL PT (9.0-12.0) sec INR (<1.2) Fibrinogen 538 H (200-500) mg/dL ABG pH (7.35-7.45) ABG pCO2 (35-45) mmHg ABG pO2 (83-108) mmHg ABG HCO3 (21-25) mmol/L ABG Total CO2 (19-24) mmol/L ABG O2 Saturation (94-97) % ABG Lactic Acid (0.5-1.6) mmol/L Sodium (137-145) mmol/L Chloride (98-107) mmol/L Carbon Dioxide (22-30) mmol/L BUN (9-20) mg/dL Creatinine (0.66-1.25) mg/dL Glucose (74-99) mg/dL POC Glucose (mg/dL) 185 H 190 H (75-99) mg/dL Plasma Lactic Acid Damian (0.7-2.0) mmol/L Calcium (8.4-10.2) mg/dL Magnesium (1.6-2.3) mg/dL AST (17-59) U/L ALT (4-49) U/L Lactate Dehydrogenase (313-618) U/L Total Protein (6.3-8.2) g/dL Albumin (3.5-5.0) g/dL Crossmatch 09/02/21 09/02/21 09/02/21 Range/Units 13:18 13:18 13:49 WBC 16.8 H (3.8-10.6) k/uL RBC 2.46 L (4.30-5.90) m/uL Hgb 7.9 L (13.0-17.5) gm/dL Hct 22.1 L (39.0-53.0) % Plt Count (150-450) k/uL Neutrophils # (Manual) (1.3-7.7) k/uL Lymphocytes # (Manual) (1.0-4.8) k/uL Monocytes # (Manual) (0-1.0) k/uL Metamyelocytes # (Man) (0) k/uL Myelocytes # (Manual) (0) k/uL PT (9.0-12.0) sec INR (<1.2) Fibrinogen (200-500) mg/dL ABG pH (7.35-7.45) ABG pCO2 (35-45) mmHg ABG pO2 (83-108) mmHg ABG HCO3 (21-25) mmol/L ABG Total CO2 (19-24) mmol/L ABG O2 Saturation (94-97) % ABG Lactic Acid (0.5-1.6) mmol/L Sodium (137-145) mmol/L Chloride (98-107) mmol/L Carbon Dioxide (22-30) mmol/L BUN (9-20) mg/dL Creatinine (0.66-1.25) mg/dL Glucose (74-99) mg/dL POC Glucose (mg/dL) 187 H (75-99) mg/dL Plasma Lactic Acid Damian (0.7-2.0) mmol/L Calcium (8.4-10.2) mg/dL Magnesium (1.6-2.3) mg/dL AST (17-59) U/L ALT (4-49) U/L Lactate Dehydrogenase (313-618) U/L Total Protein (6.3-8.2) g/dL Albumin (3.5-5.0) g/dL Crossmatch See Detail 09/02/21 09/02/21 09/02/21 Range/Units 14:05 14:22 15:54 WBC (3.8-10.6) k/uL RBC (4.30-5.90) m/uL Hgb (13.0-17.5) gm/dL Hct (39.0-53.0) % Plt Count (150-450) k/uL Neutrophils # (Manual) (1.3-7.7) k/uL Lymphocytes # (Manual) (1.0-4.8) k/uL Monocytes # (Manual) (0-1.0) k/uL Metamyelocytes # (Man) (0) k/uL Myelocytes # (Manual) (0) k/uL PT (9.0-12.0) sec INR (<1.2) Fibrinogen (200-500) mg/dL ABG pH 7.46 H 7.26 L (7.35-7.45) ABG pCO2 20 L 16 L* (35-45) mmHg ABG pO2 66 L 64 L (83-108) mmHg ABG HCO3 14 L 7 L* (21-25) mmol/L ABG Total CO2 15 L 8 L (19-24) mmol/L ABG O2 Saturation 90.3 L (94-97) % ABG Lactic Acid 9.0 H* (0.5-1.6) mmol/L Sodium (137-145) mmol/L Chloride (98-107) mmol/L Carbon Dioxide (22-30) mmol/L BUN (9-20) mg/dL Creatinine (0.66-1.25) mg/dL Glucose (74-99) mg/dL POC Glucose (mg/dL) (75-99) mg/dL Plasma Lactic Acid Damian (0.7-2.0) mmol/L Calcium (8.4-10.2) mg/dL Magnesium (1.6-2.3) mg/dL AST (17-59) U/L ALT (4-49) U/L Lactate Dehydrogenase (313-618) U/L Total Protein (6.3-8.2) g/dL Albumin (3.5-5.0) g/dL Crossmatch 09/02/21 09/02/21 09/02/21 Range/Units 18:16 18:20 18:20 WBC (3.8-10.6) k/uL RBC (4.30-5.90) m/uL Hgb (13.0-17.5) gm/dL Hct (39.0-53.0) % Plt Count (150-450) k/uL Neutrophils # (Manual) (1.3-7.7) k/uL Lymphocytes # (Manual) (1.0-4.8) k/uL Monocytes # (Manual) (0-1.0) k/uL Metamyelocytes # (Man) (0) k/uL Myelocytes # (Manual) (0) k/uL PT (9.0-12.0) sec INR (<1.2) Fibrinogen (200-500) mg/dL ABG pH 7.13 L* (7.35-7.45) ABG pCO2 32 L (35-45) mmHg ABG pO2 177 H (83-108) mmHg ABG HCO3 11 L (21-25) mmol/L ABG Total CO2 12 L (19-24) mmol/L ABG O2 Saturation 99.4 H (94-97) % ABG Lactic Acid (0.5-1.6) mmol/L Sodium (137-145) mmol/L Chloride (98-107) mmol/L Carbon Dioxide (22-30) mmol/L BUN (9-20) mg/dL Creatinine (0.66-1.25) mg/dL Glucose (74-99) mg/dL POC Glucose (mg/dL) (75-99) mg/dL Plasma Lactic Acid Damian 17.6 H* (0.7-2.0) mmol/L Calcium (8.4-10.2) mg/dL Magnesium (1.6-2.3) mg/dL AST (17-59) U/L ALT (4-49) U/L Lactate Dehydrogenase 20801 H (313-618) U/L Total Protein (6.3-8.2) g/dL Albumin (3.5-5.0) g/dL Crossmatch 09/02/21 09/02/21 09/02/21 Range/Units 18:20 18:20 18:21 WBC 27.4 H (3.8-10.6) k/uL RBC 2.29 L (4.30-5.90) m/uL Hgb 7.5 L (13.0-17.5) gm/dL Hct 22.0 L (39.0-53.0) % Plt Count 134 L (150-450) k/uL Neutrophils # (Manual) 18.30 H (1.3-7.7) k/uL Lymphocytes # (Manual) 6.58 H (1.0-4.8) k/uL Monocytes # (Manual) 1.92 H (0-1.0) k/uL Metamyelocytes # (Man) 0.27 H (0) k/uL Myelocytes # (Manual) 0.27 H (0) k/uL PT (9.0-12.0) sec INR (<1.2) Fibrinogen (200-500) mg/dL ABG pH (7.35-7.45) ABG pCO2 (35-45) mmHg ABG pO2 (83-108) mmHg ABG HCO3 (21-25) mmol/L ABG Total CO2 (19-24) mmol/L ABG O2 Saturation (94-97) % ABG Lactic Acid (0.5-1.6) mmol/L Sodium (137-145) mmol/L Chloride 109 H (98-107) mmol/L Carbon Dioxide 11 L (22-30) mmol/L BUN 23 H (9-20) mg/dL Creatinine 1.94 H (0.66-1.25) mg/dL Glucose 137 H (74-99) mg/dL POC Glucose (mg/dL) 154 H (75-99) mg/dL Plasma Lactic Acid Damian (0.7-2.0) mmol/L Calcium 6.3 L* (8.4-10.2) mg/dL Magnesium (1.6-2.3) mg/dL AST 1599 H (17-59) U/L ALT 980 H (4-49) U/L Lactate Dehydrogenase (313-618) U/L Total Protein 4.2 L (6.3-8.2) g/dL Albumin 2.1 L (3.5-5.0) g/dL Crossmatch 09/02/21 09/02/21 09/02/21 Range/Units 20:39 23:30 23:33 WBC (3.8-10.6) k/uL RBC (4.30-5.90) m/uL Hgb (13.0-17.5) gm/dL Hct (39.0-53.0) % Plt Count (150-450) k/uL Neutrophils # (Manual) (1.3-7.7) k/uL Lymphocytes # (Manual) (1.0-4.8) k/uL Monocytes # (Manual) (0-1.0) k/uL Metamyelocytes # (Man) (0) k/uL Myelocytes # (Manual) (0) k/uL PT 15.9 H (9.0-12.0) sec INR 1.6 H (<1.2) Fibrinogen (200-500) mg/dL ABG pH (7.35-7.45) ABG pCO2 (35-45) mmHg ABG pO2 (83-108) mmHg ABG HCO3 (21-25) mmol/L ABG Total CO2 (19-24) mmol/L ABG O2 Saturation (94-97) % ABG Lactic Acid (0.5-1.6) mmol/L Sodium (137-145) mmol/L Chloride (98-107) mmol/L Carbon Dioxide (22-30) mmol/L BUN (9-20) mg/dL Creatinine (0.66-1.25) mg/dL Glucose (74-99) mg/dL POC Glucose (mg/dL) 239 H 291 H (75-99) mg/dL Plasma Lactic Acid Damian (0.7-2.0) mmol/L Calcium (8.4-10.2) mg/dL Magnesium (1.6-2.3) mg/dL AST (17-59) U/L ALT (4-49) U/L Lactate Dehydrogenase (313-618) U/L Total Protein (6.3-8.2) g/dL Albumin (3.5-5.0) g/dL Crossmatch 09/03/21 09/03/21 09/03/21 Range/Units 04:16 04:20 04:20 WBC (3.8-10.6) k/uL RBC (4.30-5.90) m/uL Hgb (13.0-17.5) gm/dL Hct (39.0-53.0) % Plt Count (150-450) k/uL Neutrophils # (Manual) (1.3-7.7) k/uL Lymphocytes # (Manual) (1.0-4.8) k/uL Monocytes # (Manual) (0-1.0) k/uL Metamyelocytes # (Man) (0) k/uL Myelocytes # (Manual) (0) k/uL PT 16.0 H (9.0-12.0) sec INR 1.6 H (<1.2) Fibrinogen (200-500) mg/dL ABG pH (7.35-7.45) ABG pCO2 (35-45) mmHg ABG pO2 (83-108) mmHg ABG HCO3 (21-25) mmol/L ABG Total CO2 (19-24) mmol/L ABG O2 Saturation (94-97) % ABG Lactic Acid (0.5-1.6) mmol/L Sodium 133 L (137-145) mmol/L Chloride (98-107) mmol/L Carbon Dioxide 7 L* (22-30) mmol/L BUN 27 H (9-20) mg/dL Creatinine 3.56 H (0.66-1.25) mg/dL Glucose 314 H (74-99) mg/dL POC Glucose (mg/dL) 357 H (75-99) mg/dL Plasma Lactic Acid Damian (0.7-2.0) mmol/L Calcium 6.1 L* (8.4-10.2) mg/dL Magnesium 2.4 H (1.6-2.3) mg/dL AST 6935 H (17-59) U/L ALT 2682 H (4-49) U/L Lactate Dehydrogenase >03637 H (313-618) U/L Total Protein 4.4 L (6.3-8.2) g/dL Albumin 2.1 L (3.5-5.0) g/dL Crossmatch 09/03/21 09/03/21 09/03/21 Range/Units 04:20 04:20 05:26 WBC 27.5 H (3.8-10.6) k/uL RBC 2.15 L (4.30-5.90) m/uL Hgb 7.4 L (13.0-17.5) gm/dL Hct 20.9 L (39.0-53.0) % Plt Count 120 L (150-450) k/uL Neutrophils # (Manual) 22.00 H (1.3-7.7) k/uL Lymphocytes # (Manual) (1.0-4.8) k/uL Monocytes # (Manual) (0-1.0) k/uL Metamyelocytes # (Man) 0.55 H (0) k/uL Myelocytes # (Manual) 0.55 H (0) k/uL PT (9.0-12.0) sec INR (<1.2) Fibrinogen (200-500) mg/dL ABG pH 7.12 L* (7.35-7.45) ABG pCO2 23 L (35-45) mmHg ABG pO2 >400 H (83-108) mmHg ABG HCO3 8 L* (21-25) mmol/L ABG Total CO2 8 L (19-24) mmol/L ABG O2 Saturation 100.0 H (94-97) % ABG Lactic Acid (0.5-1.6) mmol/L Sodium (137-145) mmol/L Chloride (98-107) mmol/L Carbon Dioxide (22-30) mmol/L BUN (9-20) mg/dL Creatinine (0.66-1.25) mg/dL Glucose (74-99) mg/dL POC Glucose (mg/dL) (75-99) mg/dL Plasma Lactic Acid Damian 17.7 H* (0.7-2.0) mmol/L Calcium (8.4-10.2) mg/dL Magnesium (1.6-2.3) mg/dL AST (17-59) U/L ALT (4-49) U/L Lactate Dehydrogenase (313-618) U/L Total Protein (6.3-8.2) g/dL Albumin (3.5-5.0) g/dL Crossmatch 09/03/21 Range/Units 08:23 WBC (3.8-10.6) k/uL RBC (4.30-5.90) m/uL Hgb (13.0-17.5) gm/dL Hct (39.0-53.0) % Plt Count (150-450) k/uL Neutrophils # (Manual) (1.3-7.7) k/uL Lymphocytes # (Manual) (1.0-4.8) k/uL Monocytes # (Manual) (0-1.0) k/uL Metamyelocytes # (Man) (0) k/uL Myelocytes # (Manual) (0) k/uL PT (9.0-12.0) sec INR (<1.2) Fibrinogen (200-500) mg/dL ABG pH (7.35-7.45) ABG pCO2 (35-45) mmHg ABG pO2 (83-108) mmHg ABG HCO3 (21-25) mmol/L ABG Total CO2 (19-24) mmol/L ABG O2 Saturation (94-97) % ABG Lactic Acid (0.5-1.6) mmol/L Sodium (137-145) mmol/L Chloride (98-107) mmol/L Carbon Dioxide (22-30) mmol/L BUN (9-20) mg/dL Creatinine (0.66-1.25) mg/dL Glucose (74-99) mg/dL POC Glucose (mg/dL) 292 H (75-99) mg/dL Plasma Lactic Acid Damian (0.7-2.0) mmol/L Calcium (8.4-10.2) mg/dL Magnesium (1.6-2.3) mg/dL AST (17-59) U/L ALT (4-49) U/L Lactate Dehydrogenase (313-618) U/L Total Protein (6.3-8.2) g/dL Albumin (3.5-5.0) g/dL Crossmatch Microbiology - Last 24 Hours (Table) 08/31/21 20:00 Gram Stain - Preliminary Sputum Sputum Culture - Preliminary Presumptive Staph aureus 09/01/21 18:52 Urine Culture - Preliminary Urine,Catheterized Assessment and Plan Plan: [address] segment elevation myocardial infarction with secondary V. fib cardiac arrest and a downtime of around 5 minutes during which the patient received CPR. The patient was taken to catheterization and the patient was given an Impella device through the right femoral artery and the patient was given 3 stents in his LAD. Currently on a combination of aspirin and Effient and IV heparin. After his condition was being stabilized and Impella assistance, the patient had Impella device removed yesterday and subsequently went into cardiogenic shock and he had also a brief cardiac pulmonary arrest. Impella was reinserted. Meanwhile, the patient is on a combination of pressors and currently is on a combination of norepinephrine, epinephrine, vasopressin and milrinone. He has no palpable pulses. The mean arterial pressures 29. No urine output. Severely acidotic. Severe lactic acidosis and he is any cardiogenic shock which shock liver and acute kidney injury. As such, the patient has developed multisystem organ failure secondary to cardiogenic shock. 2 acute hypoxic respiratory failure secondary to above currently intubated on mechanical ventilator 3 acute pulmonary edema secondary to acute GA and cardiac arrest. The patient left ventricular end-diastolic pressure was elevated at 39. Consider cardiogenic shock post GA/cardiac arrest. Note that the chest x-ray was recovered and the acute pulmonary edema is also recovered. r. 4 acute cardiogenic shock, secondary to above 5 acute hyperglycemia secondary to above 6 diminished pulses in all 4 extremities, positive pain by Doppler signal and the patient has an Impella for hemodynamic support. 7 acute kidney injury 8 lactic acidosis acute anion gap metabolic acidosis secondary to above 9 V. fib cardiac arrest secondary to above 10 acute leukocytosis reactive versus infectious, improving 11 abnormal LFTs, shock liver secondary to above 12 and episodes of SVT, post cardioversion currently on amiodarone drip per protocol Plan Continue ventilator support. No changes Keep the supportive care as directed above and would awaiting for more family members to arrive and proceed with comfort measures only or this patient. Keep Impella in place. Keep the combination of pressors. Continue the ventilator support. No other changes from the pulmonary and critical care standpoint. The patient would likely from multisystem organ failure related to cardiogenic shock. Comfort care measures is to be introduced along with end-of-life care once other family members are here This is a critically care evaluation that was done and more than 30 minutes. Time with Patient: Greater than 30
[2021-09-03 08:49] VITALS: RESP 32
[2021-09-03] MEDS: PRASUGREL 10 MG TAB PO SCH (09:10)
[2021-09-03] MEDS: CHLORHEXIDINE GLUCONATE 15 ML CUP MUCOUS MEM SCH (09:10)
[2021-09-03] MEDS: ASPIRIN 81 MG PO SCH (09:10)
[2021-09-03] MEDS: PANTOPRAZOLE 40 MG/10 ML VIAL IVP SCH (09:10)
[2021-09-03 10:03] VITALS: PULSE 53
[2021-09-03] MEDS ORDERED: VANCOMYCIN TROUGH DUE 1 EACH MISC MISCELLANE ONE (14:00)
--- NOTE | 2021-09-04 11:09 | DS ---
DISCHARGE SUMMARY DATE OF SERVICE: 09/03/2021. PRELIMINARY CAUSE OF : Coronary atherosclerosis and acute myocardial infarction, [id number] myocardial infarction. OTHER DIAGNOSES: 1. Status post cardiac arrest and acute LL-zldeqdw-ufttktafl myocardial infarction, status post cardiac catheterization and LAD stenting. 2. Cardiogenic shock, severe. 3. Ventricular fibrillation and cardiac arrhythmia. 4. Severe acute metabolic and respiratory acidosis. 5. Impella device, status post. 6. Acute hypoxic respiratory failure, on mechanical vent secondary to above. 7. Staphylococcus aureus from the sputum. 8. Acute hyperglycemia. 9. Acute kidney injury and acute metabolic acidosis. 10.Fever. 11.Status post CPR for 5 minutes. 12.Increased white count. 13.Anemia, normocytic; undetermined etiology. 14.Hyponatremia. 15.Elevated AST, ALT with possible ischemic hepatitis. 16.Elevated troponin of 59.1. 17.Elevated procalcitonin. HISTORY OF PRESENT ILLNESS: This 46-year-old gentleman was admitted after cardiac arrest and from acute ST- segment-elevation myocardial infarction. Patient had cardiac catheterization and LAD stenting, but the patient had severe cardiogenic shock. Impella device was initiated. The patient also was mechanically intubated for acute hypoxic respiratory failure in the ICU. Impella was removed, but because of severe hypotension and cardiogenic shock, the Impella had to be reintroduced. Subsequently patient's condition worsened in the ICU. Patient was being followed by multiple consultants, including Cardiology and Pulmonology. Broad-spectrum antibiotics were also given. The patient's condition worsened, and despite medical treatment, the patient while in the hospital. Please refer to the cardiology and pulmonology notes for further details. The prognosis was extremely guarded throughout the hospital stay. MMODL / IJN: [id number] / MTDJeff
--- NOTE | 2021-09-21 15:53 | CDI ---
Documentation Clarification Form Date: 10/01/21 From: CAMRYN Betts Admit Date: 08/31/2021 03:32:00 AM Patient Name: David Willoughby Visit Number: [id number] Discharge Date: 09/03/2021 11:52:00 AM ATTENTION: The Clinical Documentation Specialists (CDI) and [facility] Coding Staff appreciate your assistance in clarifying documentation. Please respond to the clarification below the line at the bottom and electronically sign. The CDI & [facility] Coding staff will review the response and follow-up if needed. Please note: Queries are made part of the Legal Health Record. If you have any questions, please contact the author of this message via ITS. Dr. Nava, Question of aspiration pneumonitis with a sputum growing staph aureus with question of MSSA versus community associated MRSA is documented the 09/02 Consultation. Additional clarification regarding the type of pneumonia is requested. History/Risk Factors: Patient with acute respiratory failure which is multifactorial. He presented with an STEMI. Patient was noted to be running a fever and did have an elevated white blood count likely combination of septic and cardiogenic shock. Clinical Indicators: 09/02/21 15:34 T 100.6, Pulse 131, RR 36 BP 78/46, Pulse Ox 94 WBC on 08/31 19.3 X-ray: Bilateral patchy densities are present within the lungs Treatment: Antibiotics Vancomycin O2 Please clarify the type of pneumonia, if known (multiple types may be chosen): [ ] Aspiration Pneumonia, Due to food or vomitus [ ] Bacterial Pneumonia, specify causal organism (if known) [ ] Bacterial Pneumonia Due to Staph [ ] Other bacteria (please specify) [ ] Viral Pneumonia, specify casual organism (if known) [ ] Ventilator Associated Pneumonia [ ] Other, please specify [ ] Unable to determine Aspiration Pneumonia, Due to food or vomitus MTDD
--- NOTE | 2021-09-21 16:02 | CDI ---
Documentation Clarification Form Date: 09/21/21 From: CAMRYN Betts Admit Date: 08/31/2021 03:32:00 AM Patient Name: David Willoughby Visit Number: [id number] Discharge Date: 09/03/2021 11:52:00 AM ATTENTION: The Clinical Documentation Specialists (CDI) and [facility] Coding Staff appreciate your assistance in clarifying documentation. Please respond to the clarification below the line at the bottom and electronically sign. The CDI & [facility] Coding staff will review the response and follow-up if needed. Please note: Queries are made part of the Legal Health Record. If you have any questions, please contact the author of this message via ITS. Dr. Carlito Abrahamed There is documentation of this patient running a fever with an elevated white count which is noted to be 'likely combination of septic and cardiogenic shock. Additional clarification is requested. History/Risk Factors: Patient was admitted with STEMI and acute respiratory failure. There is a question of aspiration pneumonitis with a sputum growing staph aureus with question of MSSA versus community associated MRSA. Vital signs: 09/02 15:34 T 100.6, Pulse 131, RR 36, BP 78/46, Pulse Ox 94L Treatment: Vancomycin, IV fluid Can you please clarify if combination of septic and cardiogenic shock is ruled in or ruled out? [ x ] Ruled in [ ] Ruled out [ ] Other, please specify [ ] Unable to determine MTDD
--- NOTE | 2021-10-01 13:36 | ECHOF ---
Referral Reason:R/O effusion MEASUREMENTS -------- HEIGHT: 0.0 cm WEIGHT: 0.0 kg BP: FINDINGS -------- STAT STUDY DONE IN [facility] [employer] [employer] There is no pericardial effusion. PSYCHOLOGY INSTRUCTOR: Alia Gerardo RDCS
== END 2021-09-03 11:52 | disposition expired | DRG 215 ==
LOC: EC 02:42 → 2SICU 02:53
PROVIDERS: ADMIT Hospitalist; ATTEND Hospitalist
PROC: 5A1945Z Respiratory Ventilation, 24-96 Consecutive Hours (ICD-10-PCS; 2021-08-31)
PROC: 4A133B1 Monitoring of Arterial Pressure, Peripheral, Percutaneous Approach (ICD-10-PCS; 2021-09-01)
PROC: 03HY32Z Insertion of Monitoring Device into Upper Artery, Percutaneous Approach (ICD-10-PCS; 2021-09-01)
PROC: 4A133J1 Monitoring of Arterial Pulse, Peripheral, Percutaneous Approach (ICD-10-PCS; 2021-09-01)
PROC: 30233N1 Transfusion of Nonautologous Red Blood Cells into Peripheral Vein, Percutaneous Approach (ICD-10-PCS; 2021-09-02)
PROC: 04HK3DZ Insertion of Intraluminal Device into Right Femoral Artery, Percutaneous Approach (ICD-10-PCS; principal; 2021-09-02 07:30)
PROC: 4A023N7 Measurement of Cardiac Sampling and Pressure, Left Heart, Percutaneous Approach (ICD-10-PCS; principal; 2021-09-02 07:30)
PROC: 5A0221D Assistance with Cardiac Output using Impeller Pump, Continuous (ICD-10-PCS; principal; 2021-09-02 07:30)
PROC: 027036Z Dilation of Coronary Artery, One Artery with Three Drug-eluting Intraluminal Devices, Percutaneous Approach (ICD-10-PCS; principal; 2021-09-02 07:30)
PROC: 02703ZZ Dilation of Coronary Artery, One Artery, Percutaneous Approach (ICD-10-PCS; principal; 2021-09-02 07:30)
PROC: B211YZZ Fluoroscopy of Multiple Coronary Arteries using Other Contrast (ICD-10-PCS; principal; 2021-09-02 07:30)
PROC: 04HL3DZ Insertion of Intraluminal Device into Left Femoral Artery, Percutaneous Approach (ICD-10-PCS; principal; 2021-09-02 07:30)
PROC: 02HA3RZ Insertion of Short-term External Heart Assist System into Heart, Percutaneous Approach (ICD-10-PCS; principal; 2021-09-02 07:30)
PROC: B215YZZ Fluoroscopy of Left Heart using Other Contrast (ICD-10-PCS; principal; 2021-09-02 07:30)
DX: I21.09 ST elevation (STEMI) myocardial infarction involving other coronary artery of anterior wall (principal); J96.01 Acute respiratory failure with hypoxia; I49.02 Ventricular flutter; K72.00 Acute and subacute hepatic failure without coma; J69.0 Pneumonitis due to inhalation of food and vomit; J81.0 Acute pulmonary edema; N17.9 Acute kidney failure, unspecified; E87.1 Hypo-osmolality and hyponatremia; E87.4 Mixed disorder of acid-base balance; I47.1 Supraventricular tachycardia; Z51.5 Encounter for palliative care; Z66 Do not resuscitate; I46.2 Cardiac arrest due to underlying cardiac condition; Z20.822 Contact with and (suspected) exposure to COVID-19; I25.5 Ischemic cardiomyopathy; I25.10 Atherosclerotic heart disease of native coronary artery without angina pectoris; R73.9 Hyperglycemia, unspecified; I48.91 Unspecified atrial fibrillation; I49.01 Ventricular fibrillation; B95.61 Methicillin susceptible Staphylococcus aureus infection as the cause of diseases classified elsewhere; Z79.82 Long term (current) use of aspirin; D64.9 Anemia, unspecified; F17.200 Nicotine dependence, unspecified, uncomplicated; Z88.0 Allergy status to penicillin; Z82.49 Family history of ischemic heart disease and other diseases of the circulatory system; Z91.018 Allergy to other foods
CPT/HCPCS: 33990; 36415; 71045; 80053; 80061; 80306; 82330; 82805; 82810; 83036; 83605; 83615; 83735; 84145; 84484; 85018; 85025; 85027; 85384; 85610; 85730; 86850; 86900; 86901; 86920; 87040; 87070; 87077; 87086; 87186; 87205; 87635; 92920; 92921; 92950; 93005; 93306; 93308; 93456; 93458; 94002; 94003; 96374; 99285